=== PATIENT | female | born 1935 | race Caucasian/White ===

== ENCOUNTER → 2017-12-13 07:40 | Outpatient (CLI) | payer MEDICARE, SELFPAY ==
[2017-12-13 08:15] LABS: Add Manual Diff / Slide Review NO; Basophils Percent Auto 0.8 % (0-2); Eosinophils Percent Auto 1.7 % (2-4); Hematocrit 35.4 % (36-46); Hemoglobin 12.1 g/dL (12.0-16.0); Lymphocytes Percent Auto 26.3 % (25-40); Mean Corpuscular HGB Conc 34.2 % (30-36); Mean Corpuscular Hemoglobin 32.1 PG (26-34); Monocytes Percent Auto 14.3 % (3-14); Neutrophils Absolute Auto 2700 /uL (3000-5900); Neutrophils Percent Auto 56.9 % (50-75); Platelet Count 235 X10^3/uL (150-400); Red Blood Cell Count 3.77 X10^6/uL (4.0-5.2); White Blood Cell Count 4.8 X10^3/uL (4.5-11.0)
[2017-12-13 08:45] LABS: Alanine Aminotransferase 20 IU/L (9-52); Albumin Globulin Ratio 1.2 (1.0-2.8); Alkaline Phosphatase 76 U/L (38-126); Aspartate Aminotransferase 29 IU/L (14-36); BUN Creatinine Ratio 28.9 (6-22); Bilirubin Total 0.7 mg/dL (0.2-1.3); Blood Urea Nitrogen 26 mg/dL (7-17); Calcium 9.7 mg/dL (8.4-10.2); Carbon Dioxide 34 mmol/L (22-32); Chloride 101 mmol/L (98-107); Cholesterol 204 mg/dL (140-199); Estimated Glomerular Filt Rate > 60.0 mL/min (>60); Globulin 3.4 g/dL (1.7-4.1); Glucose 90 mg/dL (80-110); HDL Cholesterol 51 mg/dL (40-60); HEMOLYSIS < 15 (0-50); LDL Cholesterol Calculated 130 mg/dL (<100); Potassium 3.8 mmol/L (3.4-5.1); Sodium 144 mmol/L (137-145); Total Protein 7.4 g/dL (6.3-8.2); Triglycerides 113 mg/dL (35-150)
[2017-12-13 09:25] LABS: Thyroid Stimulating Hormone 2.12 uIU/mL (0.47-4.68)
== END ==
PROVIDERS: PCP Family Medicine; Visit Provider Family Medicine
DX: I10 Essential (primary) hypertension (principal); Z13.9 Encounter for screening, unspecified; E78.5 Hyperlipidemia, unspecified
CPT/HCPCS: 36415; 80053; 80061; 84443; 85025

== ENCOUNTER → 2018-05-18 09:17 | Outpatient (CLI) | payer MEDICARE, SELFPAY ==
[2018-05-18 10:05] LABS: Add Manual Diff / Slide Review NO; Basophils Absolute Auto 100 /uL (0-100); Basophils Percent Auto 1.1 % (0-2); Eosinophils Absolute Auto 200 /uL (0-450); Eosinophils Percent Auto 4.5 % (2-4); Hematocrit 36.1 % (36-46); Hemoglobin 12.1 g/dL (12.0-16.0); Lymphocytes Absolute Auto 1100 /uL (1100-4500); Mean Corpuscular HGB Conc 33.5 % (30-36); Mean Corpuscular Hemoglobin 31.9 PG (26-34); Mean Corpuscular Volume 95.1 fL (80-100); Monocytes Absolute Auto 700 /uL (0-900); Monocytes Percent Auto 15.6 % (3-14); Neutrophils Absolute Auto 2700 /uL (1500-7000); Neutrophils Percent Auto 55.8 % (50-75); Platelet Count 251 X10^3/uL (150-400); Red Cell Distribution Width 13.1 % (11.6-14.8); White Blood Cell Count 4.8 X10^3/uL (4.5-11.0)
[2018-05-18 10:37] LABS: Alanine Aminotransferase 23 IU/L (9-52); Albumin 4.1 g/dL (3.5-5.0); Albumin Globulin Ratio 1.2 (1.0-2.8); Alkaline Phosphatase 81 U/L (38-126); Aspartate Aminotransferase 27 IU/L (14-36); BUN Creatinine Ratio 28.9 (6-22); Bilirubin Total 0.6 mg/dL (0.2-1.3); Blood Urea Nitrogen 26 mg/dL (7-17); Calcium 9.4 mg/dL (8.4-10.2); Carbon Dioxide 30 mmol/L (22-32); Chloride 100 mmol/L (98-107); Cholesterol 202 mg/dL (140-199); Estimated Glomerular Filt Rate 59.9 mL/min (>60); Globulin 3.3 g/dL (1.7-4.1); Glucose 89 mg/dL (80-110); HDL Cholesterol 50 mg/dL (40-60); HEMOLYSIS < 15 (0-50); LDL Cholesterol Calculated 133 mg/dL (<100); Potassium 3.8 mmol/L (3.4-5.1); Sodium 139 mmol/L (137-145); Total Protein 7.4 g/dL (6.3-8.2); Triglycerides 94 mg/dL (35-150)
== END ==
PROVIDERS: PCP Family Medicine; Visit Provider Family Medicine
DX: E78.5 Hyperlipidemia, unspecified (principal); I10 Essential (primary) hypertension
CPT/HCPCS: 36415; 80053; 80061; 85025

== ENCOUNTER → 2018-07-16 14:13 | Outpatient (CLI) | payer MEDICARE, SELFPAY ==
[2018-07-16 16:34] LABS: Bacteria Urine Few (2-10); RBC Urine 1-5/HPF (0-5/HPF); Squamous Epithelial Cell Urine None Seen (0-5/HPF); WBC Urine 1-5/HPF (0-5/HPF)
== END ==
PROVIDERS: PCP Family Medicine; Visit Provider Physician Assistant
DX: R31.9 Hematuria, unspecified (principal)
CPT/HCPCS: 81015; 87077; 87086; 87147; 87186

== ENCOUNTER → 2018-08-02 10:07 | Outpatient (CLI) | payer MEDICARE, SELFPAY ==
--- NOTE | 2018-08-02 10:09 | DI.RAD.S_ITS ---
PROCEDURE: XR HIP W PEL IF DONE RT 2V INDICATIONS: R hip pain TECHNIQUE: Single view of the hip were acquired. COMPARISON: [facility], , HIP 2V RIGHT, 06/27/2008, 9:14. FINDINGS: Bones: There is moderate to severe right hip joint space narrowing. This is increased in severity when compared with the prior film dated 06/27/08. Small osteophytes are now present as well. Soft tissues: No suspicious soft tissue calcifications or masses. IMPRESSION: Progressive osteoarthritis of the right hip joint. Dictated by: Aixa Faria M.D. on 08/02/2018 at 11:37 Approved by: Aixa Faria M.D. on 08/02/2018 at 11:38
--- NOTE | 2018-08-02 10:09 | DI.RAD.S_ITS ---
PROCEDURE: XR LUMBAR SPINE 2-3V INDICATIONS: Low back pain TECHNIQUE: 3 views of the lumbar spine were acquired. COMPARISON: None. FINDINGS: Bones: 5 [id number] vertebrae are present. There is grade I L2 on L3 retrolisthesis and L4 on L5 anterolisthesis. Severe degenerative changes are present throughout the lumbar spine including intervertebral disc space narrowing, endplate sclerosis, osteophytosis, and facet sclerosis. Soft tissues: Dense atheromatous calcifications are present throughout the abnormal aorta. Overlying bowel gas pattern is normal. IMPRESSION: Severe degenerative change and anterolisthesis. Aortic atherosclerosis. Dictated by: Aixa Faria M.D. on 08/02/2018 at 11:38 Approved by: Aixa Faria M.D. on 08/02/2018 at 11:39
== END ==
PROVIDERS: PCP Family Medicine; Visit Provider Family Medicine
DX: M25.551 Pain in right hip (principal); M16.11 Unilateral primary osteoarthritis, right hip; M54.5 Low back pain; M47.816 Spondylosis without myelopathy or radiculopathy, lumbar region; M43.16 Spondylolisthesis, lumbar region; I70.0 Atherosclerosis of aorta
CPT/HCPCS: 72100; 73502

== ENCOUNTER 2018-10-03 07:00 | Outpatient (CLI) | payer MEDICARE, SELFPAY ==
[2018-10-03] MEDS: PROPARACAINE 0.5% OPHTH SOL 2 DROPS EYE-OP (07:10)
[2018-10-03] MEDS: CATARACT EYE COMPOUND (10 DROPS/SYRINGE) 3 DROPS EYE-OP (07:15)
[2018-10-03 07:19] VITALS: BP 125/70; PULSE 72; RESP 15; TEMP 36.8; O2SAT 97; BMI 28.3
--- NOTE | 2018-10-03 07:46 | PM.PREOP ---
Pre-operative Note Interval Note History & Physical reviewed/Exam performed by Physician: No Changes to H&P: No
--- NOTE | 2018-10-03 07:46 | PM.OP.1 ---
Operative Date/Time/Diagnoses Pre-op diagnosis: Nuclear cataract right eye Procedure & Clinicians Procedure: Cataract Surgery Same procedure as scheduled: Yes Surgeon: Isra Martinez Anesthesia Type: MAC +/- and Sedation Operative Notes Procedure in detail: Patient brought to the operating suite. Tetracaine drops placed in the right eye. Patient was prepped and draped in sterile manner. Wire lid speculum was placed in the eye. Betadine drops were placed on the eye. This was irrigated. Lidocaine jelly was placed on the eye. A paracentesis port was created with a side-port blade. 0.1 mL 1% preservative free lidocaine was injected into the anterior chamber. The anterior chamber was deepened with viscoelastic. 2.6 mm keratome was used to create a temporal clear corneal incision. Cystotome and Utrata forceps were used to create continuous tear capsulorrhexis. Balanced salt solution was used to hydro dissect the nucleus. The phacoemulsification handpiece was inserted and the nucleus was removed using the stop and chop technique. The irrigation aspiration handpiece was inserted and the remaining cortex was removed. Anterior chamber was deepened with viscoelastic. An Real ZCB00 intraocular lens with a power of 18.0 was injected into the capsular bag. Irrigation aspiration handpiece was inserted and the remaining viscoelastic was removed. Incision was hydrated with balanced salt solution and found to be leak free with pressure with Weck-Genoveva sponges. 0.1 mL Vigamox injected anterior chamber. 0.3 mL Kenalog 10 mg was injected subconjunctivally. Lid speculum was removed. The patient left the operating room in excellent condition. Complications: none Condition: stable Disposition: same day surgery
[2018-10-03 08:03] VITALS: BP 105/60; PULSE 63; RESP 16; TEMP 36.1; O2SAT 100
[2018-10-03] MEDS: MOXIFLOXACIN OPHTH DROPS 3 ML BOTTLE 2 DROPS INJ (08:27)
[2018-10-03] MEDS: TRIAMCINOLONE 50 MG/5 ML VIAL INJ (08:27)
[2018-10-03] MEDS: PHENYLEPHRINE/LIDOCAINE VIAL (OR) 0.2 ML EYE-OP (08:27)
[2018-10-03] MEDS: CHONDROIDTIN/SOD HYALURONATE 1.05 ML SYRINGE INTRAOCULA (08:28)
[2018-10-03] MEDS: BALANCED SALT IRRIG SOLN NO.2 500 ML, EPINEPHrine 1 MG IRR (08:28)
[2018-10-03] MEDS: TETRACAINE 0.5% OPHTH DROPS 4 ML 2 DROPS EYE-OP (08:28)
== END 2018-10-03 08:20 ==
PROVIDERS: PCP Family Medicine; Visit Provider Ophthalmology
PROC: (CPT 66984; principal; 2018-10-03 07:45)
DX: H25.11 Age-related nuclear cataract, right eye (principal); I10 Essential (primary) hypertension
CPT/HCPCS: 66984; J0171; J2250; J3301

== ENCOUNTER 2018-10-17 06:29 | Day surgery (SDC) | payer MEDICARE, SELFPAY ==
[2018-10-17 07:10] VITALS: BP 126/62; PULSE 69; RESP 15; TEMP 36.3; O2SAT 96; BMI 28.1
[2018-10-17] MEDS: PROPARACAINE 0.5% OPHTH SOL 2 DROPS EYE-OP (07:14)
[2018-10-17] MEDS: CATARACT EYE COMPOUND (10 DROPS/SYRINGE) 3 DROPS EYE-OP (07:16)
--- NOTE | 2018-10-17 07:44 | PM.PREOP ---
Pre-operative Note Interval Note History & Physical reviewed/Exam performed by Physician: No Changes to H&P: No
--- NOTE | 2018-10-17 07:45 | PM.OP.1 ---
Operative Date/Time/Diagnoses Pre-op diagnosis: Nuclear Cataract Left eye Post-op diagnosis: same Procedure & Clinicians Surgeon: Isra Martinez Anesthesia Type: MAC +/- and Sedation Operative Notes Procedure in detail: Patient brought to the operating suite. Tetracaine drops placed in the left eye. Patient was prepped and draped in sterile manner. Wire lid speculum was placed in the eye. Betadine drops were placed on the eye. This was irrigated. Lidocaine jelly was placed on the eye. A paracentesis port was created with a side-port blade. 0.1 mL 1% preservative free lidocaine was injected into the anterior chamber. The anterior chamber was deepened with viscoelastic. 2.6 mm keratome was used to create a temporal clear corneal incision. Cystotome and Utrata forceps were used to create continuous tear capsulorrhexis. Balanced salt solution was used to hydro dissect the nucleus. The phacoemulsification handpiece was inserted and the nucleus was removed using the stop and chop technique. The irrigation aspiration handpiece was inserted and the remaining cortex was removed. Anterior chamber was deepened with viscoelastic. An Real ZCB00 intraocular lens with a power of 19.5 was injected into the capsular bag. Irrigation aspiration handpiece was inserted and the remaining viscoelastic was removed. Incision was hydrated with balanced salt solution and found to be leak free with pressure with Weck-Genoveva sponges. 0.1 mL Vigamox injected anterior chamber. 0.3 mL Kenalog 10 mg was injected subconjunctivally. Lid speculum was removed. The patient left the operating room in excellent condition. Complications: none Condition: stable Disposition: same day surgery
[2018-10-17] MEDS: PHENYLEPHRINE/LIDOCAINE VIAL (OR) 0.2 ML EYE-OP (07:51)
[2018-10-17] MEDS: MOXIFLOXACIN OPHTH DROPS 3 ML BOTTLE 2 DROPS INJ (07:51)
[2018-10-17] MEDS: CHONDROIDTIN/SOD HYALURONATE 1.05 ML SYRINGE INTRAOCULA (07:52)
[2018-10-17] MEDS: LIDOCAINE JELLY 2% 5 ML 1 APPLIC TOP (07:52)
[2018-10-17] MEDS: TETRACAINE 0.5% OPHTH DROPS 4 ML 2 DROPS EYE-OP (07:52)
[2018-10-17] MEDS: BALANCED SALT IRRIG SOLN NO.2 500 ML, EPINEPHrine 1 MG IRR (07:52)
[2018-10-17] MEDS: TRIAMCINOLONE 50 MG/5 ML VIAL INJ (07:52)
[2018-10-17 08:00] VITALS: BP 111/67; PULSE 60; RESP 12; TEMP 36; O2SAT 98
== END 2018-10-17 08:18 | disposition home or self-care (01) ==
LOC: OR 06:30
PROVIDERS: PCP Family Medicine; Visit Provider Ophthalmology
PROC: (CPT 66984; principal; 2018-10-17 07:45)
DX: H25.12 Age-related nuclear cataract, left eye (principal); I10 Essential (primary) hypertension
CPT/HCPCS: 66984; J0171; J2250; J3010; J3301

== ENCOUNTER → 2018-11-16 14:19 | Outpatient (CLI) | payer MEDICARE, SELFPAY | PROVIDERS: PCP Family Medicine; Visit Provider Family Medicine | DX: M85.852 Other specified disorders of bone density and structure, left thigh (principal); Z78.0 Asymptomatic menopausal state; M85.851 Other specified disorders of bone density and structure, right thigh | CPT/HCPCS: 77080 ==

== ENCOUNTER 2018-11-29 16:45 | Outpatient (RCR) | payer MEDICARE, SELFPAY ==
--- NOTE | 2018-09-01 16:39 | PT.OIE ---
Current Diagnoses Unilateral primary osteoarthritis, unspecified hip (09/01/18) Spondylosis without myelopathy or radiculopathy, site unspecified (09/01/18) Past Medical History (Last Reviewed 01/02/18 @ 12:53 by Natalie Warren DO) Carotid bruit (Chronic Unknown) Hyperlipemia (Chronic Unknown) Hypertension (Chronic Unknown) Osteoarthritis (Chronic ~2009) Osteopenia (Chronic ~2017) Anemia (Resolved Unknown) Chickenpox (Resolved) Fractures (Resolved Unknown) Hematuria (Resolved Unknown) Hemorrhoids (Resolved ~2010) Measles (Resolved) Mumps (Resolved) Past Surgical History (Last Reviewed 10/19/17 @ 14:01 by Natalie Warren DO) History of knee replacement (Resolved ~2001) Provider Visit Care Team Role Provider Type Natalie Warren DO Attending Provider Physician Primary Care Provider Specialty: Family Practice Address: [address] [place] [address] Email: [email or web address] Physical Therapy Initial Evaluation PT-OP-A Visit Information Start: 09/01/18 14:45 Freq: Status: Active Protocol: Document 09/01/18 13:45 HH (Rec: 09/01/18 15:15 [email or web address]) Out-Patient Physical Therapy Visit Information Visit Information Visit Type Initial Evaluation Visit Start Time 13:45 Visit Stop Time 14:30 Total Visit Minutes 45 Visit Number 1 Number of CRUTCHING CONTRACTOR Visits 0 Evaluation Information Evaluation Date 09/01/18 PT-OP-B Current Condition Start: 09/01/18 14:45 Freq: Status: Active Protocol: Document 09/01/18 13:45 HH (Rec: 09/01/18 15:15 [email or web address]) Current Condition History of Current Condition Onset Date >1 year ago Current Complaints B carpel tunnel syndrome, difficulty in readying and knitting History of Current Condition pt presents to clinic today with primary c/o of B carpel tunnel syndrome started more than a year ago. Pt does not know why but symptoms tend to start while she is knitting and reading. She also c/o ongoing R shoulder pain but it does not bother her functional mobility at this point. She describes it as numbness and tingling sensation at 2nd-4th finger tips and bilateral wrists. symptoms usually get worse with knitting or holding her book for more than 10-15 mins that she has to stop and rest in order to relieve her symptoms. She also stated placing her fingers into extension also relieve her symptoms. In addition, she is now having difficulty in sleeping too with intermittent tingling and numbness sensation. Pt did not have physical therapy before. Prior Treatments and Tests pt did not have any diagnostic imaging done. Future Testing and Treatments Planned Pt is going to have PT evaluation for her LBP and L knee pain next week Treatment Goals Patient/Caregiver Goals 1. able to knit as long as she can without pain 2. able to read more than an hour without symptoms 3. to improve overall shoulder strength Prior Functional Status Baseline Function- ADL's Independent Baseline Function- Mobility Independent Baseline Function- Recreation/Hobbies Pt was able to knit and read for more than an hour Current Functional Impairments (Reported) Functional Limitations- Recreation/ unable to knit and read for Hobbies more than 10 mins PT-OP-C Subjective Start: 09/01/18 14:45 Freq: Status: Active Protocol: Document 09/01/18 13:45 HH (Rec: 09/01/18 15:15 [email or web address]) OP-PT Subjective Patient Comments Patient Comments I want to get better OP-PT Pain Assessment Location Right Shoulder Pain Location Details r shoulder joint Intensity 2 Scale Used Numeric (1 - 10) Description Aching Dull Frequency Intermittent Pain Aggravating Factors Exercise Lifting Pain Alleviating Factors Inactivity PT-OP-F Manual Assessment Start: 09/01/18 14:45 Freq: Status: Active Protocol: Document 09/01/18 13:45 HH (Rec: 09/01/18 16:39 [email or web address]) Manual Assessments Joint Mobility Assessment Joint Mobility Assessment hypermobile lower cervical segmental mobility (C4-C6) Hypomobile upper thoracic segmental mobility (T1-T4) PT-OP-J Posture/Palpation/Skin Start: 09/01/18 14:45 Freq: Status: Active Protocol: Document 09/01/18 13:45 HH (Rec: 09/01/18 15:15 [email or web address]) Posture Evaluation Position Standing Evaluation View Lateral Head/C-Spine Posture Forward Head T-Spine Posture Increased Kyphosis L-Spine Posture Flexed Pelvis Posture Anteriorly Tilted PT-OP-K Range of Motion Start: 09/01/18 14:45 Freq: Status: Active Protocol: Document 09/01/18 13:45 HH (Rec: 09/01/18 15:15 [email or web address]) Cervical Spine Range of Motion Cervical Spine Active Degrees Testing Position Sitting Flexion 35 Extension 15 Rotation Left 45 Rotation Right 40 Lateral Flexion Left 25 Lateral Flexion Right 23 ROM Limitations Soft Tissue Tightness Muscle Weakness Shoulder Goniometric Range of Motion Shoulder Right Active Shoulder ROM WFL No Testing Position Standing Flexion 130 Extension 65 Abduction 115 Left Active Shoulder ROM WFL No Testing Position Standing Flexion 130 Extension 65 Abduction 115 PT-OP-L Special Tests Start: 09/01/18 14:45 Freq: Status: Active Protocol: Document 09/01/18 13:45 HH (Rec: 09/01/18 15:15 [email or web address]) Special Tests Cervical Spine Special Tests Upper Limb Tension Test Test Results +VE B Comments R >L Spurling's Test Test Results -ve B Foraminal Compression Test Results +ve on R PT-OP-M Strength Start: 09/01/18 14:45 Freq: Status: Active Protocol: Document 09/01/18 13:45 HH (Rec: 09/01/18 15:15 [email or web address]) Cervical Spine Strength Cervical Spine Manual Muscle Testing Testing Position Sitting Flexion (C1-2) 4 Good Extension 4- Good- Rotation Left 4 Good Rotation Right 4 Good Lateral Flexion Left (C3) 4 Good Lateral Flexion Right (C3) 4 Good Shoulder Strength Shoulder Manual Muscle Testing Right Flexion 4 Good Extension 4+ Good+ Abduction (C5) 4- Good- Left Flexion 4+ Good+ Extension 4+ Good+ Abduction (C5) 4+ Good+ PT-OP-Q Treatments Start: 09/01/18 14:45 Freq: Status: Active Protocol: Document 09/01/18 13:45 HH (Rec: 09/01/18 15:15 [email or web address]) Therapeutic Exercises Supine Exercises chin tuck Side bilateral Reps/Minutes 5 mins Comments cues on alignment and push against pillow Manual Therapy Treatment Manual Traction Cervical Body Position Supine Reps/Duration 10 mins Nerve Glides median nerve glide Nerve median Body Position Supine Reps/Duration 5 mins PT-OP-T Assessment and Plan Start: 09/01/18 14:45 Freq: Status: Active Protocol: Document 09/01/18 13:45 HH (Rec: 09/01/18 15:15 [email or web address]) Physical Therapy Assessment Rehab Potential Rehabilitation Potential Good Evaluation Complexity Number of Personal Factors/Comorbidities 3 or More Number of Body Systems Impaired 4 or More Clinical Presentation at Evaluation Stable Impairments Impairments Activity Tolerance Functional Activities Functional Mobility Pain Posture ROM Soft Tissue Mobility Strength Other Concerns Fall Risk mod Goals HEP Impairment pt does not have a HEP Senior Care Goal (LTG) Pt will be able to follow HEP independently with proper and safe body mechanics LTG Duration 6 weeks neurological symptoms Impairment intermittent tingling and numbness sensation on both hands Tool Drawing Checker Goal (LTG) Pt will not experience tingling/numbness sensation on both hands during knitting/ book reading for more than 30 mins. LTG Duration 10 weeks strength Impairment Slight decreased b shoulder strength Senior Care Goal (LTG) Pt will be able to increase 1 MMT grade of B shoulder strength to improver her overhead mobility LTG Duration 10 weeks Assessment Summary Assessment Pt is low complexity with B Carpel Tunnel Syndrome. Pt currently does not c/o pain and symptoms unless during knitting and reading. Upon assessment, pt's symptoms are reproduced with increased numbness and tingling with cervical compression test and upper limb tension test. Pt also demonstrates a significant forward head posture with dowager hump at T1-T2 along with increased thoracic kyphosis. During mobility assessment, pt's cervical movements primarily take place at C6/C7 with noticeable angulation during cervical extension and lateral flexion. This possibly increases nerve root pressure at lower cervical region which leads to pt's symptoms. Pt will benefit from skilled therapy for postural sabianist, overall scapular and cervical musculature strengthening and flexibility training. Physical Therapy Plan Frequency and Duration Frequency of Treatment 2x/Week Duration of Treatment 10 weeks Plan of Care Start Date 09/01/18 Plan of Care End Date 11/19/18 Therapeutic Interventions Therapeutic Interventions Home Exercise Program Joint Mobilizations Manual Therapy Neuromuscular Re-education Patient/Caregiver Education Self-Care/Home Management Soft Tissue Mobilization Taping Therapeutic Activities Therapeutic Exercises Modalities Cold Pack/Ice Massage Electric Stimulation Hot Packs Infrared Therapy Traction- Mechanical Ultrasound Next Visit Focus/Plan Next Note Type Treatment Note Next Visit Plan provide hep and quick dash questionnaire reading and sleeping position education test chief guard strength review chin tuck, cervical stretch thoracic mobility training, nerve glide as danay
--- NOTE | 2018-09-01 16:40 | PT.OPPOC ---
Current Diagnoses Unilateral primary osteoarthritis, unspecified hip (09/01/18) Spondylosis without myelopathy or radiculopathy, site unspecified (09/01/18) Provider Visit Care Team Role Provider Type Natalie Warren DO Attending Provider Physician Primary Care Provider Specialty: [facility] Address: [address] [place] [address], [id number] Email: [email or web address] Plan Of Care PT-OP-T Assessment and Plan Start: 09/01/18 14:45 Freq: Status: Active Protocol: Document 09/01/18 13:45 HH (Rec: 09/01/18 15:15 HH [email or web address]) Physical Therapy Assessment Rehab Potential Rehabilitation Potential Good Evaluation Complexity Number of Personal Factors/Comorbidities 3 or More Number of Body Systems Impaired 4 or More Clinical Presentation at Evaluation Stable Impairments Impairments Activity Tolerance Functional Activities Functional Mobility Pain Posture ROM Soft Tissue Mobility Strength Other Concerns Fall Risk mod Goals HEP Impairment pt does not have a HEP Intermediate Goal (LTG) Pt will be able to follow HEP independently with proper and safe body mechanics LTG Duration 6 weeks neurological symptoms Impairment intermittent tingling and numbness sensation on both hands Intermediate Goal (LTG) Pt will not experience tingling/numbness sensation on both hands during knitting/ book reading for more than 30 mins. LTG Duration 10 weeks strength Impairment Slight decreased b shoulder strength Intermediate Goal (LTG) Pt will be able to increase 1 MMT grade of B shoulder strength to improver her overhead mobility LTG Duration 10 weeks Assessment Summary Assessment Pt is low complexity with B Carpel Tunnel Syndrome. Pt currently does not c/o pain and symptoms unless during knitting and reading. Upon asssessment, pt's symptoms are reproduced with increased numbness and tingling with cervical compression test and upper limb tension test. Pt also demonstrates a significant forward head posture with dowager hump at T1-T2 along with increased thoracic kyphosis. During mobility assessment, pt's cervical movements primarily take place at C6/C7 with noticeable angulation during cervical extension and lateral flexion. This possibly increases nerve root pressure at lower cervical region which leads to pt's symptoms. Pt will benefit from skilled therapy for postural samaritan, overall scapular and cervical musculature strengthening and flexibility training. Physical Therapy Plan Frequency and Duration Frequency of Treatment 2x/Week Duration of Treatment 10 weeks Plan of Care Start Date 09/01/18 Plan of Care End Date 11/19/18 Therapeutic Interventions Therapeutic Interventions Home Exercise Program Joint Mobilizations Manual Therapy Neuromuscular Re-education Patient/Caregiver Education Self-Care/Home Management Soft Tissue Mobilization Taping Therapeutic Activities Therapeutic Exercises Modalities Cold Pack/Ice Massage Electric Stimulation Hot Packs Infrared Therapy Traction- Mechanical Ultrasound Next Visit Focus/Plan Next Note Type Treatment Note Next Visit Plan provide hep and quick dash questionnaire reading and sleeping position education test marble rubber strength review chin tuck, cervical stretch thoracic mobility training, nerve glide as danay Plan of Care Dates Plan of Care Start Date 09/01/18 Plan of Care End Date 11/19/18 Please Sign and Return: I have reviewed this Plan of Care and certify that the skilled therapy services above are required to meet the patient?s needs. Physician Signature Date Printed Name and Credentials Clinical Instructor Signature Printed Name and Credentials
--- NOTE | 2018-09-06 12:23 | PT.OTN ---
Current Diagnoses Unilateral primary osteoarthritis, unspecified hip (09/06/18) Spondylosis without myelopathy or radiculopathy, site unspecified (09/06/18) Physical Therapy Treatment Note PT-OP-A Visit Information Start: 09/01/18 14:45 Freq: Status: Active Protocol: Document 09/06/18 12:12 SA (Rec: 09/06/18 12:23 SA [email or web address]) Out-Patient Physical Therapy Visit Information Visit Information Visit Type Treatment Note Visit Start Time 09:00 Visit Stop Time 09:46 Total Visit Minutes 46 Visit Number 2 Number of CANNON FIRE DIRECTION SPECIALIST Visits 1 PT-OP-B Current Condition Start: 09/01/18 14:45 Freq: Status: Active Protocol: Document 09/01/18 13:45 HH (Rec: 09/01/18 15:15 HH [email or web address]) Current Condition History of Current Condition Onset Date >1 year ago Current Complaints B carpel tunnel syndrome, difficulty in readying and knitting History of Current Condition pt presents to clinic today with primary c/o of B carpel tunnel syndrome started more than a year ago. Pt does not know why but symptoms tend to start while she is knitting and reading. She also c/o ongoing R shoulder pain but it does not bother her functional mobility at this point. She decribes it as numbness and tingling sensation at 2nd-4th finger tips and bilateral wrists. symptoms usually get worse with knitting or holding her book for more than 10-15 mins that she has to stop and rest in order to relieve her symptoms. She also stated placing her fingers into extension also relieve her symptoms. In addition, she is now having difficulty in sleeping too with intermittent tingling and numbness sensation. Pt did not have physical therapy before. Prior Treatments and Tests pt did not have any diagnostic imaging done. Future Testing and Treatments Planned Pt is going to have PT evaluation for her LBP and L knee pain next week Treatment Goals Patient/Caregiver Goals 1. able to knit as long as she can without pain 2. able to read more than an hour without symptoms 3. to improve overall shoulder strength Prior Functional Status Baseline Function- ADL's Independent Baseline Function- Mobility Independent Baseline Function- Recreation/Hobbies Pt was able to knit and read for more than an hour Current Functional Impairments (Reported) Functional Limitations- Recreation/ unable to knit and read for Hobbies more than 10 mins PT-OP-C Subjective Start: 09/01/18 14:45 Freq: Status: Active Protocol: Document 09/06/18 12:12 SA (Rec: 09/06/18 12:23 SA [email or web address]) OP-PT Subjective Patient Comments Patient Comments Pt reports she thinks she has been doing chin tucks wrong, numbness/tingling in B hands is about the same. PT-OP-F Manual Assessment Start: 09/01/18 14:45 Freq: Status: Active Protocol: Document 09/01/18 13:45 HH (Rec: 09/01/18 16:39 HH [email or web address]) Manual Assessments Joint Mobility Assessment Joint Mobility Assessment hypermobility lower cervical segmental mobility (C4-C6) Hypomobile upper thoracic segmental mobility (T1-T4) PT-OP-J Posture/Palpation/Skin Start: 09/01/18 14:45 Freq: Status: Active Protocol: Document 09/01/18 13:45 HH (Rec: 09/01/18 15:15 HH [email or web address]) Posture Evaluation Position Standing Evaluation View Lateral Head/C-Spine Posture Forward Head T-Spine Posture Increased Kyphosis L-Spine Posture Flexed Pelvis Posture Anteriorly Tilted PT-OP-K Range of Motion Start: 09/01/18 14:45 Freq: Status: Active Protocol: Document 09/01/18 13:45 HH (Rec: 09/01/18 15:15 HH [email or web address]) Cervical Spine Range of Motion Cervical Spine Active Degrees Testing Position Sitting Flexion 35 Extension 15 Rotation Left 45 Rotation Right 40 Lateral Flexion Left 25 Lateral Flexion Right 23 ROM Limitations Soft Tissue Tightness Muscle Weakness Shoulder Goniometric Range of Motion Shoulder Right Active Shoulder ROM WFL No Testing Position Standing Flexion 130 Extension 65 Abduction 115 Left Active Shoulder ROM WFL No Testing Position Standing Flexion 130 Extension 65 Abduction 115 PT-OP-L Special Tests Start: 09/01/18 14:45 Freq: Status: Active Protocol: Document 09/01/18 13:45 HH (Rec: 09/01/18 15:15 HH [email or web address]) Special Tests Cervical Spine Special Tests Upper Limb Tension Test Test Results +VE B Comments R >L Spurling's Test Test Results -ve B Foraminal Compression Test Results +ve on R PT-OP-M Strength Start: 09/01/18 14:45 Freq: Status: Active Protocol: Document 09/01/18 13:45 HH (Rec: 09/01/18 15:15 HH [email or web address]) Cervical Spine Strength Cervical Spine Manual Muscle Testing Testing Position Sitting Flexion (C1-2) 4 Good Extension 4- Good- Rotation Left 4 Good Rotation Right 4 Good Lateral Flexion Left (C3) 4 Good Lateral Flexion Right (C3) 4 Good Shoulder Strength Shoulder Manual Muscle Testing Right Flexion 4 Good Extension 4+ Good+ Abduction (C5) 4- Good- Left Flexion 4+ Good+ Extension 4+ Good+ Abduction (C5) 4+ Good+ PT-OP-Q Treatments Start: 09/01/18 14:45 Freq: Status: Active Protocol: Document 09/06/18 12:12 SA (Rec: 09/06/18 12:23 SA [email or web address]) Therapeutic Exercises Supine Exercises chin tuck Side bilateral Reps/Minutes 5 mins Comments cues on alignment and push against pillow Sitting Exercises Thoracic EXT/postural correction Side bilateral Reps/Minutes 3 min Comments cues for alignment UT/Scalenes stretch Side bilateral Reps/Minutes 30 x 4 each Standing Exercises Scapular rows Side bilateral Resistance TB LV 1 Reps/Minutes 15x Manual Therapy Treatment Soft Tissue Mobilization Sub-occipital, B UTs and scalenes Mobilization Type Myofascial Release Rolling Trigger Point Release Intensity/Depth Moderate Body Position Hooklying Manual Traction Cervical Body Position Supine Reps/Duration 10 mins Manual Techniques PROM to c-spine Body Location c-spine Body Position Hooklying Comments B rotation, side bend and ext with gentle end range stretch. PT-OP-T Assessment and Plan Start: 09/01/18 14:45 Freq: Status: Active Protocol: Document 09/06/18 12:12 SA (Rec: 09/06/18 12:23 [email or web address]) Physical Therapy Assessment Assessment Summary Assessment Pt provided with handout for HEP and review of form with exercises. Completed Quick dash and education for postural correction through out the day. Pt responded well to manual therapy. Physical Therapy Plan Next Visit Focus/Plan Next Visit Plan Follow up with HEP performance reading and sleeping position education test archival records clerk strength thoracic mobility training, nerve glide as danay
--- NOTE | 2018-09-08 16:13 | PT.OTN ---
Current Diagnoses Unilateral primary osteoarthritis, unspecified hip (09/08/18) Spondylosis without myelopathy or radiculopathy, site unspecified (09/08/18) Physical Therapy Treatment Note PT-OP-A Visit Information Start: 09/01/18 14:45 Freq: Status: Active Protocol: Document 09/08/18 11:15 HH (Rec: 09/08/18 16:13 HH [email or web address]) Out-Patient Physical Therapy Visit Information Visit Information Visit Type Treatment Note Visit Start Time 11:15 Visit Stop Time 12:00 Total Visit Minutes 45 Visit Number 3 Number of BURN NURSE Visits 0 PT-OP-B Current Condition Start: 09/01/18 14:45 Freq: Status: Active Protocol: Document 09/01/18 13:45 HH (Rec: 09/01/18 15:15 HH [email or web address]) Current Condition History of Current Condition Onset Date >1 year ago Current Complaints B carpel tunnel syndrome, difficulty in readying and knitting History of Current Condition pt presents to clinic today with primary c/o of B carpel tunnel syndrome started more than a year ago. Pt does not know why but symptoms tend to start while she is knitting and reading. She also c/o ongoing R shoulder pain but it does not bother her functional mobility at this point. She decribes it as numbness and tingling sensation at 2nd-4th finger tips and bilateral wrists. symptoms usually get worse with knitting or holding her book for more than 10-15 mins that she has to stop and rest in order to relieve her symptoms. She also stated placing her fingers into extension also relieve her symptoms. In addition, she is now having difficulty in sleeping too with intermittent tingling and numbness sensation. Pt did not have physical therapy before. Prior Treatments and Tests pt did not have any diagnostic imaging done. Future Testing and Treatments Planned Pt is going to have PT evaluation for her LBP and L knee pain next week Treatment Goals Patient/Caregiver Goals 1. able to knit as long as she can without pain 2. able to read more than an hour without symptoms 3. to improve overall shoulder strength Prior Functional Status Baseline Function- ADL's Independent Baseline Function- Mobility Independent Baseline Function- Recreation/Hobbies Pt was able to knit and read for more than an hour Current Functional Impairments (Reported) Functional Limitations- Recreation/ unable to knit and read for Hobbies more than 10 mins PT-OP-C Subjective Start: 09/01/18 14:45 Freq: Status: Active Protocol: Document 09/08/18 11:15 HH (Rec: 09/08/18 16:13 [email or web address]) OP-PT Subjective Patient Comments Patient Comments The hep is helping me. I feel less numb and tingling on my hands. But i had trouble doing trap stretch. Patient Reported Progress Improving Patient Questionnaires Quick Dash- Upper Extremity Quick Dash UE Score 36.36 Quick Dash UE Impairment 20 to 39% Impaired (Score 20- 39) PT-OP-F Manual Assessment Start: 09/01/18 14:45 Freq: Status: Active Protocol: Document 09/08/18 11:15 HH (Rec: 09/08/18 12:38 [email or web address]) Manual Assessments Soft Tissue Assessment Soft Tissue Mobility Assessment Significant tenderness to pressure on R paraspinals, R proximal glute max and medius, and piriformis PT-OP-G Mobility & Gait Start: 09/01/18 14:45 Freq: Status: Active Protocol: Document 09/08/18 11:15 HH (Rec: 09/08/18 12:38 [email or web address]) OP Gait Assessment Gait Gait Assistance Required: Independent Assistive Devices Assistive Device None Gait Deviations General Gait Pattern Antalgic Decreased Stride Length Decreased Feet Clearance Flexed Trunk Factors Limiting Gait Function Factors Limiting Gait Function Decreased Strength Limited Range of Motion Comments Gait Comments decreased time spent on LLE mid stance and early heel raise. flexed trunk during gait PT-OP-J Posture/Palpation/Skin Start: 09/01/18 14:45 Freq: Status: Active Protocol: Document 09/01/18 13:45 HH (Rec: 09/01/18 15:15 [email or web address]) Posture Evaluation Position Standing Evaluation View Lateral Head/C-Spine Posture Forward Head T-Spine Posture Increased Kyphosis L-Spine Posture Flexed Pelvis Posture Anteriorly Tilted PT-OP-K Range of Motion Start: 09/01/18 14:45 Freq: Status: Active Protocol: Document 09/08/18 11:15 HH (Rec: 09/08/18 12:38 [email or web address]) Lumbar Spine Range of Motion Lumbar Spine Active Percentage Testing Position Standing Flexion 70 Extension 0 Rotation Left 60 Rotation Right 60 Lateral Flexion Left 50 Lateral Flexion Right 50 Comments pain during lateral flexion and extension Hip Goniometric Range of Motion Hip Left Active Hip ROM WFL No Flexion w/Knee Flexed 120 Straight Leg Raise 90 Extension 0 Abduction 12 Right Active Hip ROM WFL No Flexion w/Knee Flexed 120 Straight Leg Raise 80 Extension 0 Abduction 10 PT-OP-L Special Tests Start: 09/01/18 14:45 Freq: Status: Active Protocol: Document 09/08/18 11:15 HH (Rec: 09/08/18 12:38 [email or web address]) Special Tests Lumbar Spine Special Tests facet syndrome Test Results +ve Comments R > L Hip Special Tests Scour Test Test Results +ve Comments pain at R hip joint CYNDI Test Results +Ve Comments on R pain at posterior hip PT-OP-M Strength Start: 09/01/18 14:45 Freq: Status: Active Protocol: Document 09/08/18 11:15 HH (Rec: 09/08/18 12:38 [email or web address]) Trunk Strength Trunk Manual Muscle Testing Testing Position Sitting Flexion 3+ Fair+ Extension 3+ Fair+ Rotation Left 3+ Fair+ Rotation Right 3+ Fair+ Lateral Flexion Left 3+ Fair+ Lateral Flexion Right 3+ Fair+ PT-OP-Q Treatments Start: 09/01/18 14:45 Freq: Status: Active Protocol: Document 09/08/18 11:15 HH (Rec: 09/08/18 16:13 [email or web address]) Therapeutic Exercises Supine Exercises supine sciatic nerve glide Supine Exercise Name hip 90 degrees with ankle DF and PF Side right Reps/Minutes 4 mins chin tuck Side bilateral Reps/Minutes 2 mins Comments cues on alignment and push against pillow Sidelying Exercises hip flexor stretch Side right Reps/Minutes 4 mins Sitting Exercises scap retraction and protraction Side bilateral Reps/Minutes 10 x2 table slides Side bilateral Reps/Minutes 10 x 3 Comments forward and diagonal direction UT/Scalenes stretch Side bilateral Reps/Minutes 30 x 4 each Comments correction on HEP to use chair edge for support Manual Therapy Treatment Soft Tissue Mobilization R gluteal max and piriformis Mobilization Type Cross-Friction Sustained Pressure Trigger Point Release Intensity/Depth Moderate Body Position Sidelying R lumbar paraspinals Mobilization Type Cross-Friction Strumming Sustained Pressure Trigger Point Release Intensity/Depth Moderate Body Position Sidelying Sub-occipital, B UTs and scalenes Mobilization Type Myofascial Release Rolling Trigger Point Release Intensity/Depth Moderate Body Position Hooklying PT-OP-T Assessment and Plan Start: 09/01/18 14:45 Freq: Status: Active Protocol: Document 09/08/18 11:15 HH (Rec: 09/08/18 16:13 HH [email or web address]) Physical Therapy Assessment Goals quick dash Impairment pt scores 36 (20-39 % impairment) Oil Rig Driller Goal (LTG) Pt will score 1-19 pts on quickdash to improve her functional neck and shoulder mobility. LTG Duration 10 weeks HEP Impairment pt does not have a HEP Prison Goal (LTG) Pt will be able to follow HEP independently with proper and safe body mechanics LTG Duration 6 weeks neurological symptoms Impairment intermittent tingling and numbness sensation on both hands Oil Rig Driller Goal (LTG) Pt will not experience tingling/numbness sensation on both hands during knitting/ book reading for more than 30 mins. LTG Duration 10 weeks strength Impairment Slight decreased b shoulder strength Prison Goal (LTG) Pt will be able to increase 1 MMT grade of B shoulder strength to improver her overhead mobility LTG Duration 10 weeks Assessment Summary Assessment Pt progressed well with less c /o on tingling/numbness sensation on both hands. Assess pt's hip and lumbar mobility today. Pt presents poor flexibility on B hip flexors and poor abdominal strength. Added table slides for trunk stretch Physical Therapy Plan Next Visit Focus/Plan Next Note Type Treatment Note Next Visit Plan Follow up with HEP performance reading and sleeping position education test tax examiner strength thoracic mobility training, nerve glide as danay hip flexor stretch postural education gait training as danay
--- NOTE | 2018-09-12 13:43 | PT.OTN ---
Current Diagnoses Unilateral primary osteoarthritis, unspecified hip (09/12/18) Spondylosis without myelopathy or radiculopathy, site unspecified (09/12/18) Physical Therapy Treatment Note PT-OP-A Visit Information Start: 09/01/18 14:45 Freq: Status: Active Protocol: Document 09/12/18 13:37 EA (Rec: 09/12/18 13:43 EA [id number]) Out-Patient Physical Therapy Visit Information Visit Information Visit Type Treatment Note Visit Start Time 13:00 Visit Stop Time 13:45 Total Visit Minutes 40 Visit Number 4 PT-OP-B Current Condition Start: 09/01/18 14:45 Freq: Status: Active Protocol: Document 09/01/18 13:45 HH (Rec: 09/01/18 15:15 HH [email or web address]) Current Condition History of Current Condition Onset Date >1 year ago Current Complaints B carpel tunnel syndrome, difficulty in readying and knitting History of Current Condition pt presents to clinic today with primary c/o of B carpel tunnel syndrome started more than a year ago. Pt does not know why but symptoms tend to start while she is knitting and reading. She also c/o ongoing R shoulder pain but it does not bother her functional mobility at this point. She decribes it as numbness and tingling sensation at 2nd-4th finger tips and bilateral wrists. symptoms usually get worse with knitting or holding her book for more than 10-15 mins that she has to stop and rest in order to relieve her symptoms. She also stated placing her fingers into extension also relieve her symptoms. In addition, she is now having difficulty in sleeping too with intermittent tingling and numbness sensation. Pt did not have physical therapy before. Prior Treatments and Tests pt did not have any diagnostic imaging done. Future Testing and Treatments Planned Pt is going to have PT evaluation for her LBP and L knee pain next week Treatment Goals Patient/Caregiver Goals 1. able to knit as long as she can without pain 2. able to read more than an hour without symptoms 3. to improve overall shoulder strength Prior Functional Status Baseline Function- ADL's Independent Baseline Function- Mobility Independent Baseline Function- Recreation/Hobbies Pt was able to knit and read for more than an hour Current Functional Impairments (Reported) Functional Limitations- Recreation/ unable to knit and read for Hobbies more than 10 mins PT-OP-C Subjective Start: 09/01/18 14:45 Freq: Status: Active Protocol: Document 09/12/18 13:37 EA (Rec: 09/12/18 13:43 EA [id number]) OP-PT Subjective Patient Comments Patient Comments Pt reports currently has no pain complaint; states back pain and stiffness happens early in the morning; and hand numbness is less frequent and mostly while doing knitting. Pt would like to know other exercises to prevent symptoms recurrence. Patient Reported Progress Improving PT-OP-F Manual Assessment Start: 09/01/18 14:45 Freq: Status: Active Protocol: Document 09/08/18 11:15 HH (Rec: 09/08/18 12:38 HH [email or web address]) Manual Assessments Soft Tissue Assessment Soft Tissue Mobility Assessment Significant tenderness to pressure on R paraspinals, R proximal glute max and medius, and piriformis PT-OP-G Mobility & Gait Start: 09/01/18 14:45 Freq: Status: Active Protocol: Document 09/08/18 11:15 HH (Rec: 09/08/18 12:38 HH [email or web address]) OP Gait Assessment Gait Gait Assistance Required: Independent Assistive Devices Assistive Device None Gait Deviations General Gait Pattern Antalgic Decreased Stride Length Decreased Feet Clearance Flexed Trunk Factors Limiting Gait Function Factors Limiting Gait Function Decreased Strength Limited Range of Motion Comments Gait Comments decreased time spent on LLE mid stance and early heel raise. flexed trunk during gait PT-OP-J Posture/Palpation/Skin Start: 09/01/18 14:45 Freq: Status: Active Protocol: Document 09/01/18 13:45 HH (Rec: 09/01/18 15:15 HH [email or web address]) Posture Evaluation Position Standing Evaluation View Lateral Head/C-Spine Posture Forward Head T-Spine Posture Increased Kyphosis L-Spine Posture Flexed Pelvis Posture Anteriorly Tilted PT-OP-K Range of Motion Start: 09/01/18 14:45 Freq: Status: Active Protocol: Document 09/08/18 11:15 HH (Rec: 09/08/18 12:38 HH [email or web address]) Lumbar Spine Range of Motion Lumbar Spine Active Percentage Testing Position Standing Flexion 70 Extension 0 Rotation Left 60 Rotation Right 60 Lateral Flexion Left 50 Lateral Flexion Right 50 Comments pain during lateral flexion and extension Hip Goniometric Range of Motion Hip Left Active Hip ROM WFL No Flexion w/Knee Flexed 120 Straight Leg Raise 90 Extension 0 Abduction 12 Right Active Hip ROM WFL No Flexion w/Knee Flexed 120 Straight Leg Raise 80 Extension 0 Abduction 10 PT-OP-L Special Tests Start: 09/01/18 14:45 Freq: Status: Active Protocol: Document 09/08/18 11:15 HH (Rec: 09/08/18 12:38 HH [email or web address]) Special Tests Lumbar Spine Special Tests facet syndrome Test Results +ve Comments R > L Hip Special Tests Scour Test Test Results +ve Comments pain at R hip joint CYNDI Test Results +Ve Comments on R pain at posterior hip PT-OP-M Strength Start: 09/01/18 14:45 Freq: Status: Active Protocol: Document 09/08/18 11:15 HH (Rec: 09/08/18 12:38 HH [email or web address]) Trunk Strength Trunk Manual Muscle Testing Testing Position Sitting Flexion 3+ Fair+ Extension 3+ Fair+ Rotation Left 3+ Fair+ Rotation Right 3+ Fair+ Lateral Flexion Left 3+ Fair+ Lateral Flexion Right 3+ Fair+ PT-OP-Q Treatments Start: 09/01/18 14:45 Freq: Status: Active Protocol: Document 09/12/18 13:37 EA (Rec: 09/12/18 13:43 EA [id number]) Therapeutic Exercises Supine Exercises 1 Supine Exercise Name Bridging Reps/Minutes x 10 reps supine sciatic nerve glide Supine Exercise Name hip 90 degrees with ankle DF and PF Side right Reps/Minutes 4 mins chin tuck Side bilateral Reps/Minutes 2 mins Comments cues on alignment and push against pillow Sidelying Exercises hip flexor stretch Side right Reps/Minutes 4 mins Sitting Exercises scap retraction and protraction Side bilateral Reps/Minutes 10 x2 Standing Exercises 2 Standing Exercise Name Wall posture Reps/Minutes x 5 mins 1 Standing Exercise Name Pectoral and antrior shoulder capsule stretch Scapular rows Side bilateral Resistance TB LV 1 Reps/Minutes 15x Self-Care/Home Management Treatment Education Patient Education Home Exercise Program Posture PT-OP-T Assessment and Plan Start: 09/01/18 14:45 Freq: Status: Active Protocol: Document 09/12/18 13:37 EA (Rec: 09/12/18 13:43 EA [id number]) Physical Therapy Assessment Assessment Summary Assessment Pt tolerated treatment exercises well; patient understands HEP given with handouts and agreeable to comply with it. Physical Therapy Plan Next Visit Focus/Plan Next Note Type Treatment Note Next Visit Plan Follow up with HEP performance reading and sleeping position education test bottom cementer strength thoracic mobility training, nerve glide as danay hip flexor stretch postural education gait training as danay
--- NOTE | 2018-09-14 12:45 | PT.OTN ---
Current Diagnoses Unilateral primary osteoarthritis, unspecified hip (09/14/18) Spondylosis without myelopathy or radiculopathy, site unspecified (09/14/18) Physical Therapy Treatment Note PT-OP-A Visit Information Start: 09/01/18 14:45 Freq: Status: Active Protocol: Document 09/14/18 12:00 DCW (Rec: 09/14/18 12:44 DCW [id number]) Out-Patient Physical Therapy Visit Information Visit Information Visit Type Treatment Note Visit Start Time 12:00 Visit Stop Time 12:45 Total Visit Minutes 45 Visit Number 5 Number of CINDER SNAPPER Visits 0 Evaluation Information Evaluation Date 09/01/18 PT-OP-B Current Condition Start: 09/01/18 14:45 Freq: Status: Active Protocol: Document 09/01/18 13:45 HH (Rec: 09/01/18 15:15 HH [email or web address]) Current Condition History of Current Condition Onset Date >1 year ago Current Complaints B carpel tunnel syndrome, difficulty in readying and knitting History of Current Condition pt presents to clinic today with primary c/o of B carpel tunnel syndrome started more than a year ago. Pt does not know why but symptoms tend to start while she is knitting and reading. She also c/o ongoing R shoulder pain but it does not bother her functional mobility at this point. She decribes it as numbness and tingling sensation at 2nd-4th finger tips and bilateral wrists. symptoms usually get worse with knitting or holding her book for more than 10-15 mins that she has to stop and rest in order to relieve her symptoms. She also stated placing her fingers into extension also relieve her symptoms. In addition, she is now having difficulty in sleeping too with intermittent tingling and numbness sensation. Pt did not have physical therapy before. Prior Treatments and Tests pt did not have any diagnostic imaging done. Future Testing and Treatments Planned Pt is going to have PT evaluation for her LBP and L knee pain next week Treatment Goals Patient/Caregiver Goals 1. able to knit as long as she can without pain 2. able to read more than an hour without symptoms 3. to improve overall shoulder strength Prior Functional Status Baseline Function- ADL's Independent Baseline Function- Mobility Independent Baseline Function- Recreation/Hobbies Pt was able to knit and read for more than an hour Current Functional Impairments (Reported) Functional Limitations- Recreation/ unable to knit and read for Hobbies more than 10 mins PT-OP-C Subjective Start: 09/01/18 14:45 Freq: Status: Active Protocol: Document 09/14/18 12:00 DCW (Rec: 09/14/18 12:44 DCW [id number]) OP-PT Subjective Patient Comments Patient Comments Better in some ways and in other ways...achy. Notes her neck has been a little more stressed. PT-OP-F Manual Assessment Start: 09/01/18 14:45 Freq: Status: Active Protocol: Document 09/08/18 11:15 HH (Rec: 09/08/18 12:38 HH [email or web address]) Manual Assessments Soft Tissue Assessment Soft Tissue Mobility Assessment Significant tenderness to pressure on R paraspinals, R proximal glute max and medius, and piriformis PT-OP-G Mobility & Gait Start: 09/01/18 14:45 Freq: Status: Active Protocol: Document 09/08/18 11:15 HH (Rec: 09/08/18 12:38 HH [email or web address]) OP Gait Assessment Gait Gait Assistance Required: Independent Assistive Devices Assistive Device None Gait Deviations General Gait Pattern Antalgic Decreased Stride Length Decreased Feet Clearance Flexed Trunk Factors Limiting Gait Function Factors Limiting Gait Function Decreased Strength Limited Range of Motion Comments Gait Comments decreased time spent on LLE mid stance and early heel raise. flexed trunk during gait PT-OP-J Posture/Palpation/Skin Start: 09/01/18 14:45 Freq: Status: Active Protocol: Document 09/01/18 13:45 HH (Rec: 09/01/18 15:15 HH [email or web address]) Posture Evaluation Position Standing Evaluation View Lateral Head/C-Spine Posture Forward Head T-Spine Posture Increased Kyphosis L-Spine Posture Flexed Pelvis Posture Anteriorly Tilted PT-OP-K Range of Motion Start: 09/01/18 14:45 Freq: Status: Active Protocol: Document 09/08/18 11:15 HH (Rec: 09/08/18 12:38 HH [email or web address]) Lumbar Spine Range of Motion Lumbar Spine Active Percentage Testing Position Standing Flexion 70 Extension 0 Rotation Left 60 Rotation Right 60 Lateral Flexion Left 50 Lateral Flexion Right 50 Comments pain during lateral flexion and extension Hip Goniometric Range of Motion Hip Left Active Hip ROM WFL No Flexion w/Knee Flexed 120 Straight Leg Raise 90 Extension 0 Abduction 12 Right Active Hip ROM WFL No Flexion w/Knee Flexed 120 Straight Leg Raise 80 Extension 0 Abduction 10 PT-OP-L Special Tests Start: 09/01/18 14:45 Freq: Status: Active Protocol: Document 09/08/18 11:15 HH (Rec: 09/08/18 12:38 HH [email or web address]) Special Tests Lumbar Spine Special Tests facet syndrome Test Results +ve Comments R > L Hip Special Tests Scour Test Test Results +ve Comments pain at R hip joint CYNDI Test Results +Ve Comments on R pain at posterior hip PT-OP-M Strength Start: 09/01/18 14:45 Freq: Status: Active Protocol: Document 09/08/18 11:15 HH (Rec: 09/08/18 12:38 HH [email or web address]) Trunk Strength Trunk Manual Muscle Testing Testing Position Sitting Flexion 3+ Fair+ Extension 3+ Fair+ Rotation Left 3+ Fair+ Rotation Right 3+ Fair+ Lateral Flexion Left 3+ Fair+ Lateral Flexion Right 3+ Fair+ PT-OP-Q Treatments Start: 09/01/18 14:45 Freq: Status: Active Protocol: Document 09/14/18 12:00 DCW (Rec: 09/14/18 12:44 DCW [id number]) Therapeutic Exercises Sitting Exercises scap retraction and protraction Side bilateral Reps/Minutes 10 x2 UT/Scalenes stretch Side bilateral Reps/Minutes 30 x 4 each Comments correction on HEP to use chair edge for support Gait Training Gait Activity SPC use Description Cane in L hand to limit force through R arm Manual Therapy Treatment Soft Tissue Mobilization Sub-occipital, B UTs and scalenes Mobilization Type Myofascial Release Rolling Trigger Point Release Intensity/Depth Moderate Body Position Hooklying Manual Traction Cervical Body Position Supine Reps/Duration 10 mins Manual Techniques PROM to c-spine Body Location c-spine Body Position Hooklying Comments B rotation, side bend and ext with gentle end range stretch. PT-OP-T Assessment and Plan Start: 09/01/18 14:45 Freq: Status: Active Protocol: Document 09/14/18 12:00 DCW (Rec: 09/14/18 12:44 DCW [id number]) Physical Therapy Assessment Impairments Impairments Activity Tolerance Functional Activities Functional Mobility Pain Posture ROM Soft Tissue Mobility Strength Goals quick dash Impairment pt scores 36 (20-39 % impairment) Director Software Development Goal (LTG) Pt will score 1-19 pts on quickdash to improve her functional neck and shoulder mobility. LTG Duration 10 weeks HEP Impairment pt does not have a HEP Director Software Development Goal (LTG) Pt will be able to follow HEP independently with proper and safe body mechanics LTG Duration 6 weeks neurological symptoms Impairment intermittent tingling and numbness sensation on both hands [facility] Goal (LTG) Pt will not experience tingling/numbness sensation on both hands during knitting/ book reading for more than 30 mins. LTG Duration 10 weeks strength Impairment Slight decreased b shoulder strength [facility] Goal (LTG) Pt will be able to increase 1 MMT grade of B shoulder strength to improver her overhead mobility LTG Duration 10 weeks Assessment Summary Assessment Pt receptive to changes in HEP and SPC use, she optimistic that she will continue to improve. Physical Therapy Plan Frequency and Duration Frequency of Treatment 2x/Week Duration of Treatment 10 weeks Plan of Care Start Date 09/01/18 Plan of Care End Date 11/19/18 Therapeutic Interventions Therapeutic Interventions Home Exercise Program Joint Mobilizations Manual Therapy Neuromuscular Re-education Patient/Caregiver Education Self-Care/Home Management Soft Tissue Mobilization Taping Therapeutic Activities Therapeutic Exercises Modalities Cold Pack/Ice Massage Electric Stimulation Hot Packs Infrared Therapy Traction- Mechanical Ultrasound Next Visit Focus/Plan Next Note Type Treatment Note Next Visit Plan Follow-up with gait SPC recommendations, assess if changes in HEP have decreased neck pain.
--- NOTE | 2018-09-20 15:34 | PT.OTN ---
Current Diagnoses Unilateral primary osteoarthritis, unspecified hip (09/20/18) Spondylosis without myelopathy or radiculopathy, site unspecified (09/20/18) Physical Therapy Treatment Note PT-OP-A Visit Information Start: 09/01/18 14:45 Freq: Status: Active Protocol: Document 09/20/18 13:00 GGD (Rec: 09/20/18 15:34 GGD [email or web address]) Out-Patient Physical Therapy Visit Information Visit Information Visit Type Treatment Note Visit Start Time 13:00 Visit Stop Time 13:45 Total Visit Minutes 45 Visit Number 6 Number of PUNCHING MACHINE OPERATOR Visits 1 Evaluation Information Evaluation Date 09/01/18 PT-OP-B Current Condition Start: 09/01/18 14:45 Freq: Status: Active Protocol: Document 09/01/18 13:45 HH (Rec: 09/01/18 15:15 HH [email or web address]) Current Condition History of Current Condition Onset Date >1 year ago Current Complaints B carpel tunnel syndrome, difficulty in readying and knitting History of Current Condition pt presents to clinic today with primary c/o of B carpel tunnel syndrome started more than a year ago. Pt does not know why but symptoms tend to start while she is knitting and reading. She also c/o ongoing R shoulder pain but it does not bother her functional mobility at this point. She decribes it as numbness and tingling sensation at 2nd-4th finger tips and bilateral wrists. symptoms usually get worse with knitting or holding her book for more than 10-15 mins that she has to stop and rest in order to relieve her symptoms. She also stated placing her fingers into extension also relieve her symptoms. In addition, she is now having difficulty in sleeping too with intermittent tingling and numbness sensation. Pt did not have physical therapy before. Prior Treatments and Tests pt did not have any diagnostic imaging done. Future Testing and Treatments Planned Pt is going to have PT evaluation for her LBP and L knee pain next week Treatment Goals Patient/Caregiver Goals 1. able to knit as long as she can without pain 2. able to read more than an hour without symptoms 3. to improve overall shoulder strength Prior Functional Status Baseline Function- ADL's Independent Baseline Function- Mobility Independent Baseline Function- Recreation/Hobbies Pt was able to knit and read for more than an hour Current Functional Impairments (Reported) Functional Limitations- Recreation/ unable to knit and read for Hobbies more than 10 mins PT-OP-C Subjective Start: 09/01/18 14:45 Freq: Status: Active Protocol: Document 09/20/18 13:00 GGD (Rec: 09/20/18 15:34 GGD [email or web address]) OP-PT Subjective Patient Comments Patient Comments Pt states florentin her neck is doing better and she has questions on HEP. PT-OP-F Manual Assessment Start: 09/01/18 14:45 Freq: Status: Active Protocol: Document 09/08/18 11:15 HH (Rec: 09/08/18 12:38 HH [email or web address]) Manual Assessments Soft Tissue Assessment Soft Tissue Mobility Assessment Significant tenderness to pressure on R paraspinals, R proximal glute max and medius, and piriformis PT-OP-G Mobility & Gait Start: 09/01/18 14:45 Freq: Status: Active Protocol: Document 09/08/18 11:15 HH (Rec: 09/08/18 12:38 HH [email or web address]) OP Gait Assessment Gait Gait Assistance Required: Independent Assistive Devices Assistive Device None Gait Deviations General Gait Pattern Antalgic Decreased Stride Length Decreased Feet Clearance Flexed Trunk Factors Limiting Gait Function Factors Limiting Gait Function Decreased Strength Limited Range of Motion Comments Gait Comments decreased time spent on LLE mid stance and early heel raise. flexed trunk during gait PT-OP-J Posture/Palpation/Skin Start: 09/01/18 14:45 Freq: Status: Active Protocol: Document 09/01/18 13:45 HH (Rec: 09/01/18 15:15 HH [email or web address]) Posture Evaluation Position Standing Evaluation View Lateral Head/C-Spine Posture Forward Head T-Spine Posture Increased Kyphosis L-Spine Posture Flexed Pelvis Posture Anteriorly Tilted PT-OP-K Range of Motion Start: 09/01/18 14:45 Freq: Status: Active Protocol: Document 09/08/18 11:15 HH (Rec: 09/08/18 12:38 HH [email or web address]) Lumbar Spine Range of Motion Lumbar Spine Active Percentage Testing Position Standing Flexion 70 Extension 0 Rotation Left 60 Rotation Right 60 Lateral Flexion Left 50 Lateral Flexion Right 50 Comments pain during lateral flexion and extension Hip Goniometric Range of Motion Hip Left Active Hip ROM WFL No Flexion w/Knee Flexed 120 Straight Leg Raise 90 Extension 0 Abduction 12 Right Active Hip ROM WFL No Flexion w/Knee Flexed 120 Straight Leg Raise 80 Extension 0 Abduction 10 PT-OP-L Special Tests Start: 09/01/18 14:45 Freq: Status: Active Protocol: Document 09/08/18 11:15 HH (Rec: 09/08/18 12:38 HH [email or web address]) Special Tests Lumbar Spine Special Tests facet syndrome Test Results +ve Comments R > L Hip Special Tests Scour Test Test Results +ve Comments pain at R hip joint CYNDI Test Results +Ve Comments on R pain at posterior hip PT-OP-M Strength Start: 09/01/18 14:45 Freq: Status: Active Protocol: Document 09/08/18 11:15 HH (Rec: 09/08/18 12:38 HH [email or web address]) Trunk Strength Trunk Manual Muscle Testing Testing Position Sitting Flexion 3+ Fair+ Extension 3+ Fair+ Rotation Left 3+ Fair+ Rotation Right 3+ Fair+ Lateral Flexion Left 3+ Fair+ Lateral Flexion Right 3+ Fair+ PT-OP-Q Treatments Start: 09/01/18 14:45 Freq: Status: Active Protocol: Document 09/20/18 13:00 GGD (Rec: 09/20/18 15:34 GGD [email or web address]) Therapeutic Exercises Supine Exercises hip abd Supine Exercise Name hip abd/ER Side bilateral Resistance Level 2 Reps/Minutes 20 1 Supine Exercise Name Bridging Reps/Minutes x 10 reps supine sciatic nerve glide Supine Exercise Name hip 90 degrees with ankle DF and PF Side right Reps/Minutes 4 mins chin tuck Side bilateral Reps/Minutes 2 mins Comments cues on alignment and push against pillow Sitting Exercises scap retraction and protraction Side bilateral Reps/Minutes 10 x2 UT/Scalenes stretch Side bilateral Reps/Minutes 30 x 4 each Comments correction on HEP to use chair edge for support Manual Therapy Treatment Soft Tissue Mobilization Sub-occipital, B UTs and scalenes Mobilization Type Myofascial Release Rolling Trigger Point Release Intensity/Depth Moderate Body Position Hooklying Manual Traction Cervical Body Position Supine Reps/Duration 10 mins Manual Techniques PROM to c-spine Body Location c-spine Body Position Hooklying Comments B rotation, side bend and ext with gentle end range stretch. PT-OP-T Assessment and Plan Start: 09/01/18 14:45 Freq: Status: Active Protocol: Document 09/20/18 13:00 GGD (Rec: 09/20/18 15:34 [email or web address]) Physical Therapy Assessment Assessment Summary Assessment Pt needed modification of hip stretches do limit knee and shoulder pain. She did have decrease pain with treatment. Physical Therapy Plan Frequency and Duration Frequency of Treatment 2x/Week Duration of Treatment 10 weeks Plan of Care Start Date 09/01/18 Plan of Care End Date 11/19/18 Next Visit Focus/Plan Next Note Type Treatment Note Next Visit Plan HEP and progress strengthening .
--- NOTE | 2018-09-25 12:21 | PT.OTN ---
Current Diagnoses Unilateral primary osteoarthritis, unspecified hip (09/25/18) Spondylosis without myelopathy or radiculopathy, site unspecified (09/25/18) Physical Therapy Treatment Note PT-OP-A Visit Information Start: 09/01/18 14:45 Freq: Status: Active Protocol: Document 09/25/18 11:21 LRN (Rec: 09/25/18 12:21 LRN [id number]) Out-Patient Physical Therapy Visit Information Visit Information Visit Type Treatment Note Visit Start Time 11:21 Visit Stop Time 12:13 Total Visit Minutes 52 Visit Number 7 Number of PAINT COATING MACHINE OPERATOR Visits 0 Evaluation Information Evaluation Date 09/01/18 PT-OP-B Current Condition Start: 09/01/18 14:45 Freq: Status: Active Protocol: Document 09/01/18 13:45 HH (Rec: 09/01/18 15:15 HH [email or web address]) Current Condition History of Current Condition Onset Date >1 year ago Current Complaints B carpel tunnel syndrome, difficulty in readying and knitting History of Current Condition pt presents to clinic today with primary c/o of B carpel tunnel syndrome started more than a year ago. Pt does not know why but symptoms tend to start while she is knitting and reading. She also c/o ongoing R shoulder pain but it does not bother her functional mobility at this point. She decribes it as numbness and tingling sensation at 2nd-4th finger tips and bilateral wrists. symptoms usually get worse with knitting or holding her book for more than 10-15 mins that she has to stop and rest in order to relieve her symptoms. She also stated placing her fingers into extension also relieve her symptoms. In addition, she is now having difficulty in sleeping too with intermittent tingling and numbness sensation. Pt did not have physical therapy before. Prior Treatments and Tests pt did not have any diagnostic imaging done. Future Testing and Treatments Planned Pt is going to have PT evaluation for her LBP and L knee pain next week Treatment Goals Patient/Caregiver Goals 1. able to knit as long as she can without pain 2. able to read more than an hour without symptoms 3. to improve overall shoulder strength Prior Functional Status Baseline Function- ADL's Independent Baseline Function- Mobility Independent Baseline Function- Recreation/Hobbies Pt was able to knit and read for more than an hour Current Functional Impairments (Reported) Functional Limitations- Recreation/ unable to knit and read for Hobbies more than 10 mins PT-OP-C Subjective Start: 09/01/18 14:45 Freq: Status: Active Protocol: Document 09/25/18 11:21 LRN (Rec: 09/25/18 12:21 LRN [id number]) OP-PT Subjective Patient Comments Patient Comments L knee feels better since eliminating some leg ex's since last session. L wrist sometimes painful and no pain on R wrist, intermittent pain. LB & R hip pain is intermittent. Stretches seem to help it. PT-OP-F Manual Assessment Start: 09/01/18 14:45 Freq: Status: Active Protocol: Document 09/08/18 11:15 HH (Rec: 09/08/18 12:38 HH [email or web address]) Manual Assessments Soft Tissue Assessment Soft Tissue Mobility Assessment Significant tenderness to pressure on R paraspinals, R proximal glute max and medius, and piriformis PT-OP-G Mobility & Gait Start: 09/01/18 14:45 Freq: Status: Active Protocol: Document 09/08/18 11:15 HH (Rec: 09/08/18 12:38 [email or web address]) OP Gait Assessment Gait Gait Assistance Required: Independent Assistive Devices Assistive Device None Gait Deviations General Gait Pattern Antalgic Decreased Stride Length Decreased Feet Clearance Flexed Trunk Factors Limiting Gait Function Factors Limiting Gait Function Decreased Strength Limited Range of Motion Comments Gait Comments decreased time spent on LLE mid stance and early heel raise. flexed trunk during gait PT-OP-J Posture/Palpation/Skin Start: 09/01/18 14:45 Freq: Status: Active Protocol: Document 09/01/18 13:45 HH (Rec: 09/01/18 15:15 HH [email or web address]) Posture Evaluation Position Standing Evaluation View Lateral Head/C-Spine Posture Forward Head T-Spine Posture Increased Kyphosis L-Spine Posture Flexed Pelvis Posture Anteriorly Tilted PT-OP-K Range of Motion Start: 09/01/18 14:45 Freq: Status: Active Protocol: Document 09/08/18 11:15 HH (Rec: 09/08/18 12:38 HH [email or web address]) Lumbar Spine Range of Motion Lumbar Spine Active Percentage Testing Position Standing Flexion 70 Extension 0 Rotation Left 60 Rotation Right 60 Lateral Flexion Left 50 Lateral Flexion Right 50 Comments pain during lateral flexion and extension Hip Goniometric Range of Motion Hip Left Active Hip ROM WFL No Flexion w/Knee Flexed 120 Straight Leg Raise 90 Extension 0 Abduction 12 Right Active Hip ROM WFL No Flexion w/Knee Flexed 120 Straight Leg Raise 80 Extension 0 Abduction 10 PT-OP-L Special Tests Start: 09/01/18 14:45 Freq: Status: Active Protocol: Document 09/08/18 11:15 HH (Rec: 09/08/18 12:38 HH [email or web address]) Special Tests Lumbar Spine Special Tests facet syndrome Test Results +ve Comments R > L Hip Special Tests Scour Test Test Results +ve Comments pain at R hip joint CYNDI Test Results +Ve Comments on R pain at posterior hip PT-OP-M Strength Start: 09/01/18 14:45 Freq: Status: Active Protocol: Document 09/08/18 11:15 HH (Rec: 09/08/18 12:38 HH [email or web address]) Trunk Strength Trunk Manual Muscle Testing Testing Position Sitting Flexion 3+ Fair+ Extension 3+ Fair+ Rotation Left 3+ Fair+ Rotation Right 3+ Fair+ Lateral Flexion Left 3+ Fair+ Lateral Flexion Right 3+ Fair+ PT-OP-Q Treatments Start: 09/01/18 14:45 Freq: Status: Active Protocol: Document 09/25/18 11:21 LRN (Rec: 09/25/18 12:21 LRN [id number]) Therapeutic Exercises Supine Exercises Neck Elongtion Supine Exercise Name Deep C. Neck Flexor strengthening. Reps/Minutes 10x Comments Extra time taken for training. hip abd Supine Exercise Name Hip AB & BKFO Side bilateral Resistance Level 2 Reps/Minutes 20 1 Supine Exercise Name Bridging Reps/Minutes 10 reps x 3 supine sciatic nerve glide Supine Exercise Name hip 90 degrees with ankle DF and PF Side right Reps/Minutes 2 Sitting Exercises table slides Side bilateral Reps/Minutes 10 x each Comments forward and diagonal direction UT/Scalenes stretch Side bilateral Reps/Minutes 10 x 6 each Comments correction on HEP to use chair edge for support Standing Exercises Scapular rows Side bilateral Resistance TB LV 2 Reps/Minutes 15x Manual Therapy Treatment Soft Tissue Mobilization Sub-occipital, B UTs and scalenes Body Location L UT, scalenes Mobilization Type Myofascial Release Rolling Sustained Pressure Trigger Point Release Intensity/Depth Moderate Body Position Hooklying Manual Traction Cervical Details Gentle manual traction Body Position Supine Reps/Duration 8 mins Self-Care/Home Management Treatment Education Patient Education Home Exercise Program Posture Other Education Pt education in proper side sleeping posturing with proper pillow height and recommendations to maintain proper posture during sleeping . Activities Self-Care/Home Management Activities Issued & reviewed HEP: Supine: Hip AB & BKFO ex. Issued Lev 2 T-Band. I/S pt to progress to 3 sets of 10 reps with exercises. PT-OP-T Assessment and Plan Start: 09/01/18 14:45 Freq: Status: Active Protocol: Document 09/25/18 11:21 LRN (Rec: 09/25/18 12:21 LRN [id number]) Physical Therapy Assessment Assessment Summary Assessment Pt tends to be aggressive with ex's. Hamstring length is good on the right. Good understanding of proper nighttime positioning of head on shoulders and proper understanding of new exs. Physical Therapy Plan Frequency and Duration Frequency of Treatment 2x/Week Duration of Treatment 10 weeks Plan of Care Start Date 09/01/18 Plan of Care End Date 11/19/18 Next Visit Focus/Plan Next Note Type Treatment Note Next Visit Plan HEP progression follow up Progress strengthening (hip & UE) Test Transit Survey Worker strength Thoracic mobility training. Hip flexor stretch.
--- NOTE | 2018-09-29 16:02 | PT.OTN ---
Current Diagnoses Unilateral primary osteoarthritis, unspecified hip (09/29/18) Spondylosis without myelopathy or radiculopathy, site unspecified (09/29/18) Physical Therapy Treatment Note PT-OP-A Visit Information Start: 09/01/18 14:45 Freq: Status: Active Protocol: Document 09/29/18 15:50 SA (Rec: 09/29/18 16:02 SA [email or web address]) Out-Patient Physical Therapy Visit Information Visit Information Visit Type Treatment Note Visit Start Time 13:45 Visit Stop Time 14:30 Visit Number 8 Number of ACCOUNTING ADMINISTRATOR Visits 1 PT-OP-B Current Condition Start: 09/01/18 14:45 Freq: Status: Active Protocol: Document 09/01/18 13:45 HH (Rec: 09/01/18 15:15 HH [email or web address]) Current Condition History of Current Condition Onset Date >1 year ago Current Complaints B carpel tunnel syndrome, difficulty in readying and knitting History of Current Condition pt presents to clinic today with primary c/o of B carpel tunnel syndrome started more than a year ago. Pt does not know why but symptoms tend to start while she is knitting and reading. She also c/o ongoing R shoulder pain but it does not bother her functional mobility at this point. She decribes it as numbness and tingling sensation at 2nd-4th finger tips and bilateral wrists. symptoms usually get worse with knitting or holding her book for more than 10-15 mins that she has to stop and rest in order to relieve her symptoms. She also stated placing her fingers into extension also relieve her symptoms. In addition, she is now having difficulty in sleeping too with intermittent tingling and numbness sensation. Pt did not have physical therapy before. Prior Treatments and Tests pt did not have any diagnostic imaging done. Future Testing and Treatments Planned Pt is going to have PT evaluation for her LBP and L knee pain next week Treatment Goals Patient/Caregiver Goals 1. able to knit as long as she can without pain 2. able to read more than an hour without symptoms 3. to improve overall shoulder strength Prior Functional Status Baseline Function- ADL's Independent Baseline Function- Mobility Independent Baseline Function- Recreation/Hobbies Pt was able to knit and read for more than an hour Current Functional Impairments (Reported) Functional Limitations- Recreation/ unable to knit and read for Hobbies more than 10 mins PT-OP-C Subjective Start: 09/01/18 14:45 Freq: Status: Active Protocol: Document 09/29/18 15:50 SA (Rec: 09/29/18 16:02 SA [email or web address]) OP-PT Subjective Patient Comments Patient Comments Pt reports doing HEP and feeling pretty good today. PT-OP-F Manual Assessment Start: 09/01/18 14:45 Freq: Status: Active Protocol: Document 09/08/18 11:15 HH (Rec: 09/08/18 12:38 HH [email or web address]) Manual Assessments Soft Tissue Assessment Soft Tissue Mobility Assessment Significant tenderness to pressure on R paraspinals, R proximal glute max and medius, and piriformis PT-OP-G Mobility & Gait Start: 09/01/18 14:45 Freq: Status: Active Protocol: Document 09/08/18 11:15 HH (Rec: 09/08/18 12:38 HH [email or web address]) OP Gait Assessment Gait Gait Assistance Required: Independent Assistive Devices Assistive Device None Gait Deviations General Gait Pattern Antalgic Decreased Stride Length Decreased Feet Clearance Flexed Trunk Factors Limiting Gait Function Factors Limiting Gait Function Decreased Strength Limited Range of Motion Comments Gait Comments decreased time spent on LLE mid stance and early heel raise. flexed trunk during gait PT-OP-J Posture/Palpation/Skin Start: 09/01/18 14:45 Freq: Status: Active Protocol: Document 09/01/18 13:45 HH (Rec: 09/01/18 15:15 HH [email or web address]) Posture Evaluation Position Standing Evaluation View Lateral Head/C-Spine Posture Forward Head T-Spine Posture Increased Kyphosis L-Spine Posture Flexed Pelvis Posture Anteriorly Tilted PT-OP-K Range of Motion Start: 09/01/18 14:45 Freq: Status: Active Protocol: Document 09/08/18 11:15 HH (Rec: 09/08/18 12:38 HH [email or web address]) Lumbar Spine Range of Motion Lumbar Spine Active Percentage Testing Position Standing Flexion 70 Extension 0 Rotation Left 60 Rotation Right 60 Lateral Flexion Left 50 Lateral Flexion Right 50 Comments pain during lateral flexion and extension Hip Goniometric Range of Motion Hip Left Active Hip ROM WFL No Flexion w/Knee Flexed 120 Straight Leg Raise 90 Extension 0 Abduction 12 Right Active Hip ROM WFL No Flexion w/Knee Flexed 120 Straight Leg Raise 80 Extension 0 Abduction 10 PT-OP-L Special Tests Start: 09/01/18 14:45 Freq: Status: Active Protocol: Document 09/08/18 11:15 HH (Rec: 09/08/18 12:38 HH [email or web address]) Special Tests Lumbar Spine Special Tests facet syndrome Test Results +ve Comments R > L Hip Special Tests Scour Test Test Results +ve Comments pain at R hip joint CYNDI Test Results +Ve Comments on R pain at posterior hip PT-OP-M Strength Start: 09/01/18 14:45 Freq: Status: Active Protocol: Document 09/08/18 11:15 HH (Rec: 09/08/18 12:38 HH [email or web address]) Trunk Strength Trunk Manual Muscle Testing Testing Position Sitting Flexion 3+ Fair+ Extension 3+ Fair+ Rotation Left 3+ Fair+ Rotation Right 3+ Fair+ Lateral Flexion Left 3+ Fair+ Lateral Flexion Right 3+ Fair+ PT-OP-Q Treatments Start: 09/01/18 14:45 Freq: Status: Active Protocol: Document 09/29/18 15:50 SA (Rec: 09/29/18 16:02 SA [email or web address]) Therapeutic Exercises Supine Exercises Neck Elongtion Supine Exercise Name Deep C. Neck Flexor strengthening. Reps/Minutes 10x Comments Extra time taken for training. hip abd Supine Exercise Name Hip AB & BKFO Side bilateral Resistance Level 2 Reps/Minutes 20 1 Supine Exercise Name Bridging Reps/Minutes 10 reps x 3 supine sciatic nerve glide Supine Exercise Name hip 90 degrees with ankle DF and PF Side right Reps/Minutes 2 chin tuck Side bilateral Reps/Minutes 2 mins Comments cues on alignment and push against pillow Sitting Exercises scap retraction and protraction Side bilateral Reps/Minutes 10 x2 Standing Exercises 2 Standing Exercise Name Wall posture Reps/Minutes x 5 mins Scapular rows Side bilateral Resistance TB LV 2 Reps/Minutes 15x Manual Therapy Treatment Soft Tissue Mobilization Sub-occipital, B UTs and scalenes Body Location B UT, scalenes Mobilization Type Myofascial Release Rolling Sustained Pressure Trigger Point Release Intensity/Depth Moderate Body Position Hooklying Manual Techniques PROM to c-spine Body Location c-spine Body Position Hooklying Comments B rotation, side bend and ext with gentle end range stretch. PT-OP-T Assessment and Plan Start: 09/01/18 14:45 Freq: Status: Active Protocol: Document 09/29/18 15:50 SA (Rec: 07/12/19 16:02 SA [email or web address]) Physical Therapy Assessment Assessment Summary Assessment Pt progressing with decreased hip/LB pain. Upper back and c- spine still painful at times, tolerated ther ex well today. Physical Therapy Plan Next Visit Focus/Plan Next Note Type Treatment Note Next Visit Plan HEP progression follow up Progress strengthening (hip & UE) Test Can Washer strength Thoracic mobility training. Hip flexor stretch.
--- NOTE | 2018-10-02 12:44 | PT.OTN ---
Current Diagnoses Unilateral primary osteoarthritis, unspecified hip (10/02/18) Spondylosis without myelopathy or radiculopathy, site unspecified (10/02/18) Physical Therapy Treatment Note PT-OP-A Visit Information Start: 09/01/18 14:45 Freq: Status: Active Protocol: Document 10/02/18 12:05 DCW (Rec: 10/02/18 12:44 DCW [id number]) Out-Patient Physical Therapy Visit Information Visit Information Visit Type Treatment Note Visit Start Time 12:05 Visit Stop Time 12:45 Total Visit Minutes 40 Visit Number 9 Number of KEG HEADER Visits 0 Evaluation Information Evaluation Date 09/01/18 PT-OP-B Current Condition Start: 09/01/18 14:45 Freq: Status: Active Protocol: Document 09/01/18 13:45 HH (Rec: 09/01/18 15:15 HH [email or web address]) Current Condition History of Current Condition Onset Date >1 year ago Current Complaints B carpel tunnel syndrome, difficulty in readying and knitting History of Current Condition pt presents to clinic today with primary c/o of B carpel tunnel syndrome started more than a year ago. Pt does not know why but symptoms tend to start while she is knitting and reading. She also c/o ongoing R shoulder pain but it does not bother her functional mobility at this point. She decribes it as numbness and tingling sensation at 2nd-4th finger tips and bilateral wrists. symptoms usually get worse with knitting or holding her book for more than 10-15 mins that she has to stop and rest in order to relieve her symptoms. She also stated placing her fingers into extension also relieve her symptoms. In addition, she is now having difficulty in sleeping too with intermittent tingling and numbness sensation. Pt did not have physical therapy before. Prior Treatments and Tests pt did not have any diagnostic imaging done. Future Testing and Treatments Planned Pt is going to have PT evaluation for her LBP and L knee pain next week Treatment Goals Patient/Caregiver Goals 1. able to knit as long as she can without pain 2. able to read more than an hour without symptoms 3. to improve overall shoulder strength Prior Functional Status Baseline Function- ADL's Independent Baseline Function- Mobility Independent Baseline Function- Recreation/Hobbies Pt was able to knit and read for more than an hour Current Functional Impairments (Reported) Functional Limitations- Recreation/ unable to knit and read for Hobbies more than 10 mins PT-OP-C Subjective Start: 09/01/18 14:45 Freq: Status: Active Protocol: Document 10/02/18 12:05 DCW (Rec: 10/02/18 12:44 DCW [id number]) OP-PT Subjective Patient Comments Patient Comments Pt reports she feels like PT has been helpful, she is having much less constant aching recently. PT-OP-F Manual Assessment Start: 09/01/18 14:45 Freq: Status: Active Protocol: Document 09/08/18 11:15 HH (Rec: 09/08/18 12:38 HH [email or web address]) Manual Assessments Soft Tissue Assessment Soft Tissue Mobility Assessment Significant tenderness to pressure on R paraspinals, R proximal glute max and medius, and piriformis PT-OP-G Mobility & Gait Start: 09/01/18 14:45 Freq: Status: Active Protocol: Document 09/08/18 11:15 HH (Rec: 09/08/18 12:38 HH [email or web address]) OP Gait Assessment Gait Gait Assistance Required: Independent Assistive Devices Assistive Device None Gait Deviations General Gait Pattern Antalgic Decreased Stride Length Decreased Feet Clearance Flexed Trunk Factors Limiting Gait Function Factors Limiting Gait Function Decreased Strength Limited Range of Motion Comments Gait Comments decreased time spent on LLE mid stance and early heel raise. flexed trunk during gait PT-OP-J Posture/Palpation/Skin Start: 09/01/18 14:45 Freq: Status: Active Protocol: Document 09/01/18 13:45 HH (Rec: 09/01/18 15:15 HH [email or web address]) Posture Evaluation Position Standing Evaluation View Lateral Head/C-Spine Posture Forward Head T-Spine Posture Increased Kyphosis L-Spine Posture Flexed Pelvis Posture Anteriorly Tilted PT-OP-K Range of Motion Start: 09/01/18 14:45 Freq: Status: Active Protocol: Document 09/08/18 11:15 HH (Rec: 09/08/18 12:38 HH [email or web address]) Lumbar Spine Range of Motion Lumbar Spine Active Percentage Testing Position Standing Flexion 70 Extension 0 Rotation Left 60 Rotation Right 60 Lateral Flexion Left 50 Lateral Flexion Right 50 Comments pain during lateral flexion and extension Hip Goniometric Range of Motion Hip Left Active Hip ROM WFL No Flexion w/Knee Flexed 120 Straight Leg Raise 90 Extension 0 Abduction 12 Right Active Hip ROM WFL No Flexion w/Knee Flexed 120 Straight Leg Raise 80 Extension 0 Abduction 10 PT-OP-L Special Tests Start: 09/01/18 14:45 Freq: Status: Active Protocol: Document 09/08/18 11:15 HH (Rec: 09/08/18 12:38 HH [email or web address]) Special Tests Lumbar Spine Special Tests facet syndrome Test Results +ve Comments R > L Hip Special Tests Scour Test Test Results +ve Comments pain at R hip joint CYNDI Test Results +Ve Comments on R pain at posterior hip PT-OP-M Strength Start: 09/01/18 14:45 Freq: Status: Active Protocol: Document 09/08/18 11:15 HH (Rec: 09/08/18 12:38 HH [email or web address]) Trunk Strength Trunk Manual Muscle Testing Testing Position Sitting Flexion 3+ Fair+ Extension 3+ Fair+ Rotation Left 3+ Fair+ Rotation Right 3+ Fair+ Lateral Flexion Left 3+ Fair+ Lateral Flexion Right 3+ Fair+ PT-OP-Q Treatments Start: 09/01/18 14:45 Freq: Status: Active Protocol: Document 10/02/18 12:05 DCW (Rec: 10/02/18 12:44 DCW [id number]) Therapeutic Exercises Supine Exercises hip abd Supine Exercise Name Hip AB & BKFO Side bilateral Reps/Minutes 20 Comments VCs to prevent ER on Abd 1 Supine Exercise Name Bridging Reps/Minutes 10 reps x 3 supine sciatic nerve glide Supine Exercise Name hip 90 degrees with ankle DF and PF Side right Reps/Minutes 2 chin tuck Supine Exercise Name chin tuck/head lift Side bilateral Reps/Minutes 2 mins Comments cues on alignment and push against pillow Sitting Exercises scap retraction and protraction Side bilateral Reps/Minutes 10 x2 UT/Scalenes stretch Side bilateral Reps/Minutes 10 x 6 each Comments correction on HEP to use chair edge for support Manual Therapy Treatment Soft Tissue Mobilization Sub-occipital, B UTs and scalenes Body Location B UT, scalenes Mobilization Type Myofascial Release Rolling Sustained Pressure Trigger Point Release Intensity/Depth Moderate Body Position Hooklying Manual Traction Cervical Details Gentle manual traction Body Position Supine Reps/Duration 8 mins Manual Techniques PROM to c-spine Body Location c-spine Body Position Hooklying Comments B rotation, side bend and ext with gentle end range stretch. PT-OP-T Assessment and Plan Start: 09/01/18 14:45 Freq: Status: Active Protocol: Document 10/02/18 12:05 DCW (Rec: 10/02/18 12:44 DCW [id number]) Physical Therapy Assessment Impairments Impairments Activity Tolerance Functional Activities Functional Mobility Pain Posture ROM Soft Tissue Mobility Strength Goals quick dash Impairment pt scores 36 (20-39 % impairment) Rock Room Worker Goal (LTG) Pt will score 1-19 pts on quickdash to improve her functional neck and shoulder mobility. LTG Duration 10 weeks HEP Impairment pt does not have a HEP Rock Room Worker Goal (LTG) Pt will be able to follow HEP independently with proper and safe body mechanics LTG Duration 6 weeks neurological symptoms Impairment intermittent tingling and numbness sensation on both hands [facility] Goal (LTG) Pt will not experience tingling/numbness sensation on both hands during knitting/ book reading for more than 30 mins. LTG Duration 10 weeks strength Impairment Slight decreased b shoulder strength Rock Room Worker Goal (LTG) Pt will be able to increase 1 MMT grade of B shoulder strength to improver her overhead mobility LTG Duration 10 weeks Assessment Summary Assessment Pt improving both with pain and cervical ROM. Physical Therapy Plan Frequency and Duration Frequency of Treatment 2x/Week Duration of Treatment 10 weeks Plan of Care Start Date 09/01/18 Plan of Care End Date 11/19/18 Therapeutic Interventions Therapeutic Interventions Home Exercise Program Joint Mobilizations Manual Therapy Neuromuscular Re-education Patient/Caregiver Education Self-Care/Home Management Soft Tissue Mobilization Taping Therapeutic Activities Therapeutic Exercises Modalities Cold Pack/Ice Massage Electric Stimulation Hot Packs Infrared Therapy Traction- Mechanical Ultrasound Next Visit Focus/Plan Next Note Type Treatment Note Next Visit Plan HEP progression follow up Progress strengthening (hip & UE) Test Mr Teacher strength Thoracic mobility training. Hip flexor stretch.
--- NOTE | 2018-10-10 14:35 | PT.OTN ---
Current Diagnoses Unilateral primary osteoarthritis, unspecified hip (10/10/18) Spondylosis without myelopathy or radiculopathy, site unspecified (10/10/18) Physical Therapy Treatment Note PT-OP-A Visit Information Start: 09/01/18 14:45 Freq: Status: Active Protocol: Document 10/10/18 14:26 SA (Rec: 10/10/18 14:34 SA [email or web address]) Out-Patient Physical Therapy Visit Information Visit Information Visit Type Treatment Note Visit Start Time 13:00 Visit Stop Time 13:45 Total Visit Minutes 45 Visit Number 10 Number of STATION HELPER Visits 1 PT-OP-B Current Condition Start: 09/01/18 14:45 Freq: Status: Active Protocol: Document 09/01/18 13:45 HH (Rec: 09/01/18 15:15 HH [email or web address]) Current Condition History of Current Condition Onset Date >1 year ago Current Complaints B carpel tunnel syndrome, difficulty in readying and knitting History of Current Condition pt presents to clinic today with primary c/o of B carpel tunnel syndrome started more than a year ago. Pt does not know why but symptoms tend to start while she is knitting and reading. She also c/o ongoing R shoulder pain but it does not bother her functional mobility at this point. She decribes it as numbness and tingling sensation at 2nd-4th finger tips and bilateral wrists. symptoms usually get worse with knitting or holding her book for more than 10-15 mins that she has to stop and rest in order to relieve her symptoms. She also stated placing her fingers into extension also relieve her symptoms. In addition, she is now having difficulty in sleeping too with intermittent tingling and numbness sensation. Pt did not have physical therapy before. Prior Treatments and Tests pt did not have any diagnostic imaging done. Future Testing and Treatments Planned Pt is going to have PT evaluation for her LBP and L knee pain next week Treatment Goals Patient/Caregiver Goals 1. able to knit as long as she can without pain 2. able to read more than an hour without symptoms 3. to improve overall shoulder strength Prior Functional Status Baseline Function- ADL's Independent Baseline Function- Mobility Independent Baseline Function- Recreation/Hobbies Pt was able to knit and read for more than an hour Current Functional Impairments (Reported) Functional Limitations- Recreation/ unable to knit and read for Hobbies more than 10 mins PT-OP-C Subjective Start: 09/01/18 14:45 Freq: Status: Active Protocol: Document 10/10/18 14:26 SA (Rec: 10/10/18 14:34 SA [email or web address]) OP-PT Subjective Patient Comments Patient Comments Pt feels exercises are helping and does HEP daily. Pain is decreased and understands the HEP may be her maintanence program after she d/c's from PT. PT-OP-F Manual Assessment Start: 09/01/18 14:45 Freq: Status: Active Protocol: Document 09/08/18 11:15 HH (Rec: 09/08/18 12:38 HH [email or web address]) Manual Assessments Soft Tissue Assessment Soft Tissue Mobility Assessment Significant tenderness to pressure on R paraspinals, R proximal glute max and medius, and piriformis PT-OP-G Mobility & Gait Start: 09/01/18 14:45 Freq: Status: Active Protocol: Document 09/08/18 11:15 HH (Rec: 09/08/18 12:38 HH [email or web address]) OP Gait Assessment Gait Gait Assistance Required: Independent Assistive Devices Assistive Device None Gait Deviations General Gait Pattern Antalgic Decreased Stride Length Decreased Feet Clearance Flexed Trunk Factors Limiting Gait Function Factors Limiting Gait Function Decreased Strength Limited Range of Motion Comments Gait Comments decreased time spent on LLE mid stance and early heel raise. flexed trunk during gait PT-OP-J Posture/Palpation/Skin Start: 09/01/18 14:45 Freq: Status: Active Protocol: Document 09/01/18 13:45 HH (Rec: 09/01/18 15:15 HH [email or web address]) Posture Evaluation Position Standing Evaluation View Lateral Head/C-Spine Posture Forward Head T-Spine Posture Increased Kyphosis L-Spine Posture Flexed Pelvis Posture Anteriorly Tilted PT-OP-K Range of Motion Start: 09/01/18 14:45 Freq: Status: Active Protocol: Document 09/08/18 11:15 HH (Rec: 09/08/18 12:38 HH [email or web address]) Lumbar Spine Range of Motion Lumbar Spine Active Percentage Testing Position Standing Flexion 70 Extension 0 Rotation Left 60 Rotation Right 60 Lateral Flexion Left 50 Lateral Flexion Right 50 Comments pain during lateral flexion and extension Hip Goniometric Range of Motion Hip Left Active Hip ROM WFL No Flexion w/Knee Flexed 120 Straight Leg Raise 90 Extension 0 Abduction 12 Right Active Hip ROM WFL No Flexion w/Knee Flexed 120 Straight Leg Raise 80 Extension 0 Abduction 10 PT-OP-L Special Tests Start: 09/01/18 14:45 Freq: Status: Active Protocol: Document 09/08/18 11:15 HH (Rec: 09/08/18 12:38 HH [email or web address]) Special Tests Lumbar Spine Special Tests facet syndrome Test Results +ve Comments R > L Hip Special Tests Scour Test Test Results +ve Comments pain at R hip joint CYNDI Test Results +Ve Comments on R pain at posterior hip PT-OP-M Strength Start: 09/01/18 14:45 Freq: Status: Active Protocol: Document 09/08/18 11:15 HH (Rec: 09/08/18 12:38 HH [email or web address]) Trunk Strength Trunk Manual Muscle Testing Testing Position Sitting Flexion 3+ Fair+ Extension 3+ Fair+ Rotation Left 3+ Fair+ Rotation Right 3+ Fair+ Lateral Flexion Left 3+ Fair+ Lateral Flexion Right 3+ Fair+ PT-OP-Q Treatments Start: 09/01/18 14:45 Freq: Status: Active Protocol: Document 10/10/18 14:26 SA (Rec: 10/10/18 14:34 SA [email or web address]) Therapeutic Exercises Supine Exercises HS stretching Side bilateral Reps/Minutes 30 x 2 each Neck Elongtion Supine Exercise Name Deep C. Neck Flexor strengthening. Reps/Minutes 12x Comments postural cues hip abd Supine Exercise Name Hip AB & BKFO Side bilateral Reps/Minutes 20 Comments VCs to prevent ER on Abd 1 Supine Exercise Name Bridging Reps/Minutes 10x 2 supine sciatic nerve glide Supine Exercise Name hip 90 degrees with ankle DF and PF Side right Reps/Minutes 2 chin tuck Supine Exercise Name chin tuck/head lift Side bilateral Reps/Minutes 2 mins Comments cues on alignment and push against pillow Sitting Exercises scap retraction and protraction Side bilateral Reps/Minutes 10 x2 UT/Scalenes stretch Side bilateral Reps/Minutes 10 x 6 each Comments correction on HEP to use chair edge for support Standing Exercises 2 Standing Exercise Name Wall posture Reps/Minutes x 5 mins Scapular rows Side bilateral Resistance TB LV 2 Reps/Minutes 15x Manual Therapy Treatment Soft Tissue Mobilization Sub-occipital, B UTs and scalenes Body Location B UT, scalenes Mobilization Type Myofascial Release Rolling Sustained Pressure Trigger Point Release Body Position Hooklying Manual Traction Cervical Details Gentle manual traction Body Position Supine Reps/Duration 6 min Manual Techniques PROM to c-spine Body Location c-spine Body Position Hooklying Comments B rotation, side bend and ext with gentle end range stretch. PT-OP-T Assessment and Plan Start: 09/01/18 14:45 Freq: Status: Active Protocol: Document 10/10/18 14:26 SA (Rec: 10/10/18 14:34 SA [email or web address]) Physical Therapy Assessment Assessment Summary Assessment Decreased low back and cervical symptoms with improving c-spine ROM. Added HS stretching to HEP. Physical Therapy Plan Next Visit Focus/Plan Next Note Type Treatment Note Next Visit Plan Cont to progress hip and UE strengthening and manual therapy as needed.
--- NOTE | 2018-10-12 15:35 | PT.OTN ---
Current Diagnoses Unilateral primary osteoarthritis, unspecified hip (10/12/18) Spondylosis without myelopathy or radiculopathy, site unspecified (10/12/18) Physical Therapy Treatment Note PT-OP-A Visit Information Start: 09/01/18 14:45 Freq: Status: Active Protocol: Document 10/12/18 15:18 [facility] (Rec: 10/12/18 15:35 [facility] [email or web address]) Out-Patient Physical Therapy Visit Information Visit Information Visit Type Treatment Note Visit Start Time 13:45 Visit Stop Time 14:30 Total Visit Minutes 45 Visit Number 11 Number of VAULT TELLER Visits 2 PT-OP-B Current Condition Start: 09/01/18 14:45 Freq: Status: Active Protocol: Document 09/01/18 13:45 HH (Rec: 09/01/18 15:15 HH [email or web address]) Current Condition History of Current Condition Onset Date >1 year ago Current Complaints B carpel tunnel syndrome, difficulty in readying and knitting History of Current Condition pt presents to clinic today with primary c/o of B carpel tunnel syndrome started more than a year ago. Pt does not know why but symptoms tend to start while she is knitting and reading. She also c/o ongoing R shoulder pain but it does not bother her functional mobility at this point. She decribes it as numbness and tingling sensation at 2nd-4th finger tips and bilateral wrists. symptoms usually get worse with knitting or holding her book for more than 10-15 mins that she has to stop and rest in order to relieve her symptoms. She also stated placing her fingers into extension also relieve her symptoms. In addition, she is now having difficulty in sleeping too with intermittent tingling and numbness sensation. Pt did not have physical therapy before. Prior Treatments and Tests pt did not have any diagnostic imaging done. Future Testing and Treatments Planned Pt is going to have PT evaluation for her LBP and L knee pain next week Treatment Goals Patient/Caregiver Goals 1. able to knit as long as she can without pain 2. able to read more than an hour without symptoms 3. to improve overall shoulder strength Prior Functional Status Baseline Function- ADL's Independent Baseline Function- Mobility Independent Baseline Function- Recreation/Hobbies Pt was able to knit and read for more than an hour Current Functional Impairments (Reported) Functional Limitations- Recreation/ unable to knit and read for Hobbies more than 10 mins PT-OP-C Subjective Start: 09/01/18 14:45 Freq: Status: Active Protocol: Document 10/12/18 15:18 [facility] (Rec: 10/12/18 15:35 [facility] [email or web address]) OP-PT Subjective Patient Comments Patient Comments Teresa reports she is doing better and she reports the stretches are really helping her tissue PT-OP-F Manual Assessment Start: 09/01/18 14:45 Freq: Status: Active Protocol: Document 09/08/18 11:15 HH (Rec: 09/08/18 12:38 HH [email or web address]) Manual Assessments Soft Tissue Assessment Soft Tissue Mobility Assessment Significant tenderness to pressure on R paraspinals, R proximal glute max and medius, and piriformis PT-OP-G Mobility & Gait Start: 09/01/18 14:45 Freq: Status: Active Protocol: Document 09/08/18 11:15 HH (Rec: 09/08/18 12:38 HH [email or web address]) OP Gait Assessment Gait Gait Assistance Required: Independent Assistive Devices Assistive Device None Gait Deviations General Gait Pattern Antalgic Decreased Stride Length Decreased Feet Clearance Flexed Trunk Factors Limiting Gait Function Factors Limiting Gait Function Decreased Strength Limited Range of Motion Comments Gait Comments decreased time spent on LLE mid stance and early heel raise. flexed trunk during gait PT-OP-J Posture/Palpation/Skin Start: 09/01/18 14:45 Freq: Status: Active Protocol: Document 09/01/18 13:45 HH (Rec: 09/01/18 15:15 HH [email or web address]) Posture Evaluation Position Standing Evaluation View Lateral Head/C-Spine Posture Forward Head T-Spine Posture Increased Kyphosis L-Spine Posture Flexed Pelvis Posture Anteriorly Tilted PT-OP-K Range of Motion Start: 09/01/18 14:45 Freq: Status: Active Protocol: Document 09/08/18 11:15 HH (Rec: 09/08/18 12:38 HH [email or web address]) Lumbar Spine Range of Motion Lumbar Spine Active Percentage Testing Position Standing Flexion 70 Extension 0 Rotation Left 60 Rotation Right 60 Lateral Flexion Left 50 Lateral Flexion Right 50 Comments pain during lateral flexion and extension Hip Goniometric Range of Motion Hip Left Active Hip ROM WFL No Flexion w/Knee Flexed 120 Straight Leg Raise 90 Extension 0 Abduction 12 Right Active Hip ROM WFL No Flexion w/Knee Flexed 120 Straight Leg Raise 80 Extension 0 Abduction 10 PT-OP-L Special Tests Start: 09/01/18 14:45 Freq: Status: Active Protocol: Document 09/08/18 11:15 HH (Rec: 09/08/18 12:38 HH [email or web address]) Special Tests Lumbar Spine Special Tests facet syndrome Test Results +ve Comments R > L Hip Special Tests Scour Test Test Results +ve Comments pain at R hip joint CYNDI Test Results +Ve Comments on R pain at posterior hip PT-OP-M Strength Start: 09/01/18 14:45 Freq: Status: Active Protocol: Document 09/08/18 11:15 HH (Rec: 09/08/18 12:38 HH [email or web address]) Trunk Strength Trunk Manual Muscle Testing Testing Position Sitting Flexion 3+ Fair+ Extension 3+ Fair+ Rotation Left 3+ Fair+ Rotation Right 3+ Fair+ Lateral Flexion Left 3+ Fair+ Lateral Flexion Right 3+ Fair+ PT-OP-Q Treatments Start: 09/01/18 14:45 Freq: Status: Active Protocol: Document 10/12/18 15:18 [facility] (Rec: 10/12/18 15:35 [facility] [email or web address]) Therapeutic Exercises Supine Exercises Neck Elongtion Supine Exercise Name Deep C. Neck Flexor strengthening. Reps/Minutes 12x Comments postural cues chin tuck Supine Exercise Name chin tuck/head lift Side bilateral Reps/Minutes 2 mins Comments cues on alignment and push against pillow Sitting Exercises 1 Sitting Exercise Name seated shoulder ER Reps/Minutes 3 x 10 reps scap retraction and protraction Side bilateral Reps/Minutes 10 x2 Thoracic EXT/postural correction Side bilateral Reps/Minutes 3 min Comments cues for alignment UT/Scalenes stretch Side bilateral Reps/Minutes 10 x 6 each Comments correction on HEP to use chair edge for support Standing Exercises 2 Standing Exercise Name Wall posture Reps/Minutes x 5 mins 1 Standing Exercise Name Pectoral and antrior shoulder capsule stretch Scapular rows Side bilateral Resistance TB LV 2 Reps/Minutes 15x Manual Therapy Treatment Soft Tissue Mobilization Sub-occipital, B UTs and scalenes Body Location B UT, scalenes Mobilization Type Myofascial Release Rolling Sustained Pressure Trigger Point Release Body Position Hooklying Joint Mobilizations 1 Joint seated upper thoracic PA glides Manual Traction Cervical Details Gentle manual traction Body Position Supine Reps/Duration 6 min Nerve Glides median nerve glide Nerve median Comments supine nerve glides Manual Techniques 1 Type manual pec minor stretch PROM to c-spine Body Location c-spine Body Position Hooklying Comments B rotation, side bend and ext with gentle end range stretch. PT-OP-T Assessment and Plan Start: 09/01/18 14:45 Freq: Status: Active Protocol: Document 10/12/18 15:18 [facility] (Rec: 10/12/18 15:35 [facility] [email or web address]) Physical Therapy Assessment Assessment Summary Assessment Pt is liking her home stretches, added in seated B shoulder ER without resistance . Worked on pectoralis stretching today Physical Therapy Plan Frequency and Duration Frequency of Treatment 2x/Week Duration of Treatment 10 weeks Plan of Care Start Date 09/01/18 Plan of Care End Date 11/19/18 Therapeutic Interventions Therapeutic Interventions Home Exercise Program Joint Mobilizations Manual Therapy Neuromuscular Re-education Patient/Caregiver Education Self-Care/Home Management Soft Tissue Mobilization Taping Therapeutic Activities Therapeutic Exercises Modalities Cold Pack/Ice Massage Electric Stimulation Hot Packs Infrared Therapy Traction- Mechanical Ultrasound Next Visit Focus/Plan Next Note Type Treatment Note Next Visit Plan continue to progress posture and thoracic mobility as well as cervical ROM
--- NOTE | 2018-11-03 13:58 | PT.OTN ---
Current Diagnoses Unilateral primary osteoarthritis, unspecified hip (11/03/18) Spondylosis without myelopathy or radiculopathy, site unspecified (11/03/18) Physical Therapy Treatment Note PT-OP-A Visit Information Start: 09/01/18 14:45 Freq: Status: Active Protocol: Document 11/03/18 13:48 HH (Rec: 11/03/18 13:58 HH [email or web address]) Out-Patient Physical Therapy Visit Information Visit Information Visit Type Treatment Note Visit Start Time 13:02 Visit Stop Time 13:48 Total Visit Minutes 46 Visit Number 12 Number of PLASTIC TILE LAYER Visits 0 PT-OP-B Current Condition Start: 09/01/18 14:45 Freq: Status: Active Protocol: Document 09/01/18 13:45 HH (Rec: 09/01/18 15:15 HH [email or web address]) Current Condition History of Current Condition Onset Date >1 year ago Current Complaints B carpel tunnel syndrome, difficulty in readying and knitting History of Current Condition pt presents to clinic today with primary c/o of B carpel tunnel syndrome started more than a year ago. Pt does not know why but symptoms tend to start while she is knitting and reading. She also c/o ongoing R shoulder pain but it does not bother her functional mobility at this point. She decribes it as numbness and tingling sensation at 2nd-4th finger tips and bilateral wrists. symptoms usually get worse with knitting or holding her book for more than 10-15 mins that she has to stop and rest in order to relieve her symptoms. She also stated placing her fingers into extension also relieve her symptoms. In addition, she is now having difficulty in sleeping too with intermittent tingling and numbness sensation. Pt did not have physical therapy before. Prior Treatments and Tests pt did not have any diagnostic imaging done. Future Testing and Treatments Planned Pt is going to have PT evaluation for her LBP and L knee pain next week Treatment Goals Patient/Caregiver Goals 1. able to knit as long as she can without pain 2. able to read more than an hour without symptoms 3. to improve overall shoulder strength Prior Functional Status Baseline Function- ADL's Independent Baseline Function- Mobility Independent Baseline Function- Recreation/Hobbies Pt was able to knit and read for more than an hour Current Functional Impairments (Reported) Functional Limitations- Recreation/ unable to knit and read for Hobbies more than 10 mins PT-OP-C Subjective Start: 09/01/18 14:45 Freq: Status: Active Protocol: Document 11/03/18 13:48 HH (Rec: 11/03/18 13:58 HH [email or web address]) OP-PT Subjective Patient Comments Patient Comments Pt has not been seen for 3 weeks due to shingles. Pt states she was very weak and has not been doing HEP. She is now getting better slowly and thinks the shingles set back her rehab progress. PT-OP-F Manual Assessment Start: 09/01/18 14:45 Freq: Status: Active Protocol: Document 09/08/18 11:15 HH (Rec: 09/08/18 12:38 [email or web address]) Manual Assessments Soft Tissue Assessment Soft Tissue Mobility Assessment Significant tenderness to pressure on R paraspinals, R proximal glute max and medius, and piriformis PT-OP-G Mobility & Gait Start: 09/01/18 14:45 Freq: Status: Active Protocol: Document 09/08/18 11:15 HH (Rec: 09/08/18 12:38 [email or web address]) OP Gait Assessment Gait Gait Assistance Required: Independent Assistive Devices Assistive Device None Gait Deviations General Gait Pattern Antalgic Decreased Stride Length Decreased Feet Clearance Flexed Trunk Factors Limiting Gait Function Factors Limiting Gait Function Decreased Strength Limited Range of Motion Comments Gait Comments decreased time spent on LLE mid stance and early heel raise. flexed trunk during gait PT-OP-J Posture/Palpation/Skin Start: 09/01/18 14:45 Freq: Status: Active Protocol: Document 09/01/18 13:45 HH (Rec: 09/01/18 15:15 HH [email or web address]) Posture Evaluation Position Standing Evaluation View Lateral Head/C-Spine Posture Forward Head T-Spine Posture Increased Kyphosis L-Spine Posture Flexed Pelvis Posture Anteriorly Tilted PT-OP-K Range of Motion Start: 09/01/18 14:45 Freq: Status: Active Protocol: Document 09/08/18 11:15 HH (Rec: 09/08/18 12:38 [email or web address]) Lumbar Spine Range of Motion Lumbar Spine Active Percentage Testing Position Standing Flexion 70 Extension 0 Rotation Left 60 Rotation Right 60 Lateral Flexion Left 50 Lateral Flexion Right 50 Comments pain during lateral flexion and extension Hip Goniometric Range of Motion Hip Left Active Hip ROM WFL No Flexion w/Knee Flexed 120 Straight Leg Raise 90 Extension 0 Abduction 12 Right Active Hip ROM WFL No Flexion w/Knee Flexed 120 Straight Leg Raise 80 Extension 0 Abduction 10 PT-OP-L Special Tests Start: 09/01/18 14:45 Freq: Status: Active Protocol: Document 09/08/18 11:15 HH (Rec: 09/08/18 12:38 HH [email or web address]) Special Tests Lumbar Spine Special Tests facet syndrome Test Results +ve Comments R > L Hip Special Tests Scour Test Test Results +ve Comments pain at R hip joint CYNDI Test Results +Ve Comments on R pain at posterior hip PT-OP-M Strength Start: 09/01/18 14:45 Freq: Status: Active Protocol: Document 09/08/18 11:15 HH (Rec: 09/08/18 12:38 [email or web address]) Trunk Strength Trunk Manual Muscle Testing Testing Position Sitting Flexion 3+ Fair+ Extension 3+ Fair+ Rotation Left 3+ Fair+ Rotation Right 3+ Fair+ Lateral Flexion Left 3+ Fair+ Lateral Flexion Right 3+ Fair+ PT-OP-Q Treatments Start: 09/01/18 14:45 Freq: Status: Active Protocol: Document 11/03/18 13:48 HH (Rec: 11/03/18 13:58 HH [email or web address]) Cardio Equipment Upper Body Ergometer (UBE) Duration (Minutes) 3 RPM 70 Height shd level Recumbent Bicycle Duration (Minutes) 4 Resistance 3 Therapeutic Exercises Supine Exercises Neck Elongtion Supine Exercise Name Deep C. Neck Flexor strengthening. Reps/Minutes 12x Comments postural cues chin tuck Supine Exercise Name chin tuck/head lift Side bilateral Reps/Minutes 10 secs hold x 3 Comments cues on alignment and push against pillow Sitting Exercises seated shd press Side bilateral Reps/Minutes 6 x 2 Comments cues on neutral spine scap retraction and protraction Side bilateral Reps/Minutes 10 x2 table slides Equipment Used with martínez therapy ball Reps/Minutes 10 x 4 Comments flexion, flexion+ lateral flexion Standing Exercises shd extension Equipment Used PVC pipe Reps/Minutes 8 x 2 Comments cues on neutral spine 1 Standing Exercise Name Pectoral and antrior shoulder capsule stretch Equipment Used with Pvc pipe Manual Therapy Treatment Nerve Glides median nerve glide Nerve median Body Position Sitting Comments with cervical lateral flexion PT-OP-T Assessment and Plan Start: 09/01/18 14:45 Freq: Status: Active Protocol: Document 11/03/18 13:48 (Rec: 11/03/18 13:58 [email or web address]) Physical Therapy Assessment Goals quick dash Impairment pt scores 36 (20-39 % impairment) Fdc Goal (LTG) Pt will score 1-19 pts on quickdash to improve her functional neck and shoulder mobility. LTG Duration 10 weeks HEP Impairment pt does not have a HEP Chef Assistant Goal (LTG) 11/03: pt has not been following HEP for the past 2 weeks due to shingle. Pt will be able to follow HEP independently with proper and safe body mechanics LTG Duration 4 weeks neurological symptoms Impairment intermittent tingling and numbness sensation on both hands Chef Assistant Goal (LTG) 11/03: pt is able knitt without symptoms for 15-30 mins Pt will not experience tingling/numbness sensation on both hands during knitting/ book reading for more than 30 mins. LTG Duration 4 weeks strength Fdc Goal (LTG) 11/03 cont in progress Pt will be able to increase 1 MMT grade of B shoulder strength to improver her overhead mobility [ End ] LTG Duration 4 weeks Progress Towards Goals Progress Towards Goals Slow Progress due to Medical Issues Assessment Summary Assessment Pt returned to clinic after 3 weeks due to shingles. Pt appears weaker than before but slowly recovering. Recommended pt to return to her HEP routine. She is overall progressing fairly well in terms of neurological symptoms. She is now symptoms free until kntting/ reading> 15-30 mins Physical Therapy Plan Next Visit Focus/Plan Next Note Type Treatment Note Next Visit Plan check pt's HEP compliance cont progress overall strengthening, shd mobility and T/S mobility. LLE strengthening as danay
--- NOTE | 2018-11-07 12:20 | PT.OTN ---
Current Diagnoses Unilateral primary osteoarthritis, unspecified hip (11/07/18) Spondylosis without myelopathy or radiculopathy, site unspecified (11/07/18) Physical Therapy Treatment Note PT-OP-A Visit Information Start: 09/01/18 14:45 Freq: Status: Active Protocol: Document 11/07/18 11:14 LRN (Rec: 11/07/18 12:17 LRN [id number]) Out-Patient Physical Therapy Visit Information Visit Information Visit Type Treatment Note Visit Start Time 11:14 Visit Stop Time 12:05 Total Visit Minutes 51 Visit Number 13 Number of CHAIN MAKER MACHINE Visits 0 Evaluation Information Evaluation Date 09/01/18 PT-OP-B Current Condition Start: 09/01/18 14:45 Freq: Status: Active Protocol: Document 09/01/18 13:45 HH (Rec: 09/01/18 15:15 HH [email or web address]) Current Condition History of Current Condition Onset Date >1 year ago Current Complaints B carpel tunnel syndrome, difficulty in readying and knitting History of Current Condition pt presents to clinic today with primary c/o of B carpel tunnel syndrome started more than a year ago. Pt does not know why but symptoms tend to start while she is knitting and reading. She also c/o ongoing R shoulder pain but it does not bother her functional mobility at this point. She decribes it as numbness and tingling sensation at 2nd-4th finger tips and bilateral wrists. symptoms usually get worse with knitting or holding her book for more than 10-15 mins that she has to stop and rest in order to relieve her symptoms. She also stated placing her fingers into extension also relieve her symptoms. In addition, she is now having difficulty in sleeping too with intermittent tingling and numbness sensation. Pt did not have physical therapy before. Prior Treatments and Tests pt did not have any diagnostic imaging done. Future Testing and Treatments Planned Pt is going to have PT evaluation for her LBP and L knee pain next week Treatment Goals Patient/Caregiver Goals 1. able to knit as long as she can without pain 2. able to read more than an hour without symptoms 3. to improve overall shoulder strength Prior Functional Status Baseline Function- ADL's Independent Baseline Function- Mobility Independent Baseline Function- Recreation/Hobbies Pt was able to knit and read for more than an hour Current Functional Impairments (Reported) Functional Limitations- Recreation/ unable to knit and read for Hobbies more than 10 mins PT-OP-C Subjective Start: 09/01/18 14:45 Freq: Status: Active Protocol: Document 11/07/18 11:14 LRN (Rec: 11/07/18 12:17 LRN [id number]) OP-PT Subjective Patient Comments Patient Comments Has been weak since having shingles. Only able to do 2' on bike at home instead of the 5' normally. Not been knitting haven't felt like it . States numbness tingling with laying on the arm at night. PT-OP-F Manual Assessment Start: 09/01/18 14:45 Freq: Status: Active Protocol: Document 09/08/18 11:15 HH (Rec: 09/08/18 12:38 HH [email or web address]) Manual Assessments Soft Tissue Assessment Soft Tissue Mobility Assessment Significant tenderness to pressure on R paraspinals, R proximal glute max and medius, and piriformis PT-OP-G Mobility & Gait Start: 09/01/18 14:45 Freq: Status: Active Protocol: Document 09/08/18 11:15 HH (Rec: 09/08/18 12:38 HH [email or web address]) OP Gait Assessment Gait Gait Assistance Required: Independent Assistive Devices Assistive Device None Gait Deviations General Gait Pattern Antalgic Decreased Stride Length Decreased Feet Clearance Flexed Trunk Factors Limiting Gait Function Factors Limiting Gait Function Decreased Strength Limited Range of Motion Comments Gait Comments decreased time spent on LLE mid stance and early heel raise. flexed trunk during gait PT-OP-J Posture/Palpation/Skin Start: 09/01/18 14:45 Freq: Status: Active Protocol: Document 09/01/18 13:45 HH (Rec: 09/01/18 15:15 HH [email or web address]) Posture Evaluation Position Standing Evaluation View Lateral Head/C-Spine Posture Forward Head T-Spine Posture Increased Kyphosis L-Spine Posture Flexed Pelvis Posture Anteriorly Tilted PT-OP-K Range of Motion Start: 09/01/18 14:45 Freq: Status: Active Protocol: Document 09/08/18 11:15 HH (Rec: 09/08/18 12:38 HH [email or web address]) Lumbar Spine Range of Motion Lumbar Spine Active Percentage Testing Position Standing Flexion 70 Extension 0 Rotation Left 60 Rotation Right 60 Lateral Flexion Left 50 Lateral Flexion Right 50 Comments pain during lateral flexion and extension Hip Goniometric Range of Motion Hip Left Active Hip ROM WFL No Flexion w/Knee Flexed 120 Straight Leg Raise 90 Extension 0 Abduction 12 Right Active Hip ROM WFL No Flexion w/Knee Flexed 120 Straight Leg Raise 80 Extension 0 Abduction 10 PT-OP-L Special Tests Start: 09/01/18 14:45 Freq: Status: Active Protocol: Document 09/08/18 11:15 HH (Rec: 09/08/18 12:38 HH [email or web address]) Special Tests Lumbar Spine Special Tests facet syndrome Test Results +ve Comments R > L Hip Special Tests Scour Test Test Results +ve Comments pain at R hip joint CYNDI Test Results +Ve Comments on R pain at posterior hip PT-OP-M Strength Start: 09/01/18 14:45 Freq: Status: Active Protocol: Document 09/08/18 11:15 HH (Rec: 09/08/18 12:38 [email or web address]) Trunk Strength Trunk Manual Muscle Testing Testing Position Sitting Flexion 3+ Fair+ Extension 3+ Fair+ Rotation Left 3+ Fair+ Rotation Right 3+ Fair+ Lateral Flexion Left 3+ Fair+ Lateral Flexion Right 3+ Fair+ PT-OP-Q Treatments Start: 09/01/18 14:45 Freq: Status: Active Protocol: Document 11/07/18 11:14 LRN (Rec: 11/07/18 12:17 LRN [id number]) Cardio Equipment Upper Body Ergometer (UBE) Duration (Minutes) 5 RPM 90 Seat Position 12 Height shd level Recumbent Bicycle Duration (Minutes) 2 Other Stopped due to knee pain. Unable to adjust enough to avoid pain. Therapeutic Exercises Supine Exercises Median n gliding Supine Exercise Name Manual n. gliding Side bilateral Comments Extra time taken for training of pt to perform safely chin tuck Supine Exercise Name chin tuck/head lift Side bilateral Reps/Minutes throughout therapy Comments cues on alignment and push against pillow Sitting Exercises seated shd press Side bilateral Reps/Minutes x 2 Comments cues on neutral spine scap retraction and protraction Side bilateral Reps/Minutes 10 x2 Comments v cuing to prevent collapsing into chest on rest phase table slides Equipment Used with martínez therapy ball Reps/Minutes 10 x 4 Comments flexion, flexion+ lateral flexion UT/Scalenes stretch Side bilateral Reps/Minutes 30 x 2 Standing Exercises Scapular retract Standing Exercise Name Elbow 90 deg @ side, sup of hands with scap retract Side bilateral Equipment Used Light T-Band Reps/Minutes 10 x 3 shd extension Equipment Used PVC pipe Reps/Minutes 10 x 2 Comments cues on neutral spine Self-Care/Home Management Treatment Education Patient Education Home Exercise Program Activities Self-Care/Home Management Activities Issued & reviewed at length HEP: Self median n. glide. Reviewed with cane: shoulder press overhead and shoulder extension. Review required x 2. PT-OP-T Assessment and Plan Start: 09/01/18 14:45 Freq: Status: Active Protocol: Document 11/07/18 11:14 LRN (Rec: 11/07/18 12:17 LRN [id number]) Physical Therapy Assessment Assessment Summary Assessment Pt is being consistent with her HEP. Pt needed much cuing with UBE to prevent excessive trunk involvement with arm use. Pt needed much review of HEP to perform properly. Pt needs handouts probably for shoulder press overhead and emerson arm ext., assessment of pt knowledge on the ex will be needed next visit. Physical Therapy Plan Frequency and Duration Frequency of Treatment 2x/Week Duration of Treatment 10 weeks Plan of Care Start Date 09/01/18 Plan of Care End Date 11/19/18 Next Visit Focus/Plan Next Note Type Treatment Note Next Visit Plan Check pt's HEP for proper performing. Recommend issuing HEP handout for emerson UE shoulder press upward and shoulder ext, with cane if available. Cont progress overall strengthening without onset of UE numbness/tingling, shd mobility and T/S mobility. LLE strengthening as danay. Next week assess progress towards goals with POC update needed if appropriate.
--- NOTE | 2018-11-09 12:11 | PT.OTN ---
Current Diagnoses Unilateral primary osteoarthritis, unspecified hip (11/09/18) Spondylosis without myelopathy or radiculopathy, site unspecified (11/09/18) Physical Therapy Treatment Note PT-OP-A Visit Information Start: 09/01/18 14:45 Freq: Status: Active Protocol: Document 11/09/18 09:49 HH (Rec: 11/09/18 12:11 HH [email or web address]) Out-Patient Physical Therapy Visit Information Visit Information Visit Type Treatment Note Visit Start Time 09:49 Visit Stop Time 10:35 Total Visit Minutes 46 Visit Number 14 Number of CARD MAKER Visits 0 PT-OP-B Current Condition Start: 09/01/18 14:45 Freq: Status: Active Protocol: Document 09/01/18 13:45 HH (Rec: 09/01/18 15:15 HH [email or web address]) Current Condition History of Current Condition Onset Date >1 year ago Current Complaints B carpel tunnel syndrome, difficulty in readying and knitting History of Current Condition pt presents to clinic today with primary c/o of B carpel tunnel syndrome started more than a year ago. Pt does not know why but symptoms tend to start while she is knitting and reading. She also c/o ongoing R shoulder pain but it does not bother her functional mobility at this point. She decribes it as numbness and tingling sensation at 2nd-4th finger tips and bilateral wrists. symptoms usually get worse with knitting or holding her book for more than 10-15 mins that she has to stop and rest in order to relieve her symptoms. She also stated placing her fingers into extension also relieve her symptoms. In addition, she is now having difficulty in sleeping too with intermittent tingling and numbness sensation. Pt did not have physical therapy before. Prior Treatments and Tests pt did not have any diagnostic imaging done. Future Testing and Treatments Planned Pt is going to have PT evaluation for her LBP and L knee pain next week Treatment Goals Patient/Caregiver Goals 1. able to knit as long as she can without pain 2. able to read more than an hour without symptoms 3. to improve overall shoulder strength Prior Functional Status Baseline Function- ADL's Independent Baseline Function- Mobility Independent Baseline Function- Recreation/Hobbies Pt was able to knit and read for more than an hour Current Functional Impairments (Reported) Functional Limitations- Recreation/ unable to knit and read for Hobbies more than 10 mins PT-OP-C Subjective Start: 09/01/18 14:45 Freq: Status: Active Protocol: Document 11/09/18 09:49 HH (Rec: 11/09/18 12:11 HH [email or web address]) OP-PT Subjective Patient Comments Patient Comments im still recovering but im getting better. I was quite tired after last session. PT-OP-F Manual Assessment Start: 09/01/18 14:45 Freq: Status: Active Protocol: Document 09/08/18 11:15 HH (Rec: 09/08/18 12:38 HH [email or web address]) Manual Assessments Soft Tissue Assessment Soft Tissue Mobility Assessment Significant tenderness to pressure on R paraspinals, R proximal glute max and medius, and piriformis PT-OP-G Mobility & Gait Start: 09/01/18 14:45 Freq: Status: Active Protocol: Document 09/08/18 11:15 HH (Rec: 09/08/18 12:38 HH [email or web address]) OP Gait Assessment Gait Gait Assistance Required: Independent Assistive Devices Assistive Device None Gait Deviations General Gait Pattern Antalgic Decreased Stride Length Decreased Feet Clearance Flexed Trunk Factors Limiting Gait Function Factors Limiting Gait Function Decreased Strength Limited Range of Motion Comments Gait Comments decreased time spent on LLE mid stance and early heel raise. flexed trunk during gait PT-OP-J Posture/Palpation/Skin Start: 09/01/18 14:45 Freq: Status: Active Protocol: Document 09/01/18 13:45 HH (Rec: 09/01/18 15:15 HH [email or web address]) Posture Evaluation Position Standing Evaluation View Lateral Head/C-Spine Posture Forward Head T-Spine Posture Increased Kyphosis L-Spine Posture Flexed Pelvis Posture Anteriorly Tilted PT-OP-K Range of Motion Start: 09/01/18 14:45 Freq: Status: Active Protocol: Document 09/08/18 11:15 HH (Rec: 09/08/18 12:38 HH [email or web address]) Lumbar Spine Range of Motion Lumbar Spine Active Percentage Testing Position Standing Flexion 70 Extension 0 Rotation Left 60 Rotation Right 60 Lateral Flexion Left 50 Lateral Flexion Right 50 Comments pain during lateral flexion and extension Hip Goniometric Range of Motion Hip Left Active Hip ROM WFL No Flexion w/Knee Flexed 120 Straight Leg Raise 90 Extension 0 Abduction 12 Right Active Hip ROM WFL No Flexion w/Knee Flexed 120 Straight Leg Raise 80 Extension 0 Abduction 10 PT-OP-L Special Tests Start: 09/01/18 14:45 Freq: Status: Active Protocol: Document 09/08/18 11:15 HH (Rec: 09/08/18 12:38 [email or web address]) Special Tests Lumbar Spine Special Tests facet syndrome Test Results +ve Comments R > L Hip Special Tests Scour Test Test Results +ve Comments pain at R hip joint CYNDI Test Results +Ve Comments on R pain at posterior hip PT-OP-M Strength Start: 09/01/18 14:45 Freq: Status: Active Protocol: Document 09/08/18 11:15 HH (Rec: 09/08/18 12:38 [email or web address]) Trunk Strength Trunk Manual Muscle Testing Testing Position Sitting Flexion 3+ Fair+ Extension 3+ Fair+ Rotation Left 3+ Fair+ Rotation Right 3+ Fair+ Lateral Flexion Left 3+ Fair+ Lateral Flexion Right 3+ Fair+ PT-OP-Q Treatments Start: 09/01/18 14:45 Freq: Status: Active Protocol: Document 11/09/18 09:49 HH (Rec: 11/09/18 12:11 [email or web address]) Cardio Equipment Recumbent Bicycle Duration (Minutes) 5 Resistance 3 Therapeutic Exercises Supine Exercises Median n gliding Supine Exercise Name Manual n. gliding Side bilateral Sidelying Exercises open book Side bilateral Equipment Used 10 x2 Comments cues on t/s and c/s rotation Sitting Exercises overhead sling Side bilateral Reps/Minutes 4 mins Comments shd flexion and abduction. seated shd press Side bilateral Reps/Minutes 10 x2 Comments cues on neutral spine Standing Exercises around the [place] Standing Exercise Name shd [place] overhead Side bilateral Equipment Used PVC Reps/Minutes 10 x2 Comments clockwise and anticlockwise direction shd extension Equipment Used PVC pipe Reps/Minutes 10 x 2 Comments cues on neutral spine Manual Therapy Treatment Manual Traction Cervical Details Gentle manual traction Body Position Supine Reps/Duration 6 min Nerve Glides median nerve glide Nerve median Body Position Sitting Comments with cervical lateral flexion, hand against wall PT-OP-T Assessment and Plan Start: 09/01/18 14:45 Freq: Status: Active Protocol: Document 11/09/18 09:49 HH (Rec: 11/09/18 12:11 [email or web address]) Physical Therapy Assessment Goals quick dash Impairment pt scores 36 (20-39 % impairment) Intermediate Goal (LTG) Pt will score 1-19 pts on quickdash to improve her functional neck and shoulder mobility. LTG Duration 10 weeks HEP Impairment pt does not have a HEP Intermediate Goal (LTG) 11/03: pt has not been following HEP for the past 2 weeks due to shingle. Pt will be able to follow HEP independently with proper and safe body mechanics LTG Duration 4 weeks neurological symptoms Impairment intermittent tingling and numbness sensation on both hands Senior Engineering Specialist Goal (LTG) 11/03: pt is able knitt without symptoms for 15-30 mins Pt will not experience tingling/numbness sensation on both hands during knitting/ book reading for more than 30 mins. LTG Duration 4 weeks strength Senior Engineering Specialist Goal (LTG) 11/03 cont in progress Pt will be able to increase 1 MMT grade of B shoulder strength to improver her overhead mobility [ End ] LTG Duration 4 weeks Assessment Summary Assessment Pt showed improved activity tolerance today. Review median nerve glide. Cont shd strengthening and t/s +c/s mobility ex. Physical Therapy Plan Next Visit Focus/Plan Next Note Type Treatment Note Next Visit Plan Check pt's HEP for proper performing. Recommend issuing HEP handout for emerson UE shoulder press upward and shoulder ext, with cane if available. Cont progress overall strengthening without onset of UE numbness/tingling, shd mobility and T/S mobility. LLE strengthening as danay. Next week assess progress towards goals with POC update needed if appropriate.
--- NOTE | 2018-11-13 16:06 | PT.OTN ---
Current Diagnoses Unilateral primary osteoarthritis, unspecified hip (11/13/18) Spondylosis without myelopathy or radiculopathy, site unspecified (11/13/18) Physical Therapy Treatment Note PT-OP-A Visit Information Start: 09/01/18 14:45 Freq: Status: Active Protocol: Document 11/13/18 09:53 LRN (Rec: 11/13/18 10:35 LRN [id number]) Out-Patient Physical Therapy Visit Information Visit Information Visit Type Treatment Note Visit Start Time 09:53 Visit Stop Time 10:33 Total Visit Minutes 40 Visit Number 15 Number of [employer]CHO[employer] N[employer]SING DIRECTOR Visits 0 Evaluation Information Evaluation Date 09/01/18 PT-OP-B Current Condition Start: 09/01/18 14:45 Freq: Status: Active Protocol: Document 09/01/18 13:45 HH (Rec: 09/01/18 15:15 HH [email or web address]) Current Condition History of Current Condition Onset Date >1 year ago Current Complaints B carpel tunnel syndrome, difficulty in readying and knitting History of Current Condition pt presents to clinic today with primary c/o of B carpel tunnel syndrome started more than a year ago. Pt does not know why but symptoms tend to start while she is knitting and reading. She also c/o ongoing R shoulder pain but it does not bother her functional mobility at this point. She decribes it as numbness and tingling sensation at 2nd-4th finger tips and bilateral wrists. symptoms usually get worse with knitting or holding her book for more than 10-15 mins that she has to stop and rest in order to relieve her symptoms. She also stated placing her fingers into extension also relieve her symptoms. In addition, she is now having difficulty in sleeping too with intermittent tingling and numbness sensation. Pt did not have physical therapy before. Prior Treatments and Tests pt did not have any diagnostic imaging done. Future Testing and Treatments Planned Pt is going to have PT evaluation for her LBP and L knee pain next week Treatment Goals Patient/Caregiver Goals 1. able to knit as long as she can without pain 2. able to read more than an hour without symptoms 3. to improve overall shoulder strength Prior Functional Status Baseline Function- ADL's Independent Baseline Function- Mobility Independent Baseline Function- Recreation/Hobbies Pt was able to knit and read for more than an hour Current Functional Impairments (Reported) Functional Limitations- Recreation/ unable to knit and read for Hobbies more than 10 mins PT-OP-C Subjective Start: 09/01/18 14:45 Freq: Status: Active Protocol: Document 11/13/18 09:53 LRN (Rec: 11/13/18 10:35 LRN [id number]) OP-PT Subjective Patient Comments Patient Comments L knee hurts on the recumbent bike to start, but not worsening I am bone on bone. PT-OP-F Manual Assessment Start: 09/01/18 14:45 Freq: Status: Active Protocol: Document 09/08/18 11:15 HH (Rec: 09/08/18 12:38 HH [email or web address]) Manual Assessments Soft Tissue Assessment Soft Tissue Mobility Assessment Significant tenderness to pressure on R paraspinals, R proximal glute max and medius, and piriformis PT-OP-G Mobility & Gait Start: 09/01/18 14:45 Freq: Status: Active Protocol: Document 09/08/18 11:15 HH (Rec: 09/08/18 12:38 HH [email or web address]) OP Gait Assessment Gait Gait Assistance Required: Independent Assistive Devices Assistive Device None Gait Deviations General Gait Pattern Antalgic Decreased Stride Length Decreased Feet Clearance Flexed Trunk Factors Limiting Gait Function Factors Limiting Gait Function Decreased Strength Limited Range of Motion Comments Gait Comments decreased time spent on LLE mid stance and early heel raise. flexed trunk during gait PT-OP-J Posture/Palpation/Skin Start: 09/01/18 14:45 Freq: Status: Active Protocol: Document 09/01/18 13:45 HH (Rec: 09/01/18 15:15 HH [email or web address]) Posture Evaluation Position Standing Evaluation View Lateral Head/C-Spine Posture Forward Head T-Spine Posture Increased Kyphosis L-Spine Posture Flexed Pelvis Posture Anteriorly Tilted PT-OP-K Range of Motion Start: 09/01/18 14:45 Freq: Status: Active Protocol: Document 09/08/18 11:15 HH (Rec: 09/08/18 12:38 HH [email or web address]) Lumbar Spine Range of Motion Lumbar Spine Active Percentage Testing Position Standing Flexion 70 Extension 0 Rotation Left 60 Rotation Right 60 Lateral Flexion Left 50 Lateral Flexion Right 50 Comments pain during lateral flexion and extension Hip Goniometric Range of Motion Hip Left Active Hip ROM WFL No Flexion w/Knee Flexed 120 Straight Leg Raise 90 Extension 0 Abduction 12 Right Active Hip ROM WFL No Flexion w/Knee Flexed 120 Straight Leg Raise 80 Extension 0 Abduction 10 PT-OP-L Special Tests Start: 09/01/18 14:45 Freq: Status: Active Protocol: Document 09/08/18 11:15 HH (Rec: 09/08/18 12:38 HH [email or web address]) Special Tests Lumbar Spine Special Tests facet syndrome Test Results +ve Comments R > L Hip Special Tests Scour Test Test Results +ve Comments pain at R hip joint CYNDI Test Results +Ve Comments on R pain at posterior hip PT-OP-M Strength Start: 09/01/18 14:45 Freq: Status: Active Protocol: Document 09/08/18 11:15 HH (Rec: 09/08/18 12:38 HH [email or web address]) Trunk Strength Trunk Manual Muscle Testing Testing Position Sitting Flexion 3+ Fair+ Extension 3+ Fair+ Rotation Left 3+ Fair+ Rotation Right 3+ Fair+ Lateral Flexion Left 3+ Fair+ Lateral Flexion Right 3+ Fair+ PT-OP-Q Treatments Start: 09/01/18 14:45 Freq: Status: Active Protocol: Document 11/13/18 09:53 LRN (Rec: 11/13/18 10:35 LRN [id number]) Cardio Equipment Recumbent Bicycle Duration (Minutes) 5 Resistance 0 Seat Position 5 Other knee pain that did not increase Therapeutic Exercises Sitting Exercises overhead sling Sitting Exercise Name Alternate Arm Lifts flex, emerson AB Side bilateral Reps/Minutes 4 mins seated shd press Side bilateral Equipment Used Cane Reps/Minutes 15 x2 Comments cues on neutral spine Standing Exercises [place] Standing Exercise Name AROM shld retract/thoracic ext Side bilateral Reps/Minutes 10 x Comments Pt slow to move around the world Standing Exercise Name shd [place] overhead Side bilateral Equipment Used Cane Reps/Minutes 15 x2 Comments clockwise and anticlockwise direction shd extension Equipment Used PVC pipe Reps/Minutes 10 x 2 Comments cues on neutral spine Self-Care/Home Management Treatment Education Patient Education Home Exercise Program Activities Self-Care/Home Management Activities Issued & reviewed HEP: Shoulder press, Circles with arms overhead, Emerson shoulder ext for lat strengthening, shoulder retract/thoracic ext. PT-OP-T Assessment and Plan Start: 09/01/18 14:45 Freq: Status: Active Protocol: Document 11/13/18 09:53 LRN (Rec: 11/13/18 10:35 LRN [id number]) Physical Therapy Assessment Goals neurological symptoms Impairment intermittent tingling and numbness sensation on both hands LTG Duration 11/13/18: Intermittent tingling Progress Towards Goals Progress Comments Neuro Goal: Much improved. HEP: Pt may have need further handouts for HEP. Assessment Summary Assessment Good tolerance to ex. Will need review of new jg ex. Pt may need further therapy for UE strengthening as she reports difficulty opening jars. Physical Therapy Plan Frequency and Duration Frequency of Treatment 2x/Week Duration of Treatment 10 weeks Plan of Care Start Date 09/01/18 Plan of Care End Date 11/19/18 Next Visit Focus/Plan Next Note Type Treatment Note Next Visit Plan Check pt's HEP for proper performing. Recommend issuing HEP handout for emerson UE shoulder press upward and shoulder ext, with cane if available. Cont progress overall strengthening without onset of UE numbness/tingling, shd mobility and T/S mobility. LLE strengthening as danay. Next week assess progress towards goals with POC update needed if appropriate.
--- NOTE | 2018-11-16 10:06 | PT.OTN ---
Current Diagnoses Unilateral primary osteoarthritis, unspecified hip (11/16/18) Spondylosis without myelopathy or radiculopathy, site unspecified (11/16/18) Physical Therapy Treatment Note PT-OP-A Visit Information Start: 09/01/18 14:45 Freq: Status: Active Protocol: Document 11/16/18 08:18 HH (Rec: 11/16/18 10:06 HH [email or web address]) Out-Patient Physical Therapy Visit Information Visit Information Visit Type Treatment Note Visit Start Time 08:18 Visit Stop Time 09:00 Total Visit Minutes 42 Visit Number 16 Number of OUTBOARD MOTORBOAT OPERATOR Visits 0 PT-OP-B Current Condition Start: 09/01/18 14:45 Freq: Status: Active Protocol: Document 09/01/18 13:45 HH (Rec: 09/01/18 15:15 HH [email or web address]) Current Condition History of Current Condition Onset Date >1 year ago Current Complaints B carpel tunnel syndrome, difficulty in readying and knitting History of Current Condition pt presents to clinic today with primary c/o of B carpel tunnel syndrome started more than a year ago. Pt does not know why but symptoms tend to start while she is knitting and reading. She also c/o ongoing R shoulder pain but it does not bother her functional mobility at this point. She decribes it as numbness and tingling sensation at 2nd-4th finger tips and bilateral wrists. symptoms usually get worse with knitting or holding her book for more than 10-15 mins that she has to stop and rest in order to relieve her symptoms. She also stated placing her fingers into extension also relieve her symptoms. In addition, she is now having difficulty in sleeping too with intermittent tingling and numbness sensation. Pt did not have physical therapy before. Prior Treatments and Tests pt did not have any diagnostic imaging done. Future Testing and Treatments Planned Pt is going to have PT evaluation for her LBP and L knee pain next week Treatment Goals Patient/Caregiver Goals 1. able to knit as long as she can without pain 2. able to read more than an hour without symptoms 3. to improve overall shoulder strength Prior Functional Status Baseline Function- ADL's Independent Baseline Function- Mobility Independent Baseline Function- Recreation/Hobbies Pt was able to knit and read for more than an hour Current Functional Impairments (Reported) Functional Limitations- Recreation/ unable to knit and read for Hobbies more than 10 mins PT-OP-C Subjective Start: 09/01/18 14:45 Freq: Status: Active Protocol: Document 11/16/18 08:18 HH (Rec: 11/16/18 10:06 [email or web address]) OP-PT Subjective Patient Comments Patient Comments Im slowly getting better. My shd ex are also getting easier now. And i dont feel as much tingling/numbness on my L hand during knitting. Patient Reported Progress Improving PT-OP-F Manual Assessment Start: 09/01/18 14:45 Freq: Status: Active Protocol: Document 09/08/18 11:15 HH (Rec: 09/08/18 12:38 [email or web address]) Manual Assessments Soft Tissue Assessment Soft Tissue Mobility Assessment Significant tenderness to pressure on R paraspinals, R proximal glute max and medius, and piriformis PT-OP-G Mobility & Gait Start: 09/01/18 14:45 Freq: Status: Active Protocol: Document 09/08/18 11:15 HH (Rec: 09/08/18 12:38 [email or web address]) OP Gait Assessment Gait Gait Assistance Required: Independent Assistive Devices Assistive Device None Gait Deviations General Gait Pattern Antalgic,Decreased Stride Length,Decreased Feet Clearance,Flexed Trunk Factors Limiting Gait Function Factors Limiting Gait Function Decreased Strength,Limited Range of Motion Comments Gait Comments decreased time spent on LLE mid stance and early heel raise. flexed trunk during gait PT-OP-J Posture/Palpation/Skin Start: 09/01/18 14:45 Freq: Status: Active Protocol: Document 09/01/18 13:45 HH (Rec: 09/01/18 15:15 [email or web address]) Posture Evaluation Position Standing Evaluation View Lateral Head/C-Spine Posture Forward Head T-Spine Posture Increased Kyphosis L-Spine Posture Flexed Pelvis Posture Anteriorly Tilted PT-OP-K Range of Motion Start: 09/01/18 14:45 Freq: Status: Active Protocol: Document 09/08/18 11:15 HH (Rec: 09/08/18 12:38 [email or web address]) Lumbar Spine Range of Motion Lumbar Spine Active Percentage Testing Position Standing Flexion 70 Extension 0 Rotation Left 60 Rotation Right 60 Lateral Flexion Left 50 Lateral Flexion Right 50 Comments pain during lateral flexion and extension Hip Goniometric Range of Motion Hip Left Active Hip ROM WFL No Flexion w/Knee Flexed 120 Straight Leg Raise 90 Extension 0 Abduction 12 Right Active Hip ROM WFL No Flexion w/Knee Flexed 120 Straight Leg Raise 80 Extension 0 Abduction 10 PT-OP-L Special Tests Start: 09/01/18 14:45 Freq: Status: Active Protocol: Document 09/08/18 11:15 HH (Rec: 09/08/18 12:38 HH [email or web address]) Special Tests Lumbar Spine Special Tests facet syndrome Test Results +ve Comments R > L Hip Special Tests Scour Test Test Results +ve Comments pain at R hip joint CYNDI Test Results +Ve Comments on R pain at posterior hip PT-OP-M Strength Start: 09/01/18 14:45 Freq: Status: Active Protocol: Document 09/08/18 11:15 HH (Rec: 09/08/18 12:38 [email or web address]) Trunk Strength Trunk Manual Muscle Testing Testing Position Sitting Flexion 3+ Fair+ Extension 3+ Fair+ Rotation Left 3+ Fair+ Rotation Right 3+ Fair+ Lateral Flexion Left 3+ Fair+ Lateral Flexion Right 3+ Fair+ PT-OP-Q Treatments Start: 09/01/18 14:45 Freq: Status: Active Protocol: Document 11/16/18 08:18 HH (Rec: 11/16/18 10:06 [email or web address]) Cardio Equipment Recumbent Bicycle Duration (Minutes) 6 Resistance 0 Seat Position 5 Other reports feeling easier this time Therapeutic Exercises Sitting Exercises seated shoulder [place] Sitting Exercise Name isometric shd [place] at 90 degrees abduction Side bilateral Reps/Minutes 8 secs x 2 forearm pronation and supination Side bilateral Equipment Used 2 lbs DB Comments elbow at 90 degrees seated shd press Side bilateral Equipment Used 1 lb DB Reps/Minutes 6 x 2 Standing Exercises shd ext Equipment Used level 1 band Reps/Minutes 8 x2 Comments cues on extended elbow [place] Standing Exercise Name AROM shld retract/thoracic ext Side bilateral Reps/Minutes 10 x Comments Pt slow to move Scapular rows Resistance level 2 band Reps/Minutes 8 x2 Comments cues on neutral spine Manual Therapy Treatment Joint Mobilizations L tibial IR Grade II Body Position Supine Reps/Duration 10 secs x5 Comments cues on L hip ER 1 Joint R hip distraction Grade II Body Position Supine Reps/Duration 10 secs x 5 Nerve Glides median nerve glide Nerve median Body Position Sitting Comments with cervical lateral flexion, hand against wall PT-OP-T Assessment and Plan Start: 09/01/18 14:45 Freq: Status: Active Protocol: Document 11/16/18 08:18 (Rec: 11/16/18 10:06 [email or web address]) Physical Therapy Assessment Goals quick dash Impairment pt scores 36 (20-39 % impairment) Shingle Shearing Machine Operator Goal (LTG) Pt will score 1-19 pts on quickdash to improve her functional neck and shoulder mobility. score= 29.54 on 11/16/18 LTG Duration 10 weeks HEP Impairment pt does not have a HEP Correction Goal (LTG) 11/03: pt has not been following HEP for the past 2 weeks due to shingle. Pt will be able to follow HEP independently with proper and safe body mechanics LTG Duration 4 weeks neurological symptoms Impairment intermittent tingling and numbness sensation on both hands LTG Duration 11/13/18: Intermittent tingling strength Correction Goal (LTG) 11/03 cont in progress Pt will be able to increase 1 MMT grade of B shoulder strength to improver her overhead mobility [ End ] LTG Duration 4 weeks Assessment Summary Assessment Pt has improved quick dash score down to 29.54. Pt reports increased neural sensitivity during median nerve glide on L than R. tx focused on shd mobility and strengthening with 1lb DB & shd AROM. Pt danay tx well. Physical Therapy Plan Next Visit Focus/Plan Next Note Type Treatment Note Next Visit Plan Cont progress overall strengthening without onset of UE numbness/tingling, shd mobility and T/S mobility. LLE strengthening as danay. Next week assess progress towards goals with POC update needed if appropriate.
--- NOTE | 2018-11-29 19:43 | PT.OTN ---
Current Diagnoses Unilateral primary osteoarthritis, unspecified hip (11/29/18) Spondylosis without myelopathy or radiculopathy, site unspecified (11/29/18) Physical Therapy Treatment Note PT-OP-A Visit Information Start: 09/01/18 14:45 Freq: Status: Active Protocol: Document 11/29/18 16:47 HH (Rec: 11/29/18 19:42 HH [email or web address]) Out-Patient Physical Therapy Visit Information Visit Information Visit Type Discharge Summary Visit Start Time 16:47 Visit Stop Time 17:30 Total Visit Minutes 43 Visit Number 17 Number of SPORTS ANNOUNCER Visits 0 PT-OP-B Current Condition Start: 09/01/18 14:45 Freq: Status: Active Protocol: Document 09/01/18 13:45 HH (Rec: 09/01/18 15:15 HH [email or web address]) Current Condition History of Current Condition Onset Date >1 year ago Current Complaints B carpel tunnel syndrome, difficulty in readying and knitting History of Current Condition pt presents to clinic today with primary c/o of B carpel tunnel syndrome started more than a year ago. Pt does not know why but symptoms tend to start while she is knitting and reading. She also c/o ongoing R shoulder pain but it does not bother her functional mobility at this point. She decribes it as numbness and tingling sensation at 2nd-4th finger tips and bilateral wrists. symptoms usually get worse with knitting or holding her book for more than 10-15 mins that she has to stop and rest in order to relieve her symptoms. She also stated placing her fingers into extension also relieve her symptoms. In addition, she is now having difficulty in sleeping too with intermittent tingling and numbness sensation. Pt did not have physical therapy before. Prior Treatments and Tests pt did not have any diagnostic imaging done. Future Testing and Treatments Planned Pt is going to have PT evaluation for her LBP and L knee pain next week Treatment Goals Patient/Caregiver Goals 1. able to knit as long as she can without pain 2. able to read more than an hour without symptoms 3. to improve overall shoulder strength Prior Functional Status Baseline Function- ADL's Independent Baseline Function- Mobility Independent Baseline Function- Recreation/Hobbies Pt was able to knit and read for more than an hour Current Functional Impairments (Reported) Functional Limitations- Recreation/ unable to knit and read for Hobbies more than 10 mins PT-OP-C Subjective Start: 09/01/18 14:45 Freq: Status: Active Protocol: Document 11/29/18 16:47 HH (Rec: 11/29/18 19:42 HH [email or web address]) OP-PT Subjective Patient Comments Patient Comments Im fully recovered from my shingles now. My hip is getting better and able to manage my pain with ex. My R arm doesnt feel as tingling as before, Left is around the same. I think i am ready for discharge. Patient Reported Progress Improving PT-OP-F Manual Assessment Start: 09/01/18 14:45 Freq: Status: Active Protocol: Document 09/08/18 11:15 HH (Rec: 09/08/18 12:38 [email or web address]) Manual Assessments Soft Tissue Assessment Soft Tissue Mobility Assessment Significant tenderness to pressure on R paraspinals, R proximal glute max and medius, and piriformis PT-OP-G Mobility & Gait Start: 09/01/18 14:45 Freq: Status: Active Protocol: Document 09/08/18 11:15 HH (Rec: 09/08/18 12:38 [email or web address]) OP Gait Assessment Gait Gait Assistance Required: Independent Assistive Devices Assistive Device None Gait Deviations General Gait Pattern Antalgic,Decreased Stride Length,Decreased Feet Clearance,Flexed Trunk Factors Limiting Gait Function Factors Limiting Gait Function Decreased Strength,Limited Range of Motion Comments Gait Comments decreased time spent on LLE mid stance and early heel raise. flexed trunk during gait PT-OP-J Posture/Palpation/Skin Start: 09/01/18 14:45 Freq: Status: Active Protocol: Document 09/01/18 13:45 HH (Rec: 09/01/18 15:15 [email or web address]) Posture Evaluation Position Standing Evaluation View Lateral Head/C-Spine Posture Forward Head T-Spine Posture Increased Kyphosis L-Spine Posture Flexed Pelvis Posture Anteriorly Tilted PT-OP-K Range of Motion Start: 09/01/18 14:45 Freq: Status: Active Protocol: Document 09/08/18 11:15 HH (Rec: 09/08/18 12:38 [email or web address]) Lumbar Spine Range of Motion Lumbar Spine Active Percentage Testing Position Standing Flexion 70 Extension 0 Rotation Left 60 Rotation Right 60 Lateral Flexion Left 50 Lateral Flexion Right 50 Comments pain during lateral flexion and extension Hip Goniometric Range of Motion Hip Left Active Hip ROM WFL No Flexion w/Knee Flexed 120 Straight Leg Raise 90 Extension 0 Abduction 12 Right Active Hip ROM WFL No Flexion w/Knee Flexed 120 Straight Leg Raise 80 Extension 0 Abduction 10 PT-OP-L Special Tests Start: 09/01/18 14:45 Freq: Status: Active Protocol: Document 09/08/18 11:15 HH (Rec: 09/08/18 12:38 [email or web address]) Special Tests Lumbar Spine Special Tests facet syndrome Test Results +ve Comments R > L Hip Special Tests Scour Test Test Results +ve Comments pain at R hip joint CYNDI Test Results +Ve Comments on R pain at posterior hip PT-OP-M Strength Start: 09/01/18 14:45 Freq: Status: Active Protocol: Document 09/08/18 11:15 HH (Rec: 09/08/18 12:38 [email or web address]) Trunk Strength Trunk Manual Muscle Testing Testing Position Sitting Flexion 3+ Fair+ Extension 3+ Fair+ Rotation Left 3+ Fair+ Rotation Right 3+ Fair+ Lateral Flexion Left 3+ Fair+ Lateral Flexion Right 3+ Fair+ PT-OP-Q Treatments Start: 09/01/18 14:45 Freq: Status: Active Protocol: Document 11/29/18 16:47 (Rec: 11/29/18 19:42 [email or web address]) Cardio Equipment Recumbent Bicycle Duration (Minutes) 6 Resistance 5 Seat Position 5 Other no discomfort Therapeutic Exercises Sitting Exercises seated hip abduction Side bilateral Equipment Used yellow band Reps/Minutes 10 x 3 sit to stand Side bilateral Comments cues on knees part overhead sling Sitting Exercise Name Alternate Arm Lifts flex, emerson AB Side bilateral Reps/Minutes 4 mins seated shd press Side bilateral Equipment Used Cane Reps/Minutes 15 x2 Comments cues on neutral spine Standing Exercises sidewalk Side bilateral Equipment Used yellow band Reps/Minutes 10 x2 rouinds around the [place] Standing Exercise Name shd [place] overhead Side bilateral Equipment Used 1lb ball Reps/Minutes 8 x 4 Comments clockwise and anticlockwise direction PT-OP-T Assessment and Plan Start: 09/01/18 14:45 Freq: Status: Active Protocol: Document 11/29/18 16:47 (Rec: 11/29/18 19:42 [email or web address]) Physical Therapy Assessment Goals quick dash C Python Developer Goal (LTG) 11/29/18 Pt scores 29 on quick dash but she is satisfied with her current status HEP C Python Developer Goal (LTG) Goal met.11/29/18 Pt complies to HEP everyday. neurological symptoms C Python Developer Goal (LTG) .11/29/18 Pt reports reduced neurological symptoms on R hand but intermitten numbness on L side. strength C Python Developer Goal (LTG) Goal met.11/29/18 B shoulder strength has improve 1/2 to 1MMT grade. Progress Towards Goals Progress Towards Goals Slow Progress due to Activity Tolerance Assessment Summary Assessment Pt progressed fairly overall, but she is satisfied with her progress even though she had a shingle episode earlier. Pt is now able manage her hip pain and comply to HEP. Review HEP today and d/c from PT. Physical Therapy Plan Discharge Physical Therapy Discharge Reasons Plateau in Progress
== END 2018-11-30 17:12 | disposition home or self-care (01) ==
LOC: PHYS 16:45
PROVIDERS: PCP Family Medicine; Visit Provider Family Medicine
DX: M16.10 Unilateral primary osteoarthritis, unspecified hip (principal); M47.819 Spondylosis without myelopathy or radiculopathy, site unspecified
CPT/HCPCS: 97110; 97140; 97161; 97535

== ENCOUNTER → 2019-02-01 08:21 | Outpatient (CLI) | payer MEDICARE, SELFPAY ==
[2019-02-01 09:21] LABS: Add Manual Diff / Slide Review NO; Basophils Absolute Auto 100 /uL (0-100); Basophils Percent Auto 1.3 % (0-2); Eosinophils Absolute Auto 100 /uL (0-450); Eosinophils Percent Auto 2.4 % (2-4); Hematocrit 35.1 % (36-46); Hemoglobin 12.2 g/dL (12.0-16.0); Lymphocytes Absolute Auto 1500 /uL (1100-4500); Lymphocytes Percent Auto 31.4 % (25-40); Mean Corpuscular HGB Conc 34.6 % (30-36); Mean Corpuscular Hemoglobin 33.2 PG (26-34); Mean Corpuscular Volume 95.8 fL (80-100); Monocytes Absolute Auto 800 /uL (0-900); Monocytes Percent Auto 15.9 % (3-14); Neutrophils Absolute Auto 2400 /uL (1500-7000); Platelet Count 271 X10^3/uL (150-400); Red Blood Cell Count 3.67 X10^6/uL (4.0-5.2); White Blood Cell Count 4.8 X10^3/uL (4.5-11.0)
[2019-02-01 09:22] LABS: Appearance Urine UA SL CLOUDY; Bilirubin Urine UA NEGATIVE (NEGATIVE); Color Urine UA YELLOW; Glucose Urine UA NEGATIVE (Negative); Ketones Urine UA NEGATIVE (NEGATIVE); Leukocyte Esterase Urine UA TRACE (NEGATIVE); Nitrite Urine UA NEGATIVE (Negative); Occult Blood Urine UA 3+ (Negative); Protein Urine UA NEGATIVE (Negative); Urobilinogen Urine UA 0.2 E.U./dL (0.2)
[2019-02-01 09:35] LABS: Alanine Aminotransferase 13 IU/L (<35); Albumin Globulin Ratio 1.2 (1.0-2.8); Alkaline Phosphatase 86 U/L (38-126); Aspartate Aminotransferase 30 IU/L (14-36); BUN Creatinine Ratio 26.7 (6-22); Bilirubin Total 0.8 mg/dL (0.2-1.3); Blood Urea Nitrogen 24 mg/dL (7-17); Calcium 9.4 mg/dL (8.4-10.2); Carbon Dioxide 35 mmol/L (22-32); Chloride 99 mmol/L (98-107); Cholesterol 201 mg/dL (140-199); Estimated Glomerular Filt Rate 59.8 mL/min (>60); Globulin 3.4 g/dL (1.7-4.1); Glucose 87 mg/dL (80-110); HDL Cholesterol 44 mg/dL (40-60); HEMOLYSIS < 15 (0-50); LDL Cholesterol Calculated 138 mg/dL (<100); Potassium 4.1 mmol/L (3.4-5.1); Sodium 139 mmol/L (137-145); Total Protein 7.4 g/dL (6.3-8.2); Triglycerides 95 mg/dL (35-150)
[2019-02-01 09:46] LABS: Bacteria Urine Moderate (10-30); RBC Urine 5-10/HPF (0-5/HPF); Squamous Epithelial Cell Urine 5-10 /HPF (0-5/HPF); WBC Urine 5-10/HPF (0-5/HPF)
[2019-02-01 10:06] LABS: Thyroid Stimulating Hormone 2.06 uIU/mL (0.47-4.68)
== END ==
PROVIDERS: PCP Family Medicine; Visit Provider Family Medicine
DX: E78.5 Hyperlipidemia, unspecified (principal); I10 Essential (primary) hypertension
CPT/HCPCS: 36415; 80053; 80061; 81003; 81015; 84443; 85025

== ENCOUNTER → 2019-04-13 15:22 | Outpatient (CLI) | payer MEDICARE, SELFPAY | PROVIDERS: PCP Nurse Practitioner; Visit Provider Nurse Practitioner | DX: N39.0 Urinary tract infection, site not specified (principal); R31.9 Hematuria, unspecified | CPT/HCPCS: 87086 ==

== ENCOUNTER → 2019-05-15 14:29 | Outpatient (CLI) | payer MEDICARE, SELFPAY ==
[2019-05-15 14:49] LABS: Bacteria Urine None Seen
[2019-05-15 16:33] LABS: Appearance Urine UA CLEAR; Bilirubin Urine UA NEGATIVE (NEGATIVE); Color Urine UA YELLOW; Glucose Urine UA NEGATIVE (Negative); Ketones Urine UA NEGATIVE (NEGATIVE); Leukocyte Esterase Urine UA NEGATIVE (NEGATIVE); Nitrite Urine UA NEGATIVE (Negative); Occult Blood Urine UA 2+ (Negative); Protein Urine UA NEGATIVE (Negative); Specific Gravity Urine UA 1.015 (1.000-1.035); Urobilinogen Urine UA 0.2 E.U./dL (0.2)
[2019-05-15 16:36] LABS: pH Urine UA 7.5 (4.5-8.0)
[2019-05-15 16:55] LABS: RBC Urine 0-1/HPF (0-5/HPF); Squamous Epithelial Cell Urine 0-1 /HPF (0-5/HPF); WBC Urine 0-1/HPF (0-5/HPF)
[2019-05-15 16:56] LABS: Culture Indicated Urine Cult Not Indicated; Urine Comments Microscopic Normal
== END ==
PROVIDERS: PCP Nurse Practitioner; Referring Provider Nurse Practitioner; Visit Provider Nurse Practitioner
DX: N39.0 Urinary tract infection, site not specified (principal)
CPT/HCPCS: 81001

== ENCOUNTER → 2019-07-16 09:10 | Outpatient (CLI) | payer MEDICARE, SELFPAY ==
[2019-07-16 10:30] LABS: Alanine Aminotransferase 12 IU/L (<35); Albumin 4.2 g/dL (3.5-5.0); Albumin Globulin Ratio 1.2 (1.0-2.8); Alkaline Phosphatase 83 U/L (38-126); Aspartate Aminotransferase 29 IU/L (14-36); Bilirubin Total 0.8 mg/dL (0.2-1.3); Bilirubin Unconjugated 0.8 mg/dL (0.0-1.1); Cholesterol 210 mg/dL (140-199); Globulin 3.4 g/dL (1.7-4.1); HDL Cholesterol 53 mg/dL (40-60); HEMOLYSIS < 15 (0-50); LDL Cholesterol Calculated 136 mg/dL (<100); Total Protein 7.6 g/dL (6.3-8.2); Triglycerides 104 mg/dL (35-150)
== END ==
PROVIDERS: PCP Nurse Practitioner; Referring Provider Nurse Practitioner; Visit Provider Nurse Practitioner
DX: E78.5 Hyperlipidemia, unspecified (principal); I10 Essential (primary) hypertension
CPT/HCPCS: 36415; 80061; 80076

== ENCOUNTER → 2019-10-18 08:53 | Outpatient (CLI) | payer MEDICARE, SELFPAY ==
[2019-10-18 10:10] LABS: Add Manual Diff / Slide Review NO; Basophils Absolute Auto 0 /uL (0-100); Basophils Percent Auto 0.8 % (0-2); Eosinophils Absolute Auto 100 /uL (0-450); Eosinophils Percent Auto 1.5 % (2-4); Hematocrit 35.9 % (36-46); Hemoglobin 12.1 g/dL (12.0-16.0); Lymphocytes Absolute Auto 1200 /uL (1100-4500); Lymphocytes Percent Auto 25.2 % (25-40); Mean Corpuscular HGB Conc 33.8 % (30-36); Mean Corpuscular Hemoglobin 32.2 PG (26-34); Mean Corpuscular Volume 95.1 fL (80-100); Monocytes Absolute Auto 700 /uL (0-900); Neutrophils Absolute Auto 2800 /uL (1500-7000); Neutrophils Percent Auto 58.5 % (50-75); Platelet Count 237 X10^3/uL (150-400); Red Blood Cell Count 3.77 X10^6/uL (4.0-5.2); Red Cell Distribution Width 12.9 % (11.6-14.8); White Blood Cell Count 4.8 X10^3/uL (4.5-11.0)
[2019-10-18 10:29] LABS: Carbon Dioxide 35 mmol/L (22-32); Chloride 100 mmol/L (98-107); HEMOLYSIS < 15 (0-50); Potassium 4.3 mmol/L (3.4-5.1); Sodium 138 mmol/L (137-145)
== END ==
PROVIDERS: PCP Nurse Practitioner; Referring Provider Orthopaedic Surgery; Visit Provider Orthopaedic Surgery
DX: Z01.818 Encounter for other preprocedural examination (principal); Z01.812 Encounter for preprocedural laboratory examination
CPT/HCPCS: 36415; 80051; 85025; 93005

== ENCOUNTER → 2019-11-04 13:58 | Outpatient (CLI) | payer MEDICARE, SELFPAY ==
[2019-11-05 17:46] LABS: COVID19 Sendout Not Detected (Not Detect)
== END ==
PROVIDERS: PCP Nurse Practitioner; Visit Provider Physician Assistant
DX: Z11.59 Encounter for screening for other viral diseases (principal)
CPT/HCPCS: 87635

== ENCOUNTER 2019-11-07 09:39 | Day surgery (SDC) | payer MEDICARE, SELFPAY ==
[2019-10-31 09:46] VITALS: BMI 27.4
[2019-11-07] VITALS (13 sets, daily range): BP systolic 99–136; BP diastolic 45–73; PULSE 16–91; RESP 15–84; TEMP 35.9–37.1; O2SAT 95–100; BMI 26.7
--- NOTE | 2019-11-07 | DI.RAD.S_ITS ---
PROCEDURE: XR KNEE LT 1TO2V INDICATIONS: POST OP TECHNIQUE: 2 view(s) of the knee acquired. COMPARISON: [facility], , KNEE 3V RIGHT, 06/27/2008, 9:14. FINDINGS: Expected postoperative alignment of left knee arthroplasty. Hardware appears intact. No fracture. Dictated by: Ramon Hansen M.D. on 11/07/2019 at 13:40 Approved by: Ramon Hansen M.D. on 11/07/2019 at 13:41
[2019-11-07] MEDS: LACTATED RINGERS 1,000 ML 42 ML IV (10:15)
[2019-11-07] MEDS: MIDAZOLAM 2 MG/2 ML VIAL IV (10:57)
[2019-11-07] MEDS: fentaNYL 100 MCG/2 ML INJ 50 MCG IV (10:57)
[2019-11-07] MEDS: CEFAZOLIN 2 GM/100 ML FROZ.PIGGY IV ×2 (11:17→19:01)
[2019-11-07] MEDS: BUPIVACAINE 0.25% W/ EPI 30 ML VIAL 60 ML INJ (12:10)
[2019-11-07] MEDS: LIDOCAINE 1% W/EPI 20 ML INJ (12:11)
[2019-11-07] MEDS: BUPIVACAINE LIPOSOME 266 MG/20 ML VIAL INJ (12:12)
[2019-11-07] MEDS: TRANEXAMIC ACID 1,000 MG VIAL 2000 MG INJ (12:13)
--- NOTE | 2019-11-07 12:14 | PM.PROC.1 ---
Procedures Date/Time Date of procedure: 11/07/19 Time of procedure: 11:00 Nerve Block Time out performed: Yes Location of anesthetic used: Left Adductor Canal (Left thigh) Amount of anesthesia used (mL): 20 (10 ml Ropivacaine 0.5% and 10 ml Lidocaine 2% with epinephrine) Nerve blocks: femoral (Saphenous nerve block via Adductor Canal) Procedure successful: Yes Complications: none Additional comments: Block procedure explained regarding benefits and risks. Questions answered and consent was signed. Routine monitors and oxygen per NC applied and time out performed. IV sedation using fentanyl 50 mcg and midazolam 1 mg was given. Site prepared with chloroprep and sterile drapes. Confirmation of adductor canal obtained using ultrasound technique. A skin wheal with 1% lidocaine and 25g needle done. Using a 100mm 22g sheathed needle, the adductor canal entered and 2ml test dose given with negative results. A total of 20 ml of 50:50 mixture of Ropivacaine 0.5% and Lidocaine 2% with epinephrine injected. Patient tolerated the procedure well without complications and was ready for the operating theatre.
--- NOTE | 2019-11-07 12:51 | P.OP_ITS ---
Operative Date/Time/Diagnoses Date of procedure: 11/07/19 Time of procedure: 12:51 Pre-op diagnosis: Left knee osteoarthritis Post-op diagnosis: same Procedure & Clinicians Procedure: Left total knee arthroplasty Same procedure as scheduled: Yes Indications: The patient presents today for total knee arthroplasty after failure of conservative treatment. The nature of the procedure including the risks and benefits, alternatives, postoperative course and expected outcome were discussed and all questions answered. Consent was obtained. Operative site confirmed and marked. Surgeon: Tony Elliott Machine Driller: Alexander Varghese Anesthesia Type: General, Spinal, Peripheral nerve block and Local Operative Notes Closure Type: primary Specimen(s): none sent Prosthetic devices, grafts, tissues, transplants, or devices: Schuyler Persona TKA 7 CR femoral component, E stemmed tibial component, 11 MC polyethylene tray and 32 mm all poly patella. Applied: implant(s) Estimated Blood Loss (mL): 10 Blood products transfused: none Tourniquet time (min): 60 Procedure in detail: The patient was taken to the operative suite and placed under anesthesia. The patient was given prophylactic antibiotics prior to qureshi rgery. The patient was also given tranexamic acid, 1 g, just prior to surgery for postoperative hemostasis. The lateral knee was prepped and the joint injected with 20 mL of 1% Lidocaine with epinephrine. The knee was then prepped and draped in usual sterile fashion. The leg was exsanguinated with an Esmarch dressing and the tourniquet raised to 250 torr. A 15 cm anterior incision was made. Next a medial trivector arthrotomy was made. The extensor mechanism was marked to ensure accurate repair. Initial exposing dissection was carried out medially and laterally. The knee was then flexed and the intramedullary femoral guide dusty placed. The distal femoral cut was made in 5? of valgus at the +0 position. The femoral size was measured and the appropriate cutting block was then placed and the anterior, posterior and chamfer cuts made. The intramedullary tibial alignment dusty was then placed. The guide was set to remove approximately 10 mm from the less affected lateral side. The proximal tibial cut was then made with an oscillating saw. All meniscus and bony debris was then removed. Posterior femoral osteophytes removed with a curved osteotome. Flexion extension gaps were checked. No specific balancing was required other than routine exposure and removal of osteophytes. The soft tissues were then injected with a combination of 20 mL of half percent Marcaine with epinephrine and 20 mL of Exparel. The trial components were then placed. The knee was then extended and the patellar thickness was measured and a cut made removing approximately 9 mm of bone. The patella was then sized and drilled. Some excess lateral bone was excised and the patellofemoral ligament released. The knee went into full extension and flexion beyond 130?. There was good medial-lateral balance throughout motion. There was slight increased laxity laterally. The knee was also just slightly tighter in flexion than extension. Patellar tracking was excellent. The trial components were removed and the knee was cleansed with Pulsavac irrigation and dried. The final components were cemented with high viscosity vacuum mixed bone cement with antibiotics. The joint was filled with a dilute Betadine solution. The knee was held in extension and the patellar clamped until the cement was adequately cured. The knee was then irrigated. The extensor mechanism was closed with 5 interrupted #1 Vicryl sutures and a running Quill suture at approximately 90 degrees of flexion. The joint was then injected with a combination of 1 g of tranexamic acid and 20 mL of quarter percent Marcaine with epinephrine. The subcutaneous tissue was closed with 2 0 Vicryl. The skin was closed with a zip closure device. An Aquacel dressing and Hira wrap were then applied. The patient tolerated the procedure well and was returned to recovery room in good condition. Complications: none Post-operative Condition: stable Disposition: PACU Plan for aftercare: [facility] Protocol.
[2019-11-07] MEDS: LACTATED RINGERS 1,000 ML 120 ML IV (12:54)
--- NOTE | 2019-11-07 13:40 | SUR.PHASEI ---
Report given to RN upstairs room 212, pt stable VSS, drinking po fluids without problems, denies nausea or pain and able to move legs. Plan to transfer upstairs
[2019-11-07] MEDS: LACTATED RINGERS 1,000 ML 100 ML IV (14:45)
[2019-11-07] MEDS: IBUPROFEN 400 MG TABLET PO ×2 (14:47→20:54)
--- NOTE | 2019-11-07 14:59 | PC.ADMIT ---
Safe hand off from PACU, patient arrived via portable bed. VSS. Denies pain or nausea. Surgical dressing is aquacell-clean/dry/intact w/ brooks wrap. [id number] 16th Unit 2 Admission Note: The patient,Teresa Hernandez,83 y/o, was given written information regarding hospital policies, unit procedures and contact persons. Patient's smoking status: Never smoker. Vital Signs - 8 hr 11/07/19 10:19 11/07/19 13:11 11/07/19 13:14 Temperature 98.8 F 97.8 F Pulse Rate 86 80 83 Respiratory Rate 16 16 15 Blood Pressure 118/68 105/46 L 99/45 L Pulse Oximetry 97 95 97 11/07/19 13:19 11/07/19 13:24 11/07/19 13:29 Temperature Pulse Rate 16 L 83 76 Respiratory Rate 84 H 15 15 Blood Pressure 102/48 L 106/50 L 106/54 L Pulse Oximetry 98 97 99 11/07/19 13:41 11/07/19 14:00 Temperature 96.7 F L Pulse Rate 74 71 Respiratory Rate 16 18 Blood Pressure 116/53 L 119/58 L Pulse Oximetry 99 98
--- NOTE | 2019-11-07 16:18 | SUR.PREOP ---
1045 - Dr Joyner at [facility] to perform left knee nerve block. Monitoring initiated. 2L NC applied by Dr Joyner. 1057 - Versed and fentanyl given as ordered per Dr Joyner orders 1100 - Time out performed. 1105 - Left lower thigh prepped. 1110 - Ropivicaine injected. 1112 - Block completed. Pt remained stable throughout procedure, no adverse reactions noted.
[2019-11-07] MEDS: DOCUSATE 100 MG CAPSULE PO (20:52)
[2019-11-07] MEDS: ACETAMINOPHEN 325 MG TABLET 650 MG PO (20:52)
[2019-11-07] MEDS: ASPIRIN EC 81 MG TABLET PO (20:52)
[2019-11-07] MEDS: CALCIUM CARBONATE 600 MG TABLET PO (20:52)
[2019-11-07] MEDS: SIMVASTATIN 20 MG TABLET PO (20:55)
[2019-11-08] VITALS: BP 129/70; PULSE 80; RESP 18; TEMP 36.5; O2SAT 98
[2019-11-08] MEDS: IBUPROFEN 400 MG TABLET PO ×3 (00:34→08:25)
[2019-11-08] MEDS: LACTATED RINGERS 1,000 ML 100 ML IV (02:29)
[2019-11-08] MEDS: CEFAZOLIN 2 GM/100 ML FROZ.PIGGY IV (02:30)
[2019-11-08 03:48] VITALS: BP 124/65; PULSE 65; RESP 18; TEMP 36.6; O2SAT 100
[2019-11-08] MEDS: ACETAMINOPHEN 325 MG TABLET 650 MG PO (04:08)
--- NOTE | 2019-11-08 04:10 | PC.NURSE ---
Denies left knee pain, but C/O nagging headache. Requested Tylenol 650 mg. administered, will cont. POC & monitor.
[2019-11-08 06:19] LABS: Hematocrit 30.9 % (36-46); Hemoglobin 10.2 g/dL (12.0-16.0)
--- NOTE | 2019-11-08 08:14 | P.PN_ITS ---
Subjective Subjective Date Patient Seen: 11/08/19 Time Patient Seen: 08:14 Interval history: The patient is progressing well. Pain is well controlled. Feels ready for discharge today. Exam Vital Signs (past 8 hours): - 11/08/19 03:48 Temperature 97.9 F Pulse Rate 65 Respiratory Rate 18 Blood Pressure 124/65 Pulse Oximetry 100 Oxygen Delivery Method Room Air Oxygen Flow Rate 0 Narrative Exam Narrative: The dressing is intact. There is expected swelling. The leg is neurovascularly intact. Objective Labs Result Diagrams: 11/08/19 05:35 Labs: Laboratory Results - last 24 hr 11/08/19 05:35 Hgb 10.2 L Hct 30.9 L Assessment & Plan Post-op Postoperative Procedures: Procedures Operation Date: 11/07/19 11:15 Actual Procedures Side Surgeon p Total Knee Arthroplasty Left Tony Elliott MD Postoperative day: 1 Postoperative status narrative: The patient is progressing as expected postop day 1 total knee arthroplasty. Will discharge to home today. Proliance Joint C are Protocol. Daily knee range of motion exercises at home. Will start physical therapy within the next week. May leave dressing on for 7-14 days if intact. May shower over dressing. Follow up in 2 weeks. Time Spent With Patient Time with patient: less than 15 minutes Quality VTE Deep Vein Thrombosis/Pulmonary Embolism Present on Admission: No
[2019-11-08] MEDS: ASPIRIN EC 81 MG TABLET PO (08:25)
[2019-11-08] MEDS: CALCIUM CARBONATE 600 MG TABLET PO (08:25)
[2019-11-08] MEDS: DOCUSATE 100 MG CAPSULE PO (08:26)
[2019-11-08 08:29] VITALS: BP 121/58; PULSE 72
[2019-11-08] MEDS: lisinopriL 20 MG TABLET PO (08:29)
[2019-11-08] MEDS: hydroCHLOROthiazide 25 MG TABLET PO (08:30)
[2019-11-08 09:00] VITALS: BP 121/58; PULSE 72; RESP 18; TEMP 36.2; O2SAT 96
--- NOTE | 2019-11-08 09:18 | PT.IIE ---
Current Diagnoses Unilateral primary osteoarthritis, left knee (11/07/19) Surgery Performed Operation Date: 11/07/19 11:15 Actual Procedures p Total Knee Arthroplasty(Left) - Tony Elliott MD Surgical History (Last Updated 10/31/19 @ 10:08 by Nimco Parr RN) History of knee replacement (Resolved ~2001) Hx of bilateral cataract extraction (Acute) Medical History (Last Updated 10/08/19 @ 13:34 by ADARSH Montiel) Anemia (Resolved Unknown) Arthritis of left knee (Acute) Carotid bruit (Chronic Unknown) Chickenpox (Resolved) Facial skin lesion (Acute) Fractures (Resolved Unknown) Hematuria (Resolved Unknown) Hemorrhoids (Resolved ~2010) Hyperlipemia (Chronic Unknown) Hypertension (Chronic Unknown) Measles (Resolved) Mumps (Resolved) Osteoarthritis (Chronic ~2009) Osteopenia (Chronic ~2016) Post herpetic neuralgia (Acute) Pre-op exam (Acute) Shingles rash (Acute) Skin cancer screening (Acute) Use of cane as ambulatory aid (Acute) Physical Therapy Inpatient Evaluation/Re-Eval M1 PT/OT-IP Prior Functional Status Start: 11/08/19 14:14 Freq: NEEDED Status: Active Protocol: Document 11/08/19 09:18 AB (Rec: 11/08/19 14:22 AB [id number]) Medical Review Prior Functional Status Medical History Reviewed Yes Communication able to make needs known Mobility and Gait pt stated that she is independent with all mobilities and ambulation without AD Social History Household Members none Living Arrangements Apartment/Condo Number of Floors (Floors) One Floor Number of Stairs To Enter/Railing? no steps to enter Home Environment Standard Height Toilet,Walk in Shower,Built-In Shower Seat Home Equipment Front Wheel Walker,Straight Cane,Raised Toilet Seat Without Armrests,Grab Bars In Shower Additional Social History Comment pt stated that her friend will stay with her as long as she needs it has a safety frame around the toilet M2 PT-IP Current Condition Start: 11/08/19 14:14 Freq: NEEDED Status: Active Protocol: Document 11/08/19 09:18 AB (Rec: 11/08/19 14:22 AB [id number]) Physical Therapy Current Condition Current Condition Evaluation Date 11/08/19 Treatment Diagnosis s/p L TKA; difficulty in walking Onset Date 11/07/19 Weight Bearing Status Weight Bearing Status Weight Bear as Tolerated Allowed Weight Bearing Amount (enter % LLE WBAT or #) (%) M3 PT-IP Subjective Start: 11/08/19 14:14 Freq: NEEDED Status: Active Protocol: Document 11/08/19 09:18 AB (Rec: 11/08/19 14:22 AB [id number]) Subjective Physical Therapy Visit Type Type Initial Evaluation Visit Start Time 09:18 Visit Stop Time 09:51 Total Visit Minutes 33 Number of FISCAL AGENT Visits 0 Physical Therapy Visit Comments Patient Comments pt is agreeable to do PT Therapy Pain Assessment Pain When Pain Assessed During Mobility Pain Present Pain Present Pain Reported Location Left Knee Intensity 3 Scale Used Numeric (0 - 10) Pain Management Techniques Apply Cold,Modification of Treatment,Re-positioning, Timing of Activity with Medications M4 PT-IP Mobility and Gait Start: 11/08/19 14:14 Freq: NEEDED Status: Active Protocol: Document 11/08/19 09:18 AB (Rec: 11/08/19 14:22 [id number]) PT-Bed Mobility Assessment Supine to Sit Supine to Sit Standby Assistance Sit to Supine Sit to Supine Standby Assistance PT-Transfer Assessment Sit to and From Stand Sit to and from Stand Standby Assistance,Contact Guard Assistance,1 Person Assistance,Use of Upper Extremities Equipment Transfer Assistive Device Gait Belt,Front Wheeled Walker Orthotic/Prosthetic Devices or Brace: No Transfers Transfer Destination Chair Transfer Technique ambulated using FWW Transfer Ability Level of Assist Standby Assistance,Contact Guard Assistance,1 Person Assistance,Use of Upper Extremities Comments Mobility Comments completed supine <>sit SBA. completed sit <>stand x 3 reps with cues and initial CGA but able to complete with SBA afterwards. ambulated in room CGA ~ 40 ft and agreed to walk in the hallway and completed with initial L quads activation cues but able to control LLE and completed ~ 150 ft CGA and SBA towards end of ambulation. pt agreed to stay up on chair. positioned on chair. ice pack provided. call light and table placed within reach. Gait Assessment Gait Gait Assistance Required: Standby Assistance,Contact Guard Assist Distance (Feet) 150 Able to Maintain Weight Bearing Status Yes During Gait Assistive Devices Assistive Device Gait Belt,Front Wheeled Walker Orthotic/Prosthetic Devices or Brace: No Gait Deviations General Gait Pattern Antalgic,Decreased Stride Length,Decreased Feet Clearance Factors Limiting Gait Function Factors Limiting Gait Function Decreased Activity Tolerance, Decreased Strength,Limited Range of Motion,Pain,Poor Balance,Poor Safety Awareness Comments Gait Comments pls refer to mobility section for details PT-Balance Assessment Sitting Balance and Reactions Static Sitting Balance Ability Normal Dynamic Sitting Balance Ability Normal Standing Balance and Reactions Static Standing Balance Ability Good Dynamic Standing Balance Ability Fair Device Used FWW M5 PT-IP Objective Assessments Start: 11/08/19 14:14 Freq: NEEDED Status: Active Protocol: Document 11/08/19 09:18 AB (Rec: 11/08/19 14:22 AB [id number]) Orientation Orientation/Cognition Level of Alertness Alert Orientation Name,Place,Situation Language Function Ability Hard of Hearing Safety Awareness Decreased Safety Awareness Memory Description Short Term Impaired Gross Range of Motion Lower Extremity ROM Assessment Within Functional Limits Strength Lower Extremity Strength Assessment Left Impaired Hip 4-/5 Knee 3+/5 Coordination Assessment Gross Coordination Gross Coordination WNL Sensation Assessment Sensation Gross Sensation WNL Muscle Tone Muscle Tone WNL Yes M6 PT-IP Treatment Start: 11/08/19 14:14 Freq: NEEDED Status: Active Protocol: Document 11/08/19 09:18 AB (Rec: 11/08/19 14:22 AB [id number]) Physical Therapy Treatment Education Education Provided Precautions,Weight Bearing Status,Post-Op Packet,Safety M7 PT-IP Assessment and Plan Start: 11/08/19 14:14 Freq: NEEDED Status: Active Protocol: Document 11/08/19 09:18 AB (Rec: 11/08/19 14:22 AB [id number]) PT Summary Assessment and Plan Potential Rehabilitation Potential Good Status of Condition at Evaluation Stable Summary Impairments Pain,ROM,Strength,Balance, Coordination,Sensation,Tone, Cognition,Bed Mobility, Transfers,Gait,Activity Tolerance Assessment Summary pt requring SBA to CGA with mobility and plans to go home with her friend to assist her. pt may go home when medically stable. pt lso stated that she is set up for out pt PT. Goals Bed Mobility Goal Independent Transfer Goal Independent,Front Wheeled Walker Gait Goal Independent,Front Wheel Walker Gait Distance 200 Days to Meet Goals 3 Frequency of Treatment Frequency Of Treatment Twice a Day Treatment Plan Physical Therapy Treatment Plan Bed Mobility Training,Transfer Training,Gait Training, Therapeutic Exercise,Balance Retraining,Post Op Education, Discharge Planning,Hot or Cold Pack,Neuromuscular Re-ed, Coordination Retraining,Manual Therapy Recommendations To Nursing Amount of Assist Needed 1 Person Assist Discharge Recommendations PT Discharge Recommendations Home with Assistance, Outpatient PT Transportation Needs at Discharge Private Vehicle
--- NOTE | 2019-11-08 10:36 | CM.DANOTE ---
DCP: Case received, EMR reviewed and met with patient. Introduced self and role. Was able to obtain information from patient regarding her baseline activity status prior to surgery, as well as plans for discharge. DCP assessment completed with information currently available. Patient is an 83 year old female who admitted yesterday morning to the care of the orthopedic team. PCP: Luisa ALTAMIRANO. Payer: confirmed: Medicare/[employer]. Patient came to the hospital via private vehicle for a surgical procedure. She had left total knee arthroplasty. Patient has history of osteoarthritis. Met with patient in her room. She was sitting up in her chair, alert and oriented. She lives alone in [place], but stated that she has a friend, Abby, who will be staying with her for a while to help out. Patient uses a cane when she goes out at baseline. She is independent, and has been driving. P: Patient is to be discharging home today, after she is cleared by P.T. Alison Ruiz RN/Radio Station Engineer
[2019-11-08] MEDS: OXYCODONE IR 5 MG TABLET PO (11:28)
--- NOTE | 2019-11-08 11:40 | PC.NURSE ---
Addendum entered by Lance Hidalgo R.N. 11/08/19 12:21: Discharge instructions and home care handouts reviewed with patient and her friend/caregiver Petrona, they state understanding and have no further questions or concerns. Patient states she has previously picked up her prescriptions and has no further questions about medications for use at home. IV dc'd intact. Patient states she has follow up appointment with surgeons office and with PT scheduled. Original Note: Patient tolerating diet, and drinking water. Voiding without difficulty. Hira wrap with aquacel in place, CDI. Patient up with P.T. this morning and ready for discharge to home. Patient reports a friend will be staying with her and waiting for friend's arrival to review discharge instructions and home care handouts again.
== END 2019-11-08 12:37 | disposition home or self-care (01) ==
LOC: OR 09:41 → AC 09:46
PROVIDERS: PCP Nurse Practitioner; Referring Provider Nurse Practitioner; Visit Provider Orthopaedic Surgery
PROC: 0SRD0JZ Replacement of Left Knee Joint with Synthetic Substitute, Open Approach (ICD-10-PCS; CPT 27447; principal; 2019-11-07 11:15)
DX: M17.12 Unilateral primary osteoarthritis, left knee (principal); I10 Essential (primary) hypertension; E78.5 Hyperlipidemia, unspecified; D64.9 Anemia, unspecified
CPT/HCPCS: 27447; 36415; 73560; 85014; 85018; 97161; C1776; C9290; J0690; J1100; J2250; J2405; J2704; J3010

== ENCOUNTER → 2019-11-19 08:12 | Outpatient (CLI) | payer MEDICARE, SELFPAY ==
[2019-11-07 14:18] VITALS: BMI 26.7
[2019-11-19 08:53] LABS: Appearance Urine UA CLEAR; Bilirubin Urine UA NEGATIVE (NEGATIVE); Color Urine UA YELLOW; Glucose Urine UA NEGATIVE (Negative); Ketones Urine UA NEGATIVE (NEGATIVE); Leukocyte Esterase Urine UA 1+ (NEGATIVE); Nitrite Urine UA NEGATIVE (Negative); Occult Blood Urine UA 3+ (Negative); Protein Urine UA NEGATIVE (Negative); Urobilinogen Urine UA 0.2 E.U./dL (0.2)
[2019-11-19 09:23] LABS: pH Urine UA 7.5 (4.5-8.0)
[2019-11-19 09:39] LABS: Bacteria Urine Few (2-10); RBC Urine 1-5/HPF (0-5/HPF); Squamous Epithelial Cell Urine 10-30 /HPF (0-5/HPF); WBC Urine 10-30/HPF (0-5/HPF)
== END ==
PROVIDERS: PCP Nurse Practitioner; Referring Provider Student in an Organized Health Care Education/Training Program; Visit Provider Student in an Organized Health Care Education/Training Program
DX: R30.0 Dysuria (principal); R35.0 Frequency of micturition
CPT/HCPCS: 81001

== ENCOUNTER → 2019-11-24 10:55 | Outpatient (CLI) | payer MEDICARE, SELFPAY ==
[2019-11-07 14:18] VITALS: BMI 26.7
[2019-11-24 11:03] LABS: WBC Urine None Seen (0-5/HPF)
[2019-11-24 13:18] LABS: Appearance Urine UA CLEAR; Bilirubin Urine UA NEGATIVE (NEGATIVE); Color Urine UA YELLOW; Glucose Urine UA NEGATIVE (Negative); Ketones Urine UA NEGATIVE (NEGATIVE); Leukocyte Esterase Urine UA NEGATIVE (NEGATIVE); Nitrite Urine UA NEGATIVE (Negative); Occult Blood Urine UA 2+ (Negative); Protein Urine UA NEGATIVE (Negative); Specific Gravity Urine UA <=1.005 (1.000-1.035); Urobilinogen Urine UA 0.2 E.U./dL (0.2)
[2019-11-24 14:05] LABS: Bacteria Urine Occasional (0-1); RBC Urine 5-10/HPF (0-5/HPF); Squamous Epithelial Cell Urine 1-5 /HPF (0-5/HPF); Transitional Epi Cells Urine 1-5/HPF (0-5/HPF)
[2019-11-24 14:06] LABS: Culture Indicated Urine Cult Not Indicated
== END ==
PROVIDERS: PCP Nurse Practitioner; Referring Provider Nurse Practitioner; Visit Provider Nurse Practitioner
DX: N39.0 Urinary tract infection, site not specified (principal)
CPT/HCPCS: 81001

== ENCOUNTER 2019-12-16 08:40 | Emergency (ER) | payer MEDICARE, SELFPAY ==
[2019-11-07 14:18] VITALS: BMI 26.7
[2019-12-16] VITALS (12 sets, daily range): BP systolic 121–148; BP diastolic 58–65; PULSE 67–80; RESP 14–36; TEMP 36.5; O2SAT 92–100; BMI 26.6
--- NOTE | 2019-12-16 08:54 | DI.RAD.S_ITS ---
PROCEDURE: XR CHEST 1V INDICATIONS: weakness TECHNIQUE: One view of the chest was acquired. COMPARISON: None. FINDINGS: Surgical changes and devices: None. Lungs and pleura: On this semiupright portable chest examination, no large pneumothorax or large pleural effusions are seen. No focal infiltrates are seen. Mediastinum: The cardiac contours are within normal limits. The aorta demonstrates calcification and tortuosity. Bones and chest wall: Age-appropriate bony degenerative changes are seen. Mild dextroconvex scoliotic curvature is seen. No suspicious bony lesions. Overlying soft tissues appear unremarkable. IMPRESSION: No acute cardiopulmonary process is seen. Dictated by: Braydon Loco M.D. on 12/16/2019 at 8:38 Approved by: Braydon Loco M.D. on 12/16/2019 at 8:39
--- NOTE | 2019-12-16 08:55 | ED.WEAKNESS ---
HPI - Weakness General Chief complaint: Urogenital-Female Stated complaint: fatigue, dark urine, itch all over, LBP Time Seen by Provider: 12/16/19 08:48 Source: patient Mode of arrival: Ambulatory Limitations: no limitations History of Present Illness HPI Narrative: Patient is a 84-year-old female with history of hypertension and left total knee in October presenting today with generalized weakness and fatigue and pruritus. This is been going on for the last 2-3 days. She denies any fever chest pain or cough. She has no nausea vomiting or diarrhea no abdominal pain. She has noticed that her urine is dark it burned once after she urinated and felt like she had to urinate again but that only happened once. She has been increasing her fluid intake. She overall just does not feel well. Her knee however is feeling good and finished physical therapy yesterday. MD Complaint: generalized weakness Onset (ago): day(s) Duration: constant Location: generalized Migration: none Related Data Home Medications Medication Instructions Recorded Confirmed Vitamin D3 See Rx Instructions .ROUTE .COMPLEX 01/02/18 11/07/19 Vitamin B-12 See Rx Instructions .ROUTE .COMPLEX 10/08/19 11/07/19 calcium carbonate 600 mg calcium 600 mg PO BID 10/08/19 11/07/19 (1,500 mg) tablet Previous Rx's Medication Instructions Recorded alendronate 35 mg tablet 35 mg PO QWEEK #4 tab 04/13/19 hydrochlorothiazide 25 mg tablet 25 mg PO QDAY #90 tab 04/13/19 lisinopril 20 mg tablet 20 mg PO Q DAY #90 tab 05/07/19 simvastatin 20 mg tablet 20 mg PO BEDTIME #90 tab 11/01/19 Allergies Allergy/AdvReac Type Severity Reaction Status Date / Time No Known Drug Allergies Allergy Verified 10/08/19 11:10 Review of Systems Review of Systems ROS Unobtainable: All systems reviewed & are unremarkable except as noted in HPI and below Constitutional Constitutional: Denies chills, Denies fever(s), Denies lethargy and Reports weakness Eyes Eyes: Denies change in vision, Denies eye discharge, Denies irritation and Denies loss of vision ENT Ears, Nose, Mouth, and Throat: Denies change in voice, Denies neck pain and Denies sore throat Cardiovascular Cardiovascular: Denies chest pain, Denies irregular heart rhythm, Denies lightheadedness, Denies palpitations, Denies dyspnea, Denies dyspnea on exertion and Denies orthopnea Respiratory Respiratory: Denies cough, Denies dyspnea, Denies dyspnea on exertion and Denies wheezing Gastrointestinal Gastrointestinal: Denies abdominal pain, Denies change in bowel habits, Denies diarrhea, Denies nausea and Denies vomiting Genitourinary Genitourinary: Reports as per HPI Genitourinary: Reports as per HPI Musculoskeletal Musculoskeletal: Denies arthralgias, Reports muscle weakness and Denies neck pain Integumentary/Breasts Skin/Breast: Reports as per HPI, Reports pruritus, Denies erythema and Denies rash Neurologic Neurologic: Denies loss of vision and Reports weakness Endocrine Endocrine: Denies palpitations Allergic/Immunologic Allergic/Immunologic: Denies wheezing Patient History Medical History Anemia (Resolved Unknown) Arthritis of left knee (Acute) Carotid bruit (Chronic Unknown) Chickenpox (Resolved) Facial skin lesion (Acute) Fractures (Resolved Unknown) Hematuria (Resolved Unknown) Hemorrhoids (Resolved ~2010) Hyperlipemia (Chronic Unknown) Hypertension (Chronic Unknown) Measles (Resolved) Mumps (Resolved) Osteoarthritis (Chronic ~2009) Osteopenia (Chronic ~2016) Post herpetic neuralgia (Acute) Pre-op exam (Acute) Shingles rash (Acute) Skin cancer screening (Acute) Use of cane as ambulatory aid (Acute) Surgical History History of knee replacement (Resolved ~2001) Hx of bilateral cataract extraction (Acute) Family History Child Hypertension Father Hypertension Mother High cholesterol Social History household members: none Smoking Status: Never smoker second hand exposure: No alcohol intake: never substance use type: does not use Smoking Status: Never smoker alcohol intake frequency: 0-2 drinks per day Substance Use Type: does not use Exam Initial Vital Signs Initial Vital Signs: Vital Signs Temperature 97.7 F 12/16/19 08:45 Pulse Rate 80 12/16/19 08:45 Respiratory Rate 14 12/16/19 08:45 Blood Pressure 141/63 H 12/16/19 08:45 Pulse Oximetry 100 12/16/19 08:45 GENERAL: Pleasant alert elderly female and in no acute distress. HEENT: Head atraumatic,EOMI, pupils reactive, face symmetric, moist mucous membranes CARDIOVASCULAR: Regular rate and rhythm without murmurs, rubs or gallops. RESPIRATORY: Breath sounds equal bilaterally, no wheezes rales or rhonchi. ABDOMEN: Soft, nontender. Normoactive bowel sounds all 4 quadrants. No guarding or rebound. No right upper quadrant pain EXTREMITIES: Normal range of motion, no clubbing or edema. Neurovascularly intact NEUROLOGICAL: Alert and oriented x4.Normal gait and speech. Cranial nerves II through XII grossly intact. SKIN: Warm, dry, no laceration, no petechiae, no rashes or lesions. No hives or urticaria Course Orders Ordered: ED Orders 12/16/19 08:54 XR chest 1V Stat EKG-12 Lead Stat 12/16/19 09:04 Ictotest Urine Stat Urinalysis and Microscopic Stat Urine Culture Stat 12/16/19 09:16 Complete Blood Count AUTO DIFF Stat Comprehensive Metabolic Panel Stat Lipase Stat Troponin & CK Cardiac Panel Stat 12/16/19 10:02 US abdomen limited Stat 12/16/19 11:41 Hepatitis Acute Panel Stat Vital Signs Vital signs: Vital Signs - 8 hr 12/16/19 08:45 12/16/19 08:47 12/16/19 09:06 Temperature 97.7 F Pulse Rate 80 80 71 Respiratory Rate 14 16 Blood Pressure 141/63 H 141/63 H Pulse Oximetry 100 12/16/19 09:21 12/16/19 09:30 12/16/19 09:31 Temperature Pulse Rate 70 76 74 Respiratory Rate 20 19 24 Blood Pressure 121/58 L 133/59 L Pulse Oximetry 100 100 100 12/16/19 10:00 12/16/19 10:19 12/16/19 10:30 Temperature Pulse Rate 70 70 67 Respiratory Rate 22 18 36 H Blood Pressure 145/63 H 148/64 H 131/65 Pulse Oximetry 100 100 100 12/16/19 11:00 12/16/19 11:39 12/16/19 12:00 Temperature Pulse Rate 67 79 78 Respiratory Rate 17 27 H Blood Pressure 123/60 124/58 L 125/58 L Pulse Oximetry 99 92 99 MDM - Weakness Lab Data Attestation: I reviewed the patient's lab results. Result diagrams: 12/16/19 09:16 12/16/19 09:16 Labs: Lab Results 12/16/19 12/16/19 12/16/19 Range/Units 09:04 09:16 09:16 WBC 6.5 (4.5-11.0) X10^3/uL RBC 3.37 L (4.0-5.2) X10^6/uL Hgb 11.0 L (12.0-16.0) g/dL Hct 32.6 L (36-46) % MCV 96.7 (80-100) fL MCH 32.6 (26-34) PG MCHC 33.7 (30-36) % RDW 14.1 (11.6-14.8) % Plt Count 281 (150-400) X10^3/uL Neut % (Auto) 62.7 (50-75) % Lymph % (Auto) 13.1 L (25-40) % [place] % (Auto) 19.0 H (3-14) % Eos % (Auto) 4.2 H (2-4) % Baso % (Auto) 1.0 (0-2) % Neut # (Auto) 4100 (2247-6715) /uL Lymph # (Auto) 900 L (2748-2745) /uL [place] # (Auto) 1200 H (0-900) /uL Eos # (Auto) 300 (0-450) /uL Baso # (Auto) 100 (0-100) /uL Sodium 133 L (137-145) mmol/L Potassium 3.1 L (3.4-5.1) mmol/L Chloride 93 L (98-107) mmol/L Carbon Dioxide 32 (22-32) mmol/L BUN 15 (7-17) mg/dL Creatinine 0.92 (0.52-1.04) mg/dL Estimated GFR 58.2 L (>60) mL/min BUN/Creatinine Ratio 16.3 (6-22) Glucose 105 (80-110) mg/dL Calcium 9.6 (8.4-10.2) mg/dL Total Bilirubin 3.8 H (0.2-1.3) mg/dL AST 315 H (14-36) IU/L ALT 444 H (<35) IU/L Alkaline Phosphatase 743 H (38-126) U/L Total Creatine Kinase 52 (30-135) U/L CK-MB (CK-2) TNP CK-MB (CK-2) Rel Index TNP Troponin I < 0.012 (0.01-0.034) ng/mL Total Protein 7.4 (6.3-8.2) g/dL Albumin 3.8 (3.5-5.0) g/dL Globulin 3.6 (1.7-4.1) g/dL Albumin/Globulin Ratio 1.1 (1.0-2.8) Lipase 163 (23-300) U/L Urine Color Yellow Urine Appearance Clear Urine pH 7.0 (4.5-8.0) Ur Specific [place] 1.010 (1.000-1.035) Urine Protein Negative (Negative) Urine Glucose (UA) Negative (Negative) g/dL Urine Ketones Negative (NEGATIVE) Urine Occult Blood 3+ H (Negative) Urine Nitrate Negative (Negative) Urine Bilirubin 1+ H (NEGATIVE) Ur Bilirubin Confirm Positive H (Negative) Urine Urobilinogen 1.0 (0.2) E.U./dL Ur Leukocyte Esterase Trace H (NEGATIVE) Urine RBC 1-5/hpf (0-5/HPF) Urine WBC 1-5/hpf (0-5/HPF) Ur Squamous Epith Cells 1-5 /hpf (0-5/HPF) Urine Bacteria Few (2-10) H (None) Ur Culture Indicated? Specimen cultured Imaging Data US - abdomen: Radiologist Impression: PROCEDURE: US ABDOMEN LIMITED INDICATIONS: ELEVATED BILIRUBIN, LFTS TECHNIQUE: Real-time focused scanning was performed of the abdomen, with image documentation. COMPARISON: None. FINDINGS: The liver is normal in size and demonstrates no focal lesions. The liver demonstrates normal echogenicity. The main portal vein is patent and demonstrates normal size. Normal appearing hepatopetal flow can be seen. No findings of gallstones or sludge are seen. The gallbladder wall is not thickened, measuring 3 mm or less. No specific pericholecystic fluid is seen. The sonographic Loera sign is negative. There is no biliary dilatation, the common bile duct measures 6-7 mm. The visualized pancreas is unremarkable. IMPRESSION: The gallbladder demonstrates a normal sonographic appearance. No biliary dilatation is seen. No significant liver abnormality is seen. Dictated by: Braydon Loco M.D. on 12/16/2019 at 9:54 ECG Data Attestation: I personally reviewed and interpreted this ECG as follows: Prior ECG tracings: available for review Interpretation: Normal sinus rhythm rate 73 p.r. interval 189 QRS [address] changes MDM Narrative Medical decision making narrative: The patient has no right upper quadrant pain however bilirubin and LFTs are significantly elevated. She occasionally feels nauseated but has not had any vomiting or diarrhea. Ultrasound does not show any common bile duct dilatation. 11:30 a.m. discussed case with surgery Dr. winslow, unlikely to be common bile duct stone without any pain and no dilatation on ultrasound. Recommends getting hepatitis panel. Spoke with Dr. her bell hospitalist in regards to admission however at this time patient is completely asymptomatic, recommend outpatient follow-up with labs. An return as needed Discharge Plan Departure Patient Disposition: Home Clinical Impression: Elevated liver enzymes Discharge Date/Time: 12/16/19 12:05 Instructions: Gallstones Activity Restrictions/Additional Instructions: *You have been diagnosed with elevated liver enzymes *What to do: At this time you need to call your PCP tomorrow and have her labs rechecked. You are not experiencing symptoms other than itching at this time. Her ultrasound does not show any masses or abnormality. Hepatitis panel is pending but will not be back today. *Continue to take medications as directed AVOID TYLENOL/ACETAMINOPHEN *Follow up with your primary care provider in 2-3 days *Return to ER if you should have INCREASED ABDOMINAL PAIN NAUSEA VOMITING INABILITY TO TOLERATE FLUIDS or any new, worsening or concerning symptoms Prescriptions: No Action Vitamin D3 tablet See Rx Instructions .ROUTE .COMPLEX RF: 0 Vitamin B-12 See Rx Instructions .ROUTE .COMPLEX RF: 0 lisinopril [Prinivil] 20 mg tablet 20 mg PO Q DAY Qty: 90 RF: 3 simvastatin 20 mg tablet 20 mg PO BEDTIME Qty: 90 RF: 1 calcium carbonate 600 mg calcium (1,500 mg) tablet 600 mg PO BID RF: 0 alendronate 35 mg tablet 35 mg PO QWEEK Qty: 4 RF: 11 hydrochlorothiazide 25 mg tablet 25 mg PO QDAY Qty: 90 RF: 3 Referrals: Luisa Pinto ARNP [Primary Care Provider] -
[2019-12-16 09:07] LABS: Appearance Urine UA CLEAR; Bilirubin Urine UA 1+ (NEGATIVE); Color Urine UA YELLOW; Glucose Urine UA NEGATIVE (Negative); Ketones Urine UA NEGATIVE (NEGATIVE); Leukocyte Esterase Urine UA TRACE (NEGATIVE); Nitrite Urine UA NEGATIVE (Negative); Occult Blood Urine UA 3+ (Negative); Protein Urine UA NEGATIVE (Negative)
[2019-12-16 09:26] LABS: Add Manual Diff / Slide Review NO; Basophils Absolute Auto 100 /uL (0-100); Eosinophils Absolute Auto 300 /uL (0-450); Eosinophils Percent Auto 4.2 % (2-4); Hematocrit 32.6 % (36-46); Lymphocytes Absolute Auto 900 /uL (1100-4500); Lymphocytes Percent Auto 13.1 % (25-40); Mean Corpuscular HGB Conc 33.7 % (30-36); Mean Corpuscular Hemoglobin 32.6 PG (26-34); Mean Corpuscular Volume 96.7 fL (80-100); Monocytes Absolute Auto 1200 /uL (0-900); Neutrophils Absolute Auto 4100 /uL (1500-7000); Neutrophils Percent Auto 62.7 % (50-75); Platelet Count 281 X10^3/uL (150-400); Red Blood Cell Count 3.37 X10^6/uL (4.0-5.2); Red Cell Distribution Width 14.1 % (11.6-14.8); White Blood Cell Count 6.5 X10^3/uL (4.5-11.0)
[2019-12-16 09:29] LABS: Bacteria Urine Few (2-10); Culture Indicated Urine Specimen Cultured; Ictotest Urine Positive (Negative); RBC Urine 1-5/HPF (0-5/HPF); Squamous Epithelial Cell Urine 1-5 /HPF (0-5/HPF); WBC Urine 1-5/HPF (0-5/HPF)
[2019-12-16 09:38] LABS: Alanine Aminotransferase 444 IU/L (<35); Albumin 3.8 g/dL (3.5-5.0); Albumin Globulin Ratio 1.1 (1.0-2.8); Alkaline Phosphatase 743 U/L (38-126); Aspartate Aminotransferase 315 IU/L (14-36); BUN Creatinine Ratio 16.3 (6-22); Bilirubin Total 3.8 mg/dL (0.2-1.3); Blood Urea Nitrogen 15 mg/dL (7-17); Calcium 9.6 mg/dL (8.4-10.2); Carbon Dioxide 32 mmol/L (22-32); Chloride 93 mmol/L (98-107); Creatine Kinase 52 U/L (30-135); Estimated Glomerular Filt Rate 58.2 mL/min (>60); Globulin 3.6 g/dL (1.7-4.1); Glucose 105 mg/dL (80-110); HEMOLYSIS < 15 (0-50); Lipase 163 U/L (23-300); Potassium 3.1 mmol/L (3.4-5.1); Sodium 133 mmol/L (137-145); Total Protein 7.4 g/dL (6.3-8.2)
--- NOTE | 2019-12-16 09:47 | PC.NURSE ---
Pt noticing fatigue, all-over itchiness, and dark urine since Tuesday. Had knee surgery in October, states she was told she had blood in urine at that time. No rash noted, no exposure to new foods or meds reported. Takes meds for HTN.
[2019-12-16 09:50] LABS: Troponin I < 0.012 ng/mL (0.01-0.034)
--- NOTE | 2019-12-16 10:02 | DI.US.S_ITS ---
PROCEDURE: US ABDOMEN LIMITED INDICATIONS: ELEVATED BILIRUBIN, LFTS TECHNIQUE: Real-time focused scanning was performed of the abdomen, with image documentation. COMPARISON: None. FINDINGS: The liver is normal in size and demonstrates no focal lesions. The liver demonstrates normal echogenicity. The main portal vein is patent and demonstrates normal size. Normal appearing hepatopetal flow can be seen. No findings of gallstones or sludge are seen. The gallbladder wall is not thickened, measuring 3 mm or less. No specific pericholecystic fluid is seen. The sonographic Loera sign is negative. There is no biliary dilatation, the common bile duct measures 6-7 mm. The visualized pancreas is unremarkable. IMPRESSION: The gallbladder demonstrates a normal sonographic appearance. No biliary dilatation is seen. No significant liver abnormality is seen. Dictated by: Braydon Loco M.D. on 12/16/2019 at 9:54 Approved by: Braydon Loco M.D. on 12/16/2019 at 9:59
[2019-12-17 08:10] LABS: HBsAg Screen Negative (Negative); Hepatitis A Antibody IgM Negative (Negative); Hepatitis B Core Antibody IgM Negative (Negative); Hepatitis C Antibody 0.2 s/co ratio (0.0-0.9)
== END 2019-12-16 12:05 | disposition home or self-care (01) ==
PROVIDERS: Emergency Provider Emergency Medicine; PCP Nurse Practitioner
DX: R74.8 Abnormal levels of other serum enzymes (principal); R53.1 Weakness
CPT/HCPCS: 36415; 71045; 76705; 80053; 80074; 81001; 82550; 83690; 84484; 85025; 87077; 87086; 87186; 93005; 99283; 99284

== ENCOUNTER → 2019-12-21 11:02 | Outpatient (CLI) | payer MEDICARE, SELFPAY ==
[2019-11-07 14:18] VITALS: BMI 26.7
--- NOTE | 2019-12-21 11:36 | DI.CT.S_ITS ---
PROCEDURE: CT ABDOMEN PELVIS W CON INDICATIONS: elevated lfts TECHNIQUE: After the administration of intravenous contrast, 5 mm thick sections acquired from the diaphragm to the symphysis. 5 mm coronal and sagittal reformats were acquired. For radiation dose reduction, the following was used: automated exposure control, adjustment of mA and/or kV according to patient size. COMPARISON: [facility], , CT ABDOMEN/PELVIS W/WO CONTRAST, 11/28/2001, 9:27. [facility], , US ABDOMEN LIMITED, 12/16/2019, 10:37. FINDINGS: Image quality: Excellent. ABDOMEN: Lung bases: Lung bases are clear. Heart size is normal. Concentric thickening of the distal esophagus. Solid organs: Liver is normal in size and enhancement. Gallbladder is normal. Biliary system is non dilated. Pancreas enhances normally. Spleen is normal in size and enhancement. No adrenal nodules. Kidneys demonstrate normal size and enhancement, without hydronephrosis. Peritoneum and bowel: Bowel loops demonstrate normal wall thickness and caliber. There is a large amount of stool in colon. No free fluid or air. Nodes and vessels: No retroperitoneal or mesenteric adenopathy by size criteria. Aorta and inferior vena cava are normal in size. Severe atherosclerosis. Miscellaneous: No ventral hernias. PELVIS: Genitourinary: Bladder wall thickness is normal. There is a 2.6 x 2.0 cm left adnexal cyst. Uterus is unremarkable. The right ovary is not well seen. No pathological free-fluid. Miscellaneous: No inguinal hernias or adenopathy. Bones: No suspicious bony lesions. No vertebral body compression fractures. Severe degenerative changes in lumbar spine. IMPRESSION: 1. A cause for abnormal liver function is not identified on CT. 2. Severe atherosclerosis. 3. A large amount of stool in colon. 4. There is concentric thickening of the distal esophagus. Esophagram or upper endoscopy is suggested for follow-up. 5. A 2.6 x 2.0 cm left adnexal cyst. If clinically indicated, pelvic ultrasound may be obtained. Dictated by: Jose Zambrano M.D. on 12/21/2019 at 13:00 Approved by: Jose Zambrano M.D. on 12/21/2019 at 13:15
[2019-12-21 12:26] LABS: INR 0.9 (0.9-1.3); Prothrombin Time 10.6 SECONDS (10.1-12.7)
[2019-12-21 12:29] LABS: PTT Partial Thromboplastin Tim 30 SECONDS (26.4-36.2)
[2019-12-21 12:52] LABS: Alanine Aminotransferase 158 IU/L (<35); Albumin 3.7 g/dL (3.5-5.0); Albumin Globulin Ratio 1.2 (1.0-2.8); Alkaline Phosphatase 651 U/L (38-126); Aspartate Aminotransferase 69 IU/L (14-36); BUN Creatinine Ratio 18.9 (6-22); Bilirubin Total 1.4 mg/dL (0.2-1.3); Blood Urea Nitrogen 17 mg/dL (7-17); Calcium 9.9 mg/dL (8.4-10.2); Carbon Dioxide 36 mmol/L (22-32); Chloride 93 mmol/L (98-107); Cholesterol 205 mg/dL (140-199); Estimated Glomerular Filt Rate 59.7 mL/min (>60); Gamma Glutamyl Transpeptidase 265 U/L (12-43); Globulin 3.2 g/dL (1.7-4.1); Glucose 89 mg/dL (80-110); HDL Cholesterol 75 mg/dL (40-60); HEMOLYSIS < 15 (0-50); LDL Cholesterol Calculated 111 mg/dL (<100); Lactate Dehydrogenase 424 U/L (313-618); Magnesium 1.8 mg/dL (1.6-2.3); Phosphorous 3.8 mg/dL (2.8-4.1); Potassium 3.7 mmol/L (3.4-5.1); Sodium 134 mmol/L (137-145); Total Protein 6.9 g/dL (6.3-8.2); Triglycerides 93 mg/dL (35-150)
== END ==
PROVIDERS: PCP Nurse Practitioner; Referring Provider Nurse Practitioner; Visit Provider Nurse Practitioner
DX: R79.89 Other specified abnormal findings of blood chemistry (principal); N94.89 Other specified conditions associated with female genital organs and menstrual cycle; R17 Unspecified jaundice; E78.5 Hyperlipidemia, unspecified; L29.9 Pruritus, unspecified; E87.8 Other disorders of electrolyte and fluid balance, not elsewhere classified; I10 Essential (primary) hypertension; Z79.899 Other long term (current) drug therapy
CPT/HCPCS: 36415; 74177; 80053; 80061; 82977; 83615; 83735; 83915; 84100; 85610; 85730; Q9967

== ENCOUNTER → 2020-03-26 09:42 | Outpatient (CLI) | payer MEDICARE, SELFPAY ==
[2019-11-07 14:18] VITALS: BMI 26.7
[2020-03-26 11:03] LABS: Hematocrit 34.9 % (36-46); Hemoglobin 11.7 g/dL (12.0-16.0); Mean Corpuscular HGB Conc 33.6 % (30-36); Mean Corpuscular Hemoglobin 31.4 PG (26-34); Mean Corpuscular Volume 93.4 fL (80-100); Platelet Count 263 X10^3/uL (150-400); Red Blood Cell Count 3.73 X10^6/uL (4.0-5.2); Red Cell Distribution Width 13.5 % (11.6-14.8); White Blood Cell Count 4.6 X10^3/uL (4.5-11.0)
[2020-03-26 11:19] LABS: BUN Creatinine Ratio 29.3 (6-22); Blood Urea Nitrogen 29 mg/dL (7-17); Calcium 9.6 mg/dL (8.4-10.2); Carbon Dioxide 34 mmol/L (22-32); Chloride 100 mmol/L (98-107); Estimated Glomerular Filt Rate 53.4 mL/min (>60); Glucose 111 mg/dL (80-110); HEMOLYSIS < 15 (0-50); Potassium 3.7 mmol/L (3.4-5.1); Sodium 139 mmol/L (137-145)
[2020-03-26 11:20] LABS: Creatinine Urine Random 70.1 mg/dL; Protein (Total) Urine Random 9 mg/dL (0-12); Protein Creatinine Ratio Urine 0.12 GRAM/24H
== END ==
PROVIDERS: PCP Nurse Practitioner; Referring Provider Nurse Practitioner; Visit Provider Student in an Organized Health Care Education/Training Program
DX: N05.9 Unspecified nephritic syndrome with unspecified morphologic changes (principal); D70.9 Neutropenia, unspecified; D63.1 Anemia in chronic kidney disease; R80.9 Proteinuria, unspecified
CPT/HCPCS: 36415; 80048; 82570; 84156; 85027

== ENCOUNTER → 2020-04-09 10:36 | Outpatient (CLI) | payer MEDICARE, SELFPAY ==
[2019-11-07 14:18] VITALS: BMI 26.7
[2020-04-09 11:32] LABS: Appearance Urine UA CLEAR; Bilirubin Urine UA NEGATIVE (NEGATIVE); Color Urine UA YELLOW; Glucose Urine UA NEGATIVE (Negative); Ketones Urine UA NEGATIVE (NEGATIVE); Leukocyte Esterase Urine UA TRACE (NEGATIVE); Nitrite Urine UA NEGATIVE (Negative); Occult Blood Urine UA 3+ (Negative); Protein Urine UA NEGATIVE (Negative); Specific Gravity Urine UA 1.015 (1.000-1.035); Urobilinogen Urine UA 0.2 E.U./dL (0.2)
[2020-04-09 11:50] LABS: Bacteria Urine Few (2-10); Culture Indicated Urine Specimen Cultured; RBC Urine 1-5/HPF (0-5/HPF); Squamous Epithelial Cell Urine 1-5 /HPF (0-5/HPF); WBC Urine 0-1/HPF (0-5/HPF)
[2020-04-10 04:22] LABS: Hepatitis B Core Antibody Negative (Negative); Hepatitis B Surf Ab Qualitativ Non Reactive (.)
[2020-04-10 04:37] LABS: Complement C3 126 mg/dL (82-167)
[2020-04-10 13:30] LABS: DNA (DS) Antibody 1 IU/mL (0-9)
[2020-04-10 17:08] LABS: ANA Screen, IFA Negative (.)
[2020-04-10 18:19] LABS: Hepatitis B Surface Antigen NEGATIVE s/c (NEGATIVE)
[2020-04-10 18:36] LABS: Hep C Virus Ab w/Reflex Quant NEGATIVE s/c (NEGATIVE)
[2020-04-14 12:33] LABS: Cytoplasmic C-ANCA <1:20 titer (Neg:<1:20); Perinuclear P-ANCA <1:20 titer (Neg:<1:20)
== END ==
PROVIDERS: PCP Nurse Practitioner; Referring Provider Student in an Organized Health Care Education/Training Program; Visit Provider Student in an Organized Health Care Education/Training Program
DX: M31.30 Wegener's granulomatosis without renal involvement (principal); M32.10 Systemic lupus erythematosus, organ or system involvement unspecified; D89.89 Other specified disorders involving the immune mechanism, not elsewhere classified; B19.10 Unspecified viral hepatitis B without hepatic coma; B17.10 Acute hepatitis C without hepatic coma; N30.00 Acute cystitis without hematuria; N00.9 Acute nephritic syndrome with unspecified morphologic changes
CPT/HCPCS: 36415; 81001; 83516; 86038; 86160; 86225; 86256; 86704; 86706; 86803; 87086; 87340

== ENCOUNTER → 2020-04-29 09:40 | Outpatient (CLI) | payer MEDICARE, SELFPAY ==
[2019-11-07 14:18] VITALS: BMI 26.7
[2020-04-29 10:28] LABS: Hemoglobin 11.4 g/dL (12.0-16.0)
[2020-04-29 10:35] LABS: BUN Creatinine Ratio 22.5 (6-22); Blood Urea Nitrogen 20 mg/dL (7-17); Calcium 9.1 mg/dL (8.4-10.2); Carbon Dioxide 34 mmol/L (22-32); Chloride 102 mmol/L (98-107); Estimated Glomerular Filt Rate > 60.0 mL/min (>60); Glucose 101 mg/dL (80-110); HEMOLYSIS < 15 (0-50); Potassium 3.6 mmol/L (3.4-5.1); Sodium 139 mmol/L (137-145)
[2020-04-29 10:40] LABS: Appearance Urine UA CLEAR; Bilirubin Urine UA NEGATIVE (NEGATIVE); Color Urine UA YELLOW; Glucose Urine UA NEGATIVE (Negative); Ketones Urine UA NEGATIVE (NEGATIVE); Leukocyte Esterase Urine UA NEGATIVE (NEGATIVE); Nitrite Urine UA NEGATIVE (Negative); Occult Blood Urine UA 3+ (Negative); Protein Urine UA NEGATIVE (Negative); Urobilinogen Urine UA 0.2 E.U./dL (0.2)
[2020-04-29 11:10] LABS: Creatinine Urine Random 121.1 mg/dL; Protein (Total) Urine Random 8 mg/dL (0-12); Protein Creatinine Ratio Urine 0.06 GRAM/24H
[2020-04-29 11:12] LABS: Bacteria Urine Few (2-10); RBC Urine 1-5/HPF (0-5/HPF); Squamous Epithelial Cell Urine 1-5 /HPF (0-5/HPF); WBC Urine 0-1/HPF (0-5/HPF)
[2020-04-29 11:13] LABS: Culture Indicated Urine Cult Not Indicated
[2020-04-30 12:49] LABS: Parathyroid Hormone Int 60 pg/mL (15-65)
== END ==
PROVIDERS: PCP Nurse Practitioner; Referring Provider Student in an Organized Health Care Education/Training Program; Visit Provider Student in an Organized Health Care Education/Training Program
DX: N05.9 Unspecified nephritic syndrome with unspecified morphologic changes (principal); D64.9 Anemia, unspecified; N25.81 Secondary hyperparathyroidism of renal origin; N30.00 Acute cystitis without hematuria; R80.9 Proteinuria, unspecified
CPT/HCPCS: 36415; 80048; 81001; 82570; 83970; 84156; 85014; 85018

== ENCOUNTER → 2020-05-27 09:16 | Outpatient (CLI) | payer MEDICARE, SELFPAY ==
[2019-11-07 14:18] VITALS: BMI 26.7
== END ==
PROVIDERS: PCP Nurse Practitioner; Referring Provider Nurse Practitioner; Visit Provider Nurse Practitioner
DX: M85.852 Other specified disorders of bone density and structure, left thigh (principal); Z78.0 Asymptomatic menopausal state
CPT/HCPCS: 77080

== ENCOUNTER → 2020-05-31 09:31 | Outpatient (CLI) | payer MEDICARE, SELFPAY ==
[2019-11-07 14:18] VITALS: BMI 26.7
[2020-05-31 10:01] LABS: COVID19 -Nasal RAPID Negative (Negative)
== END ==
PROVIDERS: PCP Nurse Practitioner; Visit Provider Nurse Practitioner
DX: Z20.822 Contact with and (suspected) exposure to COVID-19 (principal); R22.1 Localized swelling, mass and lump, neck
CPT/HCPCS: 87070; 87077; 87186; 87635

== ENCOUNTER → 2020-06-05 10:58 | Outpatient (CLI) | payer MEDICARE, SELFPAY ==
[2019-11-07 14:18] VITALS: BMI 26.7
[2020-06-05] MEDS: COVID-19 VACC #1, MRNA(MOD) 100 MCG/0.5 ML VIAL IM (11:08)
== END ==
PROVIDERS: PCP Nurse Practitioner; Visit Provider Internal Medicine
DX: Z23 Encounter for immunization (principal)
CPT/HCPCS: 0011A; 91301

== ENCOUNTER → 2020-06-06 08:29 | Outpatient (CLI) | payer MEDICARE, SELFPAY ==
[2019-11-07 14:18] VITALS: BMI 26.7
[2020-06-06 10:07] LABS: Alanine Aminotransferase 17 IU/L (<35); Albumin 3.7 g/dL (3.5-5.0); Albumin Globulin Ratio 1.1 (1.0-2.8); Alkaline Phosphatase 117 U/L (38-126); Aspartate Aminotransferase 27 IU/L (14-36); BUN Creatinine Ratio 27.2 (6-22); Bilirubin Total 0.3 mg/dL (0.2-1.3); Blood Urea Nitrogen 25 mg/dL (7-17); Calcium 10.4 mg/dL (8.4-10.2); Carbon Dioxide 36 mmol/L (22-32); Chloride 97 mmol/L (98-107); Estimated Glomerular Filt Rate 58.2 mL/min (>60); Globulin 3.3 g/dL (1.7-4.1); Glucose 77 mg/dL (80-110); HEMOLYSIS < 15 (0-50); Magnesium 1.5 mg/dL (1.6-2.3); Potassium 3.4 mmol/L (3.4-5.1); Sodium 138 mmol/L (137-145)
== END ==
PROVIDERS: PCP Nurse Practitioner; Referring Provider Nurse Practitioner; Visit Provider Nurse Practitioner
DX: R79.89 Other specified abnormal findings of blood chemistry (principal); I10 Essential (primary) hypertension; Z79.899 Other long term (current) drug therapy
CPT/HCPCS: 36415; 80053; 83735

== ENCOUNTER → 2020-07-01 08:28 | Outpatient (CLI) | payer MEDICARE, SELFPAY ==
[2019-11-07 14:18] VITALS: BMI 26.7
[2020-07-03 13:36] LABS: H. Pylori Antigen Stool Negative (Negative)
== END ==
PROVIDERS: PCP Nurse Practitioner; Referring Provider Specialist; Visit Provider Specialist
DX: K29.70 Gastritis, unspecified, without bleeding (principal); B96.81 Helicobacter pylori [H. pylori] as the cause of diseases classified elsewhere
CPT/HCPCS: 87338

== ENCOUNTER → 2020-07-03 11:09 | Outpatient (CLI) | payer MEDICARE, SELFPAY ==
[2019-11-07 14:18] VITALS: BMI 26.7
[2020-07-03] MEDS: COVID-19 VACC #2, MRNA(MOD) 100 MCG/0.5 ML VIAL IM (11:26)
== END ==
PROVIDERS: PCP Nurse Practitioner; Visit Provider Internal Medicine
DX: Z23 Encounter for immunization (principal)
CPT/HCPCS: 0012A; 91301

== ENCOUNTER → 2020-07-08 10:42 | Outpatient (CLI) | payer MEDICARE, SELFPAY ==
[2019-11-07 14:18] VITALS: BMI 26.7
[2020-07-08 11:59] LABS: Alanine Aminotransferase 18 IU/L (<35); Albumin Globulin Ratio 1.1 (1.0-2.8); Alkaline Phosphatase 119 U/L (38-126); Aspartate Aminotransferase 36 IU/L (14-36); BUN Creatinine Ratio 24.5 (6-22); Bilirubin Total 0.4 mg/dL (0.2-1.3); Blood Urea Nitrogen 23 mg/dL (7-17); Calcium 10.1 mg/dL (8.4-10.2); Carbon Dioxide 34 mmol/L (22-32); Chloride 97 mmol/L (98-107); Estimated Glomerular Filt Rate 56.7 mL/min (>60); Globulin 3.5 g/dL (1.7-4.1); Glucose 86 mg/dL (80-110); HEMOLYSIS < 15 (0-50); Magnesium 1.9 mg/dL (1.6-2.3); Potassium 3.5 mmol/L (3.4-5.1); Sodium 138 mmol/L (137-145); Total Protein 7.5 g/dL (6.3-8.2)
== END ==
PROVIDERS: PCP Nurse Practitioner; Referring Provider Nurse Practitioner; Visit Provider Nurse Practitioner
DX: E86.0 Dehydration (principal); I10 Essential (primary) hypertension; R79.89 Other specified abnormal findings of blood chemistry; R79.0 Abnormal level of blood mineral
CPT/HCPCS: 36415; 80053; 83735

== ENCOUNTER → 2020-07-09 12:08 | Outpatient (CLI) | payer MEDICARE, SELFPAY ==
[2019-11-07 14:18] VITALS: BMI 26.7
--- NOTE | 2020-07-09 12:10 | DI.MRI.S_ITS ---
PROCEDURE: MR LUMBAR SPINE WO CON INDICATIONS: Spinal stenosis, lumbar region without neurogenic TECHNIQUE: Noncontrast sagittal T1 spin echo and T2 fast echo, sagittal STIR, axial T1 and T2 fast spin echo through the lumbar spine. In cases with scoliosis, additional coronal T2 fast spin echo may be performed. COMPARISON: [facility] [place], CR, XR LUMBAR SPINE FLEXION EXTENSION, 06/10/2020, 8:46. [facility], CT, CT ABDOMEN PELVIS W CON, 12/21/2019, 12:15. FINDINGS: Image quality: This examination is limited by involuntary motion artifact. Alignment and Curvature: There is mild retrolisthesis seen at L1-L2 and L2-L3. Minimal anterolisthesis is seen at L4-L5. Mild levoconvex scoliotic curvature is noted. Bone Marrow: Marrow is of normal overall signal. No acute vertebral body compression fractures. Spinal Cord: Conus medullaris terminates at the L1 level. Visualized cord demonstrates normal signal and size. Paraspinous Soft Tissues: No paravertebral masses. T12-L1: Moderate loss of disc height is seen. Loss of disc signal is seen. Bridging endplate osteophytes are seen. Mild to moderate disc bulge is seen, with a central disc protrusion. Mild facet joint hypertrophy is seen. There is moderate right-sided and mild left-sided neural foraminal narrowing seen. Mild to moderate central canal narrowing can be seen. L1-L2: At least moderate loss of disc height and disc signal can be seen. Moderate disc bulge is seen, which is eccentric to the right. There is a central disc protrusion. Bridging endplate osteophytes are seen. At least moderate facet hypertrophy can be seen. There is at least moderate left-sided and moderate to severe right-sided neural foraminal narrowing seen. Moderate central canal narrowing is seen. L2-L3: Moderate to severe loss of disc height and disc signal can be seen. Reactive marrow endplate changes are seen, which demonstrate mixed T1 weighted and T2-weighted signal, and are attributed to a combination of edema and fatty metaplasia (Modic type I and Modic type II changes). At least moderate disc bulge is seen. Moderate facet joint hypertrophy is seen. There is moderate to severe bilateral neural foraminal narrowing seen. There is a degree of compression seen upon the exiting nerve roots. Moderate central canal narrowing is seen. L3-L4: Mild loss of disc height is seen. Loss of disc signal is seen. Mild to moderate disc bulge is seen, which is eccentric to the left. At least moderate facet hypertrophy is seen at this level. Associated hypertrophy of the ligamentum flavum can be seen. There is moderate right-sided and moderate to severe left-sided neural foraminal narrowing seen. There is a degree of compression seen upon the exiting nerve roots. Moderate to severe central canal narrowing is seen. L4-L5: Mild loss of disc height is seen. Loss of disc signal is seen. Moderate disc bulge is seen, which is eccentric to the left. There is moderate right-sided and moderate to severe left-sided facet hypertrophy seen. There is moderate to severe bilateral neural foraminal narrowing seen, left worse than right. There is a degree of compression seen upon the exiting nerve roots. At least moderate central canal narrowing is seen. L5-S1: The disc height is well-preserved. Loss of disc signal is seen at this level. At least moderate disc bulge is seen. Moderate facet hypertrophy is seen, right worse than left. There is [id number] right-sided and mild left-sided neural foraminal narrowing seen. Minimal central canal narrowing is seen. IMPRESSION: Multiple levels of lumbar spine degenerative change are seen, which are worst at L1-L2 and L2-L3. Dictated by: Braydon Loco M.D. on 07/09/2020 at 13:37 Approved by: Braydon Loco M.D. on 07/09/2020 at 13:45
== END ==
PROVIDERS: PCP Nurse Practitioner; Referring Provider Physical Medicine & Rehabilitation; Visit Provider Physical Medicine & Rehabilitation
DX: M48.061 Spinal stenosis, lumbar region without neurogenic claudication (principal); M47.816 Spondylosis without myelopathy or radiculopathy, lumbar region; M47.817 Spondylosis without myelopathy or radiculopathy, lumbosacral region
CPT/HCPCS: 72148

== ENCOUNTER → 2020-12-19 09:49 | Outpatient (CLI) | payer MEDICARE, SELFPAY ==
[2019-11-07 14:18] VITALS: BMI 26.7
[2020-12-19 11:49] LABS: Hematocrit 36.5 % (36-46); Hemoglobin 12.2 g/dL (12.0-16.0)
[2020-12-19 11:52] LABS: BUN Creatinine Ratio 23.6 (6-22); Blood Urea Nitrogen 21 mg/dL (7-17); Carbon Dioxide 36 mmol/L (22-32); Chloride 99 mmol/L (98-107); Estimated Glomerular Filt Rate > 60.0 mL/min (>60); Glucose 60 mg/dL (80-110); HEMOLYSIS < 15 (0-50); Potassium 3.6 mmol/L (3.4-5.1); Sodium 140 mmol/L (137-145)
[2020-12-19 12:41] LABS: Creatinine Urine Random 107.8 mg/dL
[2020-12-19 12:45] LABS: Protein (Total) Urine Random < 5 mg/dL (0-12); Protein Creatinine Ratio Urine 0.04 GRAM/24H
[2020-12-20 10:25] LABS: Parathyroid Hormone Int 32 pg/mL (15-65)
== END ==
PROVIDERS: PCP Nurse Practitioner; Referring Provider Student in an Organized Health Care Education/Training Program; Visit Provider Student in an Organized Health Care Education/Training Program
DX: N05.9 Unspecified nephritic syndrome with unspecified morphologic changes (principal); D64.9 Anemia, unspecified; N25.81 Secondary hyperparathyroidism of renal origin; R80.9 Proteinuria, unspecified
CPT/HCPCS: 36415; 80048; 82570; 83970; 84156; 85014; 85018

== ENCOUNTER → 2021-02-25 10:30 | Outpatient (CLI) | payer MEDICARE, SELFPAY ==
[2019-11-07 14:18] VITALS: BMI 26.7
== END ==
PROVIDERS: PCP Nurse Practitioner; Visit Provider Physician Assistant
DX: R30.0 Dysuria (principal)
CPT/HCPCS: 87086

== ENCOUNTER → 2021-06-08 10:26 | Outpatient (CLI) | payer MEDICARE, SELFPAY ==
[2019-11-07 14:18] VITALS: BMI 26.7
[2021-06-08 12:11] LABS: Appearance Urine UA CLEAR; Bilirubin Urine UA NEGATIVE (NEGATIVE); Color Urine UA YELLOW; Glucose Urine UA NEGATIVE (Negative); Ketones Urine UA NEGATIVE (NEGATIVE); Leukocyte Esterase Urine UA TRACE (NEGATIVE); Nitrite Urine UA NEGATIVE (Negative); Occult Blood Urine UA 3+ (Negative); Protein Urine UA NEGATIVE (Negative); Urobilinogen Urine UA 0.2 E.U./dL (0.2)
[2021-06-08 12:32] LABS: RBC Urine 5-10/HPF (0-5/HPF); WBC Urine 1-5/HPF (0-5/HPF)
[2021-06-08 12:33] LABS: Bacteria Urine Moderate (10-30); Squamous Epithelial Cell Urine 10-30 /HPF (0-5/HPF)
== END ==
PROVIDERS: PCP Nurse Practitioner; Visit Provider Nurse Practitioner
DX: R31.9 Hematuria, unspecified (principal); Z87.440 Personal history of urinary (tract) infections; R35.0 Frequency of micturition
CPT/HCPCS: 81001; 87086

== ENCOUNTER → 2021-06-16 12:40 | Outpatient (CLI) | payer MEDICARE, SELFPAY ==
[2019-11-07 14:18] VITALS: BMI 26.7
--- NOTE | 2021-06-16 12:41 | DI.RAD.S_ITS ---
PROCEDURE: XR CHEST 2V INDICATIONS: chest congestion TECHNIQUE: 2 views of the chest were acquired. COMPARISON: [facility], CR, XR CHEST 1V, 12/16/2019, 9:09. FINDINGS: Surgical changes and devices: None. Lungs and pleura: Lungs are clear, yet hyperexpanded. No pleural effusions or pneumothorax. Mediastinum: The cardiac contours are within normal limits. The aorta demonstrates calcification and tortuosity. Bones and chest wall: No suspicious bony abnormalities. S-shaped scoliotic curvature is seen. Age-appropriate bony degenerative changes are seen. Soft tissues appear unremarkable. IMPRESSION: Hyperexpanded lungs, without an acute cardiopulmonary process identified. No focal infiltrates are seen. Dictated by: Braydon Loco M.D. on 06/16/2021 at 12:07 Approved by: Braydon Loco M.D. on 06/16/2021 at 12:08
== END ==
PROVIDERS: PCP Nurse Practitioner; Referring Provider Nurse Practitioner; Visit Provider Nurse Practitioner
DX: R09.89 Other specified symptoms and signs involving the circulatory and respiratory systems (principal)
CPT/HCPCS: 71046

== ENCOUNTER → 2021-07-06 11:37 | Outpatient (CLI) | payer MEDICARE, SELFPAY ==
[2019-11-07 14:18] VITALS: BMI 26.7
[2021-07-06 12:15] LABS: Appearance Urine UA CLEAR; Bilirubin Urine UA NEGATIVE (NEGATIVE); Color Urine UA YELLOW; Glucose Urine UA NEGATIVE (Negative); Ketones Urine UA NEGATIVE (NEGATIVE); Leukocyte Esterase Urine UA NEGATIVE (NEGATIVE); Nitrite Urine UA NEGATIVE (Negative); Occult Blood Urine UA 2+ (Negative); Protein Urine UA NEGATIVE (Negative); Specific Gravity Urine UA 1.015 (1.000-1.035); Urobilinogen Urine UA 0.2 E.U./dL (0.2)
[2021-07-06 12:16] LABS: pH Urine UA 7.5 (4.5-8.0)
[2021-07-06 12:22] LABS: Bacteria Urine None Seen; Culture Indicated Urine Cult Not Indicated; RBC Urine 1-5/HPF (0-5/HPF); WBC Urine None Seen (0-5/HPF)
== END ==
PROVIDERS: PCP Nurse Practitioner; Referring Provider Nurse Practitioner; Visit Provider Nurse Practitioner
DX: N30.01 Acute cystitis with hematuria (principal)
CPT/HCPCS: 81001

== ENCOUNTER → 2021-08-03 13:27 | Outpatient (CLI) | payer MEDICARE, SELFPAY ==
[2019-11-07 14:18] VITALS: BMI 26.7
[2021-08-03 14:53] LABS: BUN Creatinine Ratio 27.5 (6-22); Blood Urea Nitrogen 30 mg/dL (7-17); Calcium 10.2 mg/dL (8.4-10.2); Carbon Dioxide 35 mmol/L (22-32); Chloride 99 mmol/L (98-107); Estimated Glomerular Filt Rate 50 mL/min (>60); Glucose 98 mg/dL (80-110); HEMOLYSIS < 15 (0-50); Potassium 4.2 mmol/L (3.4-5.1); Sodium 139 mmol/L (137-145)
== END ==
PROVIDERS: PCP Nurse Practitioner; Referring Provider Urology; Visit Provider Urology
DX: R31.21 Asymptomatic microscopic hematuria (principal); N39.0 Urinary tract infection, site not specified; R79.89 Other specified abnormal findings of blood chemistry; Z77.22 Contact with and (suspected) exposure to environmental tobacco smoke (acute) (chronic)
CPT/HCPCS: 36415; 80048; 81002; 99214

== ENCOUNTER → 2021-08-10 09:27 | Outpatient (CLI) | payer MEDICARE, SELFPAY ==
[2019-11-07 14:18] VITALS: BMI 26.7
[2021-08-10 10:17] LABS: Hematocrit 34.8 % (36-46); Hemoglobin 11.9 g/dL (12.0-16.0)
[2021-08-10 11:07] LABS: Creatinine Urine Random 181.3 mg/dL
[2021-08-10 11:09] LABS: Protein (Total) Urine Random < 5 mg/dL (0-12); Protein Creatinine Ratio Urine 0.02 GRAM/24H
[2021-08-10 11:14] LABS: BUN Creatinine Ratio 22.5 (6-22); Blood Urea Nitrogen 23 mg/dL (7-17); Calcium 9.2 mg/dL (8.4-10.2); Carbon Dioxide 32 mmol/L (22-32); Chloride 101 mmol/L (98-107); Estimated Glomerular Filt Rate 54 mL/min (>60); Glucose 66 mg/dL (80-110); HEMOLYSIS < 15 (0-50); Potassium 3.7 mmol/L (3.4-5.1); Sodium 140 mmol/L (137-145)
[2021-08-11 05:52] LABS: Parathyroid Hormone Int 48 pg/mL (15-65)
== END ==
PROVIDERS: PCP Nurse Practitioner; Referring Provider Student in an Organized Health Care Education/Training Program; Visit Provider Student in an Organized Health Care Education/Training Program
DX: N05.9 Unspecified nephritic syndrome with unspecified morphologic changes (principal); D64.9 Anemia, unspecified; N25.81 Secondary hyperparathyroidism of renal origin; R80.9 Proteinuria, unspecified
CPT/HCPCS: 36415; 80048; 82570; 83970; 84156; 85014; 85018

== ENCOUNTER → 2021-08-21 08:26 | Outpatient (CLI) | payer MEDICARE, SELFPAY ==
[2019-11-07 14:18] VITALS: BMI 26.7
--- NOTE | 2021-08-21 08:28 | DI.CT.S_ITS ---
PROCEDURE: CT ABDOMEN PELVIS WO/W CON INDICATIONS: Asymptomatic microscopic hematuria TECHNIQUE: Optional 5 mm thick noncontrast images acquired from the diaphragm to the symphysis pubis. After the administration of intravenous contrast, 5 mm thick images acquired from the diaphragm to the symphysis pubis after a 10-minute delay. 2 mm thick coronal and sagittal reformats were then performed of the kidneys and ureters. For radiation dose reduction, the following was used: automated exposure control, adjustment of mA and/or kV according to patient size. COMPARISON: None. FINDINGS: Lower thorax: The lung bases are clear. Heart size normal. No hiatal hernia. Liver: Normal in size and attenuation. No contour deformity present. Biliary system: No calcified cholelithiasis or pericholecystic inflammation. No intra or extrahepatic bile duct dilatation. Pancreas: Unremarkable without mass or inflammation evident. Spleen: Normal in size and density. Adrenals: Normal morphology and density. Reproductive system: Unremarkable as visualized. Urinary system: Normal renal size and attenuation. No renal calculi, hydronephrosis, or solid mass present. Urinary bladder nondistended but unremarkable. Gastrointestinal system: The bowel is unremarkable without evidence of bowel obstruction or inflammation. The stomach appears unremarkable. Appendix: No findings to suggest acute appendicitis. Peritoneal spaces: No mesenteric or retroperitoneal adenopathy. No free air. No free fluid. Vasculature: Aortic atherosclerotic vascular calcification noted without evidence of aneurysm. Dense small vessel and splenic artery vascular calcification present as well Abdominal wall: Abdominal wall intact without evidence of ventral or inguinal hernias. Musculoskeletal: Normal bone mineralization. Degenerative disc disease and arthropathy noted in lower lumbar spine. Arthritic changes involve both hips, right greater than left. No acute fractures. IMPRESSION: 1. No acute CT findings in the abdomen and pelvis. No evidence of renal calculi, hydronephrosis or obstructive uropathy. Unremarkable bladder. 2. Chronic findings include dense aortic atherosclerotic and small vessel vascular calcification as well as multilevel degenerative disc disease and arthropathy. Approved by: Robbin Whitaker M.D. on 08/21/2021 at 10:57
== END ==
PROVIDERS: PCP Nurse Practitioner; Referring Provider Urology; Visit Provider Urology
DX: R31.21 Asymptomatic microscopic hematuria (principal); N39.0 Urinary tract infection, site not specified; I70.0 Atherosclerosis of aorta; M51.36 Other intervertebral disc degeneration, lumbar region; M47.816 Spondylosis without myelopathy or radiculopathy, lumbar region
CPT/HCPCS: 74178; Q9967

== ENCOUNTER → 2021-11-08 09:58 | Outpatient (CLI) | payer MEDICARE, SELFPAY ==
[2019-11-07 14:18] VITALS: BMI 26.7
--- NOTE | 2021-11-08 10:10 | DI.RAD.S_ITS ---
PROCEDURE: XR ANKLE LT MIN 3V INDICATIONS: left ankle injury TECHNIQUE: 3 views of the ankle were acquired. COMPARISON: None. FINDINGS: Bones: No fractures or dislocations. Ankle mortise is normally aligned. No suspicious bony lesions. Generalized decrease in osseous mineralization noted. Small ossicle noted associated with the distal fibular tip appears well-corticated Soft tissues: No tibiotalar joint effusion. Achilles tendon appears normal. Lateral soft tissue swelling. Diffuse atherosclerotic vascular calcification noted. IMPRESSION: Lateral soft tissue swelling. Distal fibular ossicle Approved by: Robbin Whitaker M.D. on 11/08/2021 at 10:49
== END ==
PROVIDERS: PCP Nurse Practitioner; Referring Provider Nurse Practitioner Family; Visit Provider Nurse Practitioner Family
DX: S96.912A Strain of unspecified muscle and tendon at ankle and foot level, left foot, initial encounter (principal); M79.89 Other specified soft tissue disorders; X58.XXXA Exposure to other specified factors, initial encounter
CPT/HCPCS: 73610

== ENCOUNTER → 2021-12-04 11:44 | Outpatient (CLI) | payer MEDICARE, SELFPAY ==
[2019-11-07 14:18] VITALS: BMI 26.7
[2021-12-04 12:17] LABS: Hematocrit 34.6 % (36-46); Hemoglobin 11.8 g/dL (12.0-16.0)
[2021-12-04 12:33] LABS: BUN Creatinine Ratio 24.2 (6-22); Blood Urea Nitrogen 23 mg/dL (7-17); Calcium 9.4 mg/dL (8.4-10.2); Carbon Dioxide 32 mmol/L (22-32); Chloride 98 mmol/L (98-107); Estimated Glomerular Filt Rate 59 mL/min (>60); Glucose 93 mg/dL (80-110); HEMOLYSIS < 15 (0-50); Potassium 3.8 mmol/L (3.4-5.1); Sodium 139 mmol/L (137-145)
[2021-12-04 12:38] LABS: Creatinine Urine Random 103.6 mg/dL
[2021-12-04 12:39] LABS: Protein (Total) Urine Random < 5 mg/dL (0-12); Protein Creatinine Ratio Urine 0.04 GRAM/24H
[2021-12-05 08:16] LABS: Parathyroid Hormone Int 39 pg/mL (15-65)
== END ==
PROVIDERS: PCP Nurse Practitioner; Referring Provider Student in an Organized Health Care Education/Training Program; Visit Provider Student in an Organized Health Care Education/Training Program
DX: N05.9 Unspecified nephritic syndrome with unspecified morphologic changes (principal); D64.9 Anemia, unspecified; N25.81 Secondary hyperparathyroidism of renal origin; R80.9 Proteinuria, unspecified
CPT/HCPCS: 36415; 80048; 82570; 83970; 84156; 85014; 85018

== ENCOUNTER → 2022-01-29 11:54 | Outpatient (CLI) | payer MEDICARE, SELFPAY ==
[2019-11-07 14:18] VITALS: BMI 26.7
[2022-01-29 14:29] LABS: Appearance Urine UA SL CLOUDY; Bilirubin Urine UA NEGATIVE (NEGATIVE); Glucose Urine UA TRACE g/dL (Negative); Ketones Urine UA NEGATIVE (NEGATIVE); Leukocyte Esterase Urine UA 2+ (NEGATIVE); Nitrite Urine UA POSITIVE (Negative); Occult Blood Urine UA 2+ (Negative); Protein Urine UA 2+ (Negative); Specific Gravity Urine UA 1.015 (1.000-1.035)
[2022-01-29 14:42] LABS: Color Urine UA Dark Yellow
[2022-01-29 14:46] LABS: RBC Urine 5-10/HPF (0-5/HPF); Squamous Epithelial Cell Urine 1-5 /HPF (0-5/HPF); WBC Urine 30-100/HPF (0-5/HPF)
[2022-01-29 14:47] LABS: Amorphous Sediment Urine 2+; Bacteria Urine Many (>30); Culture Indicated Urine Specimen Cultured; Mucus Urine 1+ (Negative)
== END ==
PROVIDERS: PCP Nurse Practitioner; Referring Provider Nurse Practitioner; Visit Provider Nurse Practitioner
DX: R30.0 Dysuria (principal)
CPT/HCPCS: 81001; 87077; 87086; 87186

== ENCOUNTER → 2022-02-27 07:50 | Outpatient (CLI) | payer MEDICARE, SELFPAY ==
[2019-11-07 14:18] VITALS: BMI 26.7
== END ==
PROVIDERS: PCP Nurse Practitioner; Visit Provider Nurse Practitioner Family
DX: N39.0 Urinary tract infection, site not specified (principal); N89.8 Other specified noninflammatory disorders of vagina
CPT/HCPCS: 87077; 87086; 87186; 87210

== ENCOUNTER 2022-05-30 09:16 | Emergency (ER) | payer MEDICARE, SELFPAY ==
[2019-11-07 14:18] VITALS: BMI 26.7
--- NOTE | 2022-05-30 09:23 | DI.RAD.S_ITS ---
PROCEDURE: XR SHOULDER RT MIN 2V INDICATIONS: fall this Am with pain TECHNIQUE: 3 views of the shoulder were acquired. COMPARISON: None. FINDINGS: Bones: Moderate acromioclavicular and [id number] glenohumeral degenerative changes. No displaced fracture or dislocation. Soft tissues: Small calcifications projected over the axillary soft tissues. IMPRESSION: No displaced fracture or dislocation. If there is high concern for further derangement, consider MRI evaluation. Dictated by: Uri Stark M.D. on 05/30/2022 at 10:20 Approved by: Uri Stark M.D. on 05/30/2022 at 10:21
--- NOTE | 2022-05-30 09:24 | ED_ITS ---
HPI - General Adult General Chief complaint: Extremity Injury, Upper Stated complaint: fall, rt shoulder pain Time Seen by Provider: 05/30/22 09:19 Source: patient Mode of arrival: Ambulatory Limitations: no limitations History of Present Illness HPI narrative: 86-year-old female here for evaluation of injuries that she sustained when she stated that she got caught up in her covers this morning trying to get out of bed and fell and injured her right shoulder. Did not hit her head. There was no loss of consciousness. She is had difficulty moving her shoulder since then. No other injuries from the event. No interventions prior to arrival. Related Data Home Medications Medication Instructions Recorded Confirmed Vitamin D3 See Rx Instructions .Route .COMPLEX 01/02/18 11/16/21 Vitamin B-12 See Rx Instructions .Route .COMPLEX 10/08/19 11/16/21 calcium carbonate 600 mg calcium 600 mg PO BID 10/08/19 11/16/21 (1,500 mg) tablet Previous Rx's Medication Instructions Recorded magnesium oxide 500 mg capsule 500 mg PO DAILY #30 caps 06/06/20 lisinopril 20 mg tablet See Rx Instructions .Route 05/22/21 .COMPLEX #90 tabs phenazopyridine 100 mg tablet 100 mg PO TID PRN pain 6 doses #6 06/08/21 (Pyridium) tabs alendronate 35 mg tablet See Rx Instructions .Route 10/05/21 .COMPLEX #12 tabs simvastatin 20 mg tablet See Rx Instructions .Route 10/05/21 .COMPLEX #90 tabs hydrochlorothiazide 25 mg tablet See Rx Instructions .Route 05/20/22 .COMPLEX #90 tabs Allergies Allergy/AdvReac Type Severity Reaction Status Date / Time naproxen Allergy Intermediate Rash Verified 11/16/21 12:02 Review of Systems Constitutional Constitutional: Reports system reviewed and no additional complaints, except as documented Musculoskeletal Musculoskeletal: Reports system reviewed and no additional complaints, except as documented Integumentary/Breasts Skin/Breast: Reports system reviewed and no additional complaints, except as documented Patient History Medical History Anemia (Unknown) Arthritis of left knee Asymptomatic microscopic hematuria Carotid bruit (Unknown) Chickenpox Constipation Elevated bilirubin Elevated LFTs Esophageal thickening Facial skin lesion Fractures (Unknown) Hematuria (Unknown) Hematuria Hemorrhoids (~2010) History of UTI Hyperlipemia (Unknown) Hypertension (Unknown) Itching Measles Mumps Need for shingles vaccine Osteoarthritis (~2009) Osteopenia (~2017) Post herpetic neuralgia Recurrent urinary tract infection Rib contusion Secondhand smoke exposure Shingles rash Use of cane as ambulatory aid Surgical History History of knee replacement (~2001) Hx of bilateral cataract extraction Family History Child Hypertension Father Hypertension CAD in [place] artery Mother High cholesterol Social History marital status: number of children: 3 household members: none Smoking Status: Never smoker second hand exposure: No alcohol intake: never substance use type: does not use Type(s) of exercise: walking frequency: daily Smoking Status: Never smoker alcohol intake frequency: 0-2 drinks per day Substance Use Type: does not use Exam Initial Vital Signs Initial Vital Signs: Vital Signs Temperature 97.7 F 05/30/22 09:26 Pulse Rate 73 05/30/22 09:26 Respiratory Rate 18 05/30/22 09:26 Blood Pressure 155/68 H 05/30/22 09:26 Pulse Oximetry 99 05/30/22 09:26 Oxygen Delivery Method Room Air 05/30/22 09:26 HENMT Head: normal to inspection and normocephalic Chest Chest: No crepitus and No tenderness Resp Effort & Inspection: normal respiratory effort Back/Spine/Pelvis Cervical Spine: No cervical spinal tenderness Skin General: no rashes or lesions noted Extrem Other: Some movement of the right shoulder but it is limited. Her right elbow and right wrist are unremarkable. Left upper extremities unremarkable. Course Orders Ordered: ED Orders 05/30/22 09:23 XR shoulder RT min 2V Stat Discontinued Medications Acetaminophen (Acetaminophen 325 Mg Tablet) 650 mg PO NOW ONE Stop: 05/30/22 10:39 Vital Signs Vital signs: Vital Signs - 8 hr 05/30/22 09:26 05/30/22 10:09 05/30/22 10:10 Temperature 97.7 F Pulse Rate 73 72 Respiratory Rate 18 Blood Pressure 155/68 H 147/65 H Pulse Oximetry 99 99 Oxygen Delivery Method Room Air 05/30/22 10:10 05/30/22 10:30 05/30/22 10:30 Temperature Pulse Rate 70 70 Respiratory Rate Blood Pressure 151/70 H Pulse Oximetry 99 98 Oxygen Delivery Method Medical Decision Making Imaging Data Extremity x-ray #1: Radiologist's Impression: PROCEDURE:? XR SHOULDER RT MIN 2V ? INDICATIONS:? fall this Am with pain ? TECHNIQUE:? 3 views of the shoulder were acquired.? ? COMPARISON:? None. ? FINDINGS:? ? Bones:? Moderate acromioclavicular and xojb-go-nvhloucy glenohumeral degenerative changes.? No displaced fracture or dislocation. ? Soft tissues:? Small calcifications projected over the axillary soft tissues. ? IMPRESSION:? No displaced fracture or dislocation.? If there is high concern for further derangement, consider MRI evaluation. MDM Narrative Medical decision making narrative: Patient's x-ray shows no signs of fracture or dislocation. She is neurovas cularly intact. Had a discussion with her regarding this. We did discuss that there potentially could be soft tissue injury but there is nothing on the x-rays that would mean that she can not start using her shoulder as tolerated. She was given a sling for comfort but she understands she needs to be out of the sling as much as possible to prevent stiffening of the shoulder. We discussed use of Tylenol for any discomfort. She was given return precautions. She expressed understanding and agreement. Discharge Plan Departure Patient Disposition: Home Clinical Impression: Right shoulder injury Instructions: How to Use a Sling, How To Perform RICE (Rest, Ice, Compress, Elevate) Activity Restrictions/Additional Instructions: The x-ray today's was not show any signs of a fracture or dislocation. The sling is for your comfort. You can take it off to sleep and to shower or as needed as your symptoms improve. You can take Tylenol/acetaminophen for discomfort. You can also ice area. Return to the emergency department for any new symptoms. Prescriptions: No Action Vitamin D3 tablet See Rx Instructions .ROUTE .COMPLEX Rx Instructions: Pt states 2,000 units daily Vitamin B-12 See Rx Instructions .ROUTE .COMPLEX Patient Comments: 2,500 mcg PO QDAY Rx Instructions: 5,000 mcg PO QDAY magnesium oxide 500 mg capsule 500 mg PO DAILY Qty: 30 0RF Rx Instructions: Take 1 tab daily for low magnesium lisinopril 20 mg tablet See Rx Instructions .ROUTE .COMPLEX Qty: 90 0RF Dose Instruction: TAKE ONE TABLET BY MOUTH ONE TIME DAILY for blood pressure Rx Instructions: TAKE ONE TABLET BY MOUTH ONE TIME DAILY for blood pressure simvastatin 20 mg tablet See Rx Instructions .ROUTE .COMPLEX Qty: 90 3RF Dose Instruction: TAKE ONE TABLET BY MOUTH NIGHTLY AT BEDTIME FOR HIGH CHOLESTEROL Rx Instructions: TAKE ONE TABLET BY MOUTH NIGHTLY AT BEDTIME FOR HIGH CHOLESTEROL alendronate 35 mg tablet See Rx Instructions .ROUTE .COMPLEX Qty: 12 3RF Dose Instruction: Take 1 tab BY MOUTH ONCE A WEEK on an empty stomach with a sip of water, remain upright FOR 30 mins AFTER TAKING TABLET Rx Instructions: Take 1 tab BY MOUTH ONCE A WEEK on an empty stomach with a sip of water, remain upright FOR 30 mins AFTER TAKING TABLET hydrochlorothiazide 25 mg tablet See Rx Instructions .ROUTE .COMPLEX Qty: 90 3RF Dose Instruction: take one tablet by mouth every day in the morning for BP Rx Instructions: take one tablet by mouth every day in the morning for BP calcium carbonate 600 mg calcium (1,500 mg) tablet 600 mg PO BID phenazopyridine [Pyridium] 100 mg tablet 100 mg PO TID PRN (Reason: pain) Qty: 6 0RF Rx Instructions: Take 1 tab up to 3x/day as needed for urinary frequency. Referrals: Luisa Pinto ARNP [Primary Care Provider] - Stand Alone Forms: Patient Portal/API
[2022-05-30 09:26] VITALS: BP 155/68; PULSE 73; RESP 18; TEMP 36.5; O2SAT 99; BMI 29.0
[2022-05-30 10:09] VITALS: PULSE 72; O2SAT 99
[2022-05-30 10:10] VITALS: BP 147/65; PULSE 70; O2SAT 99
[2022-05-30 10:30] VITALS: BP 151/70; PULSE 70; O2SAT 98
[2022-05-30] MEDS: ACETAMINOPHEN 325 MG TABLET 650 MG PO (10:44)
== END 2022-05-30 10:59 | disposition home or self-care (01) ==
PROVIDERS: Emergency Provider Emergency Medicine; PCP Nurse Practitioner
DX: S49.91XA Unspecified injury of right shoulder and upper arm, initial encounter (principal); W06.XXXA Fall from bed, initial encounter
CPT/HCPCS: 73030; 99283; 99284

== ENCOUNTER → 2022-06-02 11:35 | Outpatient (CLI) | payer MEDICARE, SELFPAY ==
[2022-05-31 13:35] VITALS: BMI 26.7
[2022-06-02 12:59] LABS: Appearance Urine UA CLEAR; Bilirubin Urine UA 1+ (NEGATIVE); Color Urine UA YELLOW; Glucose Urine UA NEGATIVE (Negative); Ketones Urine UA NEGATIVE (NEGATIVE); Leukocyte Esterase Urine UA NEGATIVE (NEGATIVE); Nitrite Urine UA NEGATIVE (Negative); Occult Blood Urine UA 2+ (Negative); Protein Urine UA NEGATIVE (Negative); Urobilinogen Urine UA 0.2 E.U./dL (0.2)
[2022-06-02 13:01] LABS: Add Manual Diff / Slide Review NO; Basophils Absolute Auto 0 /uL (0-100); Basophils Percent Auto 0.6 % (0-2); Eosinophils Absolute Auto 100 /uL (0-450); Eosinophils Percent Auto 0.8 % (2-4); Hematocrit 35.4 % (36-46); Hemoglobin 11.7 g/dL (12.0-16.0); Lymphocytes Absolute Auto 900 /uL (1100-4500); Lymphocytes Percent Auto 13.7 % (25-40); Mean Corpuscular HGB Conc 33.1 % (30-36); Mean Corpuscular Hemoglobin 31.5 PG (26-34); Monocytes Absolute Auto 1200 /uL (0-900); Monocytes Percent Auto 17.9 % (3-14); Neutrophils Absolute Auto 4400 /uL (1500-7000); Platelet Count 282 X10^3/uL (150-400); Red Blood Cell Count 3.72 X10^6/uL (4.0-5.2); Red Cell Distribution Width 13.6 % (11.6-14.8); White Blood Cell Count 6.6 X10^3/uL (4.5-11.0)
[2022-06-02 13:13] LABS: Alanine Aminotransferase 54 IU/L (<35); Albumin 4.1 g/dL (3.5-5.0); Alkaline Phosphatase 155 U/L (38-126); Aspartate Aminotransferase 66 IU/L (14-36); BUN Creatinine Ratio 26.9 (6-22); Bilirubin Total 0.9 mg/dL (0.2-1.3); Blood Urea Nitrogen 28 mg/dL (7-17); Calcium 10.2 mg/dL (8.4-10.2); Carbon Dioxide 34 mmol/L (22-32); Chloride 97 mmol/L (98-107); Estimated Glomerular Filt Rate 52 mL/min (>60); Glucose 90 mg/dL (80-110); HEMOLYSIS < 15 (0-50); Potassium 3.3 mmol/L (3.4-5.1); Sodium 138 mmol/L (137-145); Total Protein 8.1 g/dL (6.3-8.2)
[2022-06-02 13:15] LABS: Ictotest Urine Negative (Negative)
[2022-06-02 13:17] LABS: Bacteria Urine None Seen; Culture Indicated Urine Cult Not Indicated; RBC Urine 10-30/HPF (0-5/HPF); WBC Urine None Seen (0-5/HPF)
[2022-06-02 13:28] LABS: Free T3, Triiodothyronine Free 3.73 pg/mL (2.77-5.27); Free T4, Direct Thyroxine 1.35 ng/dL (0.78-2.19)
[2022-06-02 13:42] LABS: Thyroid Stimulating Hormone 1.43 uIU/mL (0.47-4.68)
== END ==
PROVIDERS: PCP Nurse Practitioner; Referring Provider Nurse Practitioner; Visit Provider Nurse Practitioner
DX: R41.0 Disorientation, unspecified (principal); R53.83 Other fatigue
CPT/HCPCS: 36415; 80053; 81001; 84439; 84443; 84481; 85025

== ENCOUNTER → 2022-06-10 10:30 | Outpatient (CLI) | payer MEDICARE, SELFPAY ==
[2022-05-31 13:35] VITALS: BMI 26.7
--- NOTE | 2022-06-10 10:32 | DI.CT.S_ITS ---
PROCEDURE: CT ANGIO HEAD INDICATIONS: confusion, fall, memory loss TECHNIQUE: Precontrast 4.5 mm thick angled axial sections acquired from the foramen magnum to the vertex. After the administration of intravenous contrast, 1 mm thick sections acquired through the [place]. Postcontrast 4.5 mm thick sections then re-acquired from the foramen magnum to the vertex. 10 mm thick cwrxrdh-ukoabyvep-qikmiabjpl (MIP) reformats were acquired of the central intracranial vasculature. For radiation dose reduction, the following was used: automated exposure control, adjustment of mA and/or kV according to patient size. COMPARISON: None. FINDINGS: Image quality: Mild streak artifact can be seen through the skull base. Anterior circulation: Intracranial internal carotid arteries demonstrate generalized atherosclerotic calcification and irregularity, with approximately 50% narrowing on each side.. The flow within the paired anterior cerebral arteries is normal and symmetric. The flow within the middle cerebral arteries is normal and symmetric. The anterior communicating artery is not well seen. No aneurysms are seen. Posterior circulation: Focal areas of calcification can be seen involving each V4 segment, with approximately 50% narrowing on each side. The basilar artery is within normal limits. Flow within the posterior cerebral arteries is normal and symmetric. No aneurysms are seen. CSF spaces: Ventricles are normal in size and shape. Basal cisterns are patent. No extra-axial fluid collections. Brain: No midline shift. No intracranial bleeds or masses. Newman-white matter interface appears intact. Skull and face: Calvarium and facial bones appear intact, without suspicious lesions. Sinuses: Visualized sinuses and mastoids are clear. IMPRESSION: Study within normal limits for age, without an acute abnormality seen. No significant intracranial arterial abnormality is seen. Dictated by: Braydon Loco M.D. on 06/10/2022 at 12:30 Approved by: Braydon Loco M.D. on 06/10/2022 at 12:33
--- NOTE | 2022-06-10 10:32 | DI.US.S_ITS ---
PROCEDURE: US ABDOMEN LIMITED INDICATIONS: ELEVATED LIVER FUNCTION TESTS TECHNIQUE: Real-time focused scanning was performed of the abdomen, with image documentation. COMPARISON: [facility], , US ABDOMEN LIMITED, 12/16/2019, 10:37. FINDINGS: Liver is within normal limits measuring 11 cm, without focal mass. Gallbladder and biliary tree are grossly unremarkable. Pancreas is within normal limits as visualized. No ascites. IMPRESSION: Negative examination. Dictated by: Bala Gamboa M.D. on 06/10/2022 at 13:29 Transcribed by: GISSELLE on 06/10/2022 at 13:29 Approved by: Bala Gamboa M.D. on 06/10/2022 at 16:27
--- NOTE | 2022-06-10 10:32 | DI.MRI.S_ITS ---
PROCEDURE: MR SHOULDER RT WO CON INDICATIONS: Right shoulder pain after trauma TECHNIQUE: Noncontrast oblique coronal T2 fast spin echo with fat saturation, oblique sagittal T1 spin echo and T2 fast spin echo with fat saturation, axial T1 spin echo and T2 fast spin echo with fat saturation through the shoulder. COMPARISON: None. FINDINGS: Image quality: Excellent. Rotator cuff: Full-thickness rupture of distal supraspinatus and infraspinatus at their insertions on the humeral head is seen with up to 4.1 cm medial retraction of torn tendon fibers to the level of acromioclavicular joint. Moderate grade partial-thickness tear involving distal subscapularis is also seen. Sagittal images demonstrate moderate supraspinatus and mild infraspinatus muscle atrophy. Bones and bursae: Moderate acromioclavicular joint and glenohumeral joint osteoarthritic changes are seen with joint space narrowing, subchondral sclerosis and marginal osteophyte formation. No fracture or dislocation. Nonspecific subcortical cystic changes are noted in greater tuberosity of humeral head. Moderate to large joint effusion and subacromial subdeltoid bursal fluid is noted. No gross loose bodies. Capsule and soft tissues: Signal abnormality and contour irregularity involving superior anterior labrum at 12 to 2 o'clock position is seen suggestive of superior anterior labral tear. The long head of the biceps tendon appears markedly attenuated near humeral head . The rotator interval appears normal, without fibrosis. The coracohumeral ligament is normal in thickness. IMPRESSION: 1. Full-thickness rupture involving distal supraspinatus and infraspinatus at their insertions on the humeral head with up to 4.1 cm medial retraction of torn tendon fibers to the level of acromioclavicular joint. Moderate grade partial-thickness tear involving superior to mid fibers of distal subscapularis. Moderate supraspinatus muscle atrophy and mild infraspinatus muscle atrophy. 2. Moderate acromioclavicular joint and glenohumeral joint osteoarthritis. No fracture or dislocation. Moderate to large joint effusion and subacromial subdeltoid bursal fluid. No gross loose bodies. 3. Suggestion of superior anterior labral tear at 12 to 2 o'clock position. 4. Moderate grade partial-thickness tear involving proximal intra-articular portion of long head of biceps tendon. Dictated by: Eduardo Carlson M.D. on 06/10/2022 at 15:17 Approved by: Eduardo Carlson M.D. on 06/10/2022 at 15:27
== END ==
PROVIDERS: PCP Nurse Practitioner; Referring Provider Nurse Practitioner; Visit Provider Nurse Practitioner
DX: R79.89 Other specified abnormal findings of blood chemistry (principal); M25.511 Pain in right shoulder; S49.91XA Unspecified injury of right shoulder and upper arm, initial encounter; R41.0 Disorientation, unspecified; R41.3 Other amnesia; S46.811A Strain of other muscles, fascia and tendons at shoulder and upper arm level, right arm, initial encounter; M19.011 Primary osteoarthritis, right shoulder; M25.411 Effusion, right shoulder; S46.111A Strain of muscle, fascia and tendon of long head of biceps, right arm, initial encounter; M62.511 Muscle wasting and atrophy, not elsewhere classified, right shoulder
CPT/HCPCS: 70496; 73221; 76705; Q9967

== ENCOUNTER → 2022-07-16 08:44 | Outpatient (CLI) | payer MEDICARE, SELFPAY ==
[2022-05-31 13:35] VITALS: BMI 26.7
[2022-07-16 10:18] LABS: Add Manual Diff / Slide Review NO; Basophils Absolute Auto 100 /uL (0-100); Basophils Percent Auto 1.2 % (0-2); Eosinophils Absolute Auto 200 /uL (0-450); Hematocrit 33.9 % (36-46); Hemoglobin 11.4 g/dL (12.0-16.0); Lymphocytes Absolute Auto 1300 /uL (1100-4500); Lymphocytes Percent Auto 27.7 % (25-40); Mean Corpuscular HGB Conc 33.7 % (30-36); Mean Corpuscular Hemoglobin 32.4 PG (26-34); Monocytes Absolute Auto 700 /uL (0-900); Neutrophils Absolute Auto 2400 /uL (1500-7000); Neutrophils Percent Auto 52.1 % (50-75); Platelet Count 286 X10^3/uL (150-400); Red Blood Cell Count 3.53 X10^6/uL (4.0-5.2); Red Cell Distribution Width 13.3 % (11.6-14.8); White Blood Cell Count 4.7 X10^3/uL (4.5-11.0)
[2022-07-16 14:41] LABS: Alanine Aminotransferase 16 IU/L (<35); Albumin 3.9 g/dL (3.5-5.0); Albumin Globulin Ratio 1.3 (1.0-2.8); Alkaline Phosphatase 93 U/L (38-126); Aspartate Aminotransferase 27 IU/L (14-36); BUN Creatinine Ratio 24.5 (6-22); Bilirubin Total 0.6 mg/dL (0.2-1.3); Blood Urea Nitrogen 25 mg/dL (7-17); Calcium 9.1 mg/dL (8.4-10.2); Carbon Dioxide 31 mmol/L (22-32); Chloride 101 mmol/L (98-107); Estimated Glomerular Filt Rate 54 mL/min (>60); Globulin 3.1 g/dL (1.7-4.1); Glucose 87 mg/dL (80-110); HEMOLYSIS < 15 (0-50); Potassium 3.8 mmol/L (3.4-5.1); Sodium 139 mmol/L (137-145)
[2022-07-16 15:48] LABS: Vitamin B12 > 1000 pg/mL (239-931)
== END ==
PROVIDERS: PCP Nurse Practitioner; Referring Provider Nurse Practitioner; Visit Provider Nurse Practitioner
DX: D64.9 Anemia, unspecified (principal); R79.89 Other specified abnormal findings of blood chemistry; Z79.899 Other long term (current) drug therapy
CPT/HCPCS: 36415; 80053; 82607; 85025

== ENCOUNTER → 2022-08-06 14:00 | Outpatient (CLI) | payer MEDICARE, SELFPAY ==
[2022-05-31 13:35] VITALS: BMI 26.7
--- NOTE | 2022-08-06 14:05 | DI.ECHO.S_ITS ---
[place] [facility] +---------+ [facility] +---------+ : : [address] : [address] : : : : [id number] : : : : Phone: [phone]---------+ Echocardiogram Report + + :Name: KAVON NICOLE Study Date: 08/06/2022 Height: 64 in : :[facility] ReadingLocation: Weight: 175 lb : : Gender: Female BSA: 1.8 m2 : :: 1935 Age: 86 yrs BP: 119/72 mmHg: :Reason For Study: HYPERTENSION HR: 70 : :Ordering Physician: EZEQUIEL, : :KOFI Performed By: NILDA JEFFERS : :Referring: KOFI NIEVES : + + Interpretation Summary The left ventricle is normal in size and wall thickness. Left ventricular systolic function is normal. The ejection fraction is estimated to be 55-60%. Diastolic parameters suggest a relaxation abnormality of the left ventricle, consistent with probable normal filling pressures. The right ventricle is normal in size and function. The right ventricular systolic pressure is estimated to be at least 22 mmHg based on an estimated right atrial pressure of 3 mm Hg. Both atria are normal in size. Cannot exclude aortic valvular vegetation. There is a filamentous echogenic structure which is small and attached to the left coronary cusp and visible on the aortic side of the valve. Consider screening for endocarditis if clinically suspicious. There is trace aortic regurgitation. There is no other significant valvular heart disease. The ascending aorta is mildly enlarged. Procedure: A two-dimensional transthoracic echocardiogram with color flow and Doppler was performed. The study quality was technically adequate. There is no prior echocardiogram noted for this patient. The patient was in normal sinus rhythm during the exam. Left Ventricle: The left ventricle is normal in size and wall thickness. Left ventricular systolic function is normal. The ejection fraction is estimated to be 55-60%. There are no focal wall motion abnormalities. Diastolic parameters suggest a relaxation abnormality of the left ventricle, consistent with probable normal filling pressures. Right Ventricle: The right ventricle is normal in size and function. Atria: Both atria are normal in size. There is no Doppler evidence for an interatrial shunt. Mitral Valve: The mitral valve leaflets appear normal. There is no evidence of stenosis, fluttering, or prolapse. There is trace mitral regurgitation. Aortic Valve: The aortic valve is trileaflet. The aortic valve opens well. Cannot exclude aortic valvular vegetation. There is a filamentous echogenic structure which is small and attached to the left coronary cusp and visible on the aortic side of the valve. Consider screening for endocarditis if clinically suspicious. There is no aortic valve stenosis. There is trace aortic regurgitation. Tricuspid Valve: The tricuspid valve is normal in structure and function. The right ventricular systolic pressure is estimated to be at least 22 mmHg based on an estimated right atrial pressure of 3 mm Hg. Pulmonic Valve: The pulmonic valve leaflets are thin and pliable; valve motion is normal. There is mild pulmonic regurgitation. There is no other significant valvular heart disease. Great Vessels: The aortic root is normal size. The ascending aorta is mildly enlarged. The IVC is of normal diameter and collapses greater than 50% with a sniff. This suggests a low right atrial pressure of 3 mm Hg. Pericardium/ Pleura There is no pericardial effusion. There is no pleural effusion. MMode/2D Measurements & Calculations LVIDd: 3.7 cm LVOT diam: 1.9 cm LVIDs: 2.2 cm Ao root diam: 3.5 cm FS: 40.5 % asc Aorta Diam: 3.6 cm IVSd: 0.90 cm LVPWd: 0.80 cm LV lopez. diameter/BSA (cm/m^2): 2.0 LV sys. diameter/BSA (cm/m^2): 1.2 LA A2 area: 16.4 cm2 RA long axis: 4.6 cm LA A4 area: 12.7 cm2 LA length (vol): 4.8 cm LA vol: 37.0 ml LA vol index: 20.0 ml/m2 LVLs ap4: 6.0 cm LVLd ap2: 7.3 cm LVLs ap2: 6.3 cm TAPSE_phl: 1.7 cm Doppler Measurements & Calculations Ao V2 max: 137.0 cm/sec LVOT Max Quinton: 82.2 cm/sec Ao V2 mean: 98.9 cm/sec LV V1 max P.7 mmHg Ao max P.0 mmHg LV V1 VTI: 20.0 cm Ao mean P.0 mmHg LUIS A(I,D): 1.9 cm2 Ao V2 VTI: 29.1 cm LUIS A(V,D): 1.7 cm2 sev ratio: 0.69 LUIS A indexed to BSA (cm^2/m^2): 1.1 MV E max quinton: 63.4 cm/sec TR max quinton: 218.0 cm/sec MV A max quinton: 104.0 cm/sec TR max P.0 mmHg MV E/A: 0.61 PA V2 max: 61.4 cm/sec Med Peak E' Quinton: 4.3 cm/sec PA V2 mean: 43.5 cm/sec E/E' med: 14.9 PA mean P.0 mmHg Lat Peak E' Quinton: 7.7 cm/sec PA pr(Accel): 15.5 mmHg E/E' lat: 8.2 E/e' average: 11.6 MV dec time: 0.34 sec SV(LVOT): 56.7 ml AV VR_phl: 0.60 LUIS A(VTI)/BSA_phl: 1.1 MV P1/2t-pr_phl: 101.0 msec Reading Physician:04:27 PM
--- NOTE | 2022-08-06 14:20 | DI.DEXA.S_ITS ---
Bone Density Report Name: KAVON NICOLE Age: 86 Sex: Female Ethnicity: White Date of : 1935 Indication: osteopenia; prior fracture; Referring Provider: KOFI NIEVES Study: Bone densitometry was performed. Exam Date: August 06, 2022 Accession number: [id number] Bone Density: Region BMD T-score Z-score Classification AP Spine(L1, L3, L4) 1.278 2.0 4.9 Normal Femoral Neck (Left) 0.652 -1.8 0.8 Osteopenia Total Hip (Left) 0.865 -0.6 1.7 Normal Femoral Neck (Right) 0.711 -1.2 1.3 Osteopenia Total Hip (Right) 0.858 -0.7 1.6 Normal Total Hip Mean 0.861 -0.7 1.7 Normal World Health Organization criteria for BMD impression classify patients as: Normal (T-score at or above -1.0), Osteopenia (T-score between -1.0 and -2.5), or Osteoporosis (T-score at or below -2.5). 10-year Fracture Risk(1): Major Osteoporotic Fracture 20% Hip Fracture 5.3% Reported Risk Factors: [place] (), Neck BMD=0.652, BMI=26.6, previous fracture (1) FRAX(R) Version 3.08. Fracture probability calculated for an untreated patient. Fracture probability may be lower if the patient has received treatment. Previous Exams: -- Region Exam Age BMD T-score BMD Change BMD Change Date g/cm2 vs Baseline vs Previous -- AP Spine (L1,L3-L4) 08/06/2022 86 1.278 2.0 -0.031 (-2.3%)# -0.031 (-2.3%)# 05/27/2020 84 1.308 2.3 Total Hip(Left) 08/06/2022 86 0.865 -0.6 0.068 (8.6%)# 0.068 (8.6%)# 05/27/2020 84 0.796 -1.2 Total Hip(Right) 08/06/2022 86 0.858 -0.7 0.080 (10.3%)# 0.080 (10.3%)# 05/27/2020 84 0.777 -1.3 -- *Denotes significance at 95% confidence level, LSC for AP Spine = 0.022 g/cm2, LSC for Total Hip = 0.027 g/cm2 # Denotes dissimilar scan types or analysis methods Impression: The patient has low bone mass, based on the Left Femoral Neck T-score. The patient has an estimated ten-year risk of hip fracture of 5.3% and an estimated ten-year risk of major fracture of 20%, based on the WHO FRAX algorithm. The patient has risk factors, including: previous fracture. No significant bone loss was observed. Discussion: BONE DENSITY IS LOW AT ONE OR MORE SKELETAL SITES. THE PATIENT'S BMD AND CLINICAL RISK FACTORS CONTRIBUTE TO THIS PATIENT'S HIGH RISK OF FRACTURE. This patient's lowest T-score is low at one or more skeletal sites. It meets the World Health Organization's (WHO) criteria for ?low bone mass? (T-score between -1.0 and -2.5). The patient's 10-year risk of hip fracture and 10 year risk of a major osteoporotic fracture as calculated by FRAX exceeds the threshold where pharmacological therapy is recommended by the National Osteoporosis Foundation (NOF). However, all treatment decisions require clinical judgment and consideration of individual patient factors, including patient preferences, comorbidities, previous drug use, risk factors not captured in the FRAX model (e.g., frailty, falls, vitamin D deficiency, increased bone turnover, interval significant decline in bone density) and possible under or overestimation of fracture risk by FRAX. The patient should follow a healthful lifestyle (good nutrition with adequate calcium and vitamin D, and appropriate weight-bearing exercise). Follow-Up: Consider a repeat BMD and Vertebral Fracture Assessment (VFA) exam in 2 years or sooner if medically necessary, to reassess this patient's status. Reported by: JOSE MAXWELL M.D. on 08/06/2022 2:33:00 PM.
== END ==
PROVIDERS: PCP Nurse Practitioner; Referring Provider Nurse Practitioner; Visit Provider Nurse Practitioner
DX: M81.0 Age-related osteoporosis without current pathological fracture (principal); I10 Essential (primary) hypertension; I51.7 Cardiomegaly; M85.88 Other specified disorders of bone density and structure, other site
CPT/HCPCS: 77080; 93005; 93306

== ENCOUNTER → 2022-08-10 13:23 | Outpatient (CLI) | payer MEDICARE, SELFPAY ==
[2022-05-31 13:35] VITALS: BMI 26.7
[2022-08-10 15:02] LABS: Add Manual Diff / Slide Review NO; Basophils Absolute Auto 100 /uL (0-100); Basophils Percent Auto 1.1 % (0-2); Eosinophils Absolute Auto 200 /uL (0-450); Eosinophils Percent Auto 2.8 % (2-4); Hematocrit 36.3 % (36-46); Hemoglobin 12.1 g/dL (12.0-16.0); Lymphocytes Absolute Auto 1400 /uL (1100-4500); Lymphocytes Percent Auto 22.6 % (25-40); Mean Corpuscular HGB Conc 33.3 % (30-36); Mean Corpuscular Hemoglobin 32.2 PG (26-34); Mean Corpuscular Volume 96.7 fL (80-100); Monocytes Absolute Auto 800 /uL (0-900); Monocytes Percent Auto 13.4 % (3-14); Neutrophils Absolute Auto 3600 /uL (1500-7000); Neutrophils Percent Auto 60.1 % (50-75); Platelet Count 242 X10^3/uL (150-400); Red Blood Cell Count 3.75 X10^6/uL (4.0-5.2); Red Cell Distribution Width 13.6 % (11.6-14.8)
[2022-08-10 15:15] LABS: Microalbumin Urine Random < 0.6 mg/dL (0-1.6)
[2022-08-10 15:29] LABS: C-Reactive Protein Quant < 0.5 mg/dL (<1.0); Creatine Kinase 49 U/L (30-135)
[2022-08-10 15:32] LABS: Erythrocyte Sedimentation Rate 63 MM/HR (0-20)
== END ==
PROVIDERS: PCP Nurse Practitioner; Referring Provider Registered Nurse Diabetes Educator; Visit Provider Registered Nurse Diabetes Educator
DX: R93.1 Abnormal findings on diagnostic imaging of heart and coronary circulation (principal); D64.9 Anemia, unspecified; E78.5 Hyperlipidemia, unspecified; I10 Essential (primary) hypertension; M85.80 Other specified disorders of bone density and structure, unspecified site; R79.89 Other specified abnormal findings of blood chemistry; Z79.899 Other long term (current) drug therapy
CPT/HCPCS: 36415; 82043; 82550; 82570; 85025; 85651; 86140

== ENCOUNTER → 2022-08-12 08:20 | Outpatient (CLI) | payer MEDICARE, SELFPAY ==
[2022-05-31 13:35] VITALS: BMI 26.7
== END ==
PROVIDERS: PCP Nurse Practitioner; Referring Provider Nurse Practitioner; Visit Provider Nurse Practitioner
DX: R93.1 Abnormal findings on diagnostic imaging of heart and coronary circulation (principal)
CPT/HCPCS: 36415; 87040

== ENCOUNTER → 2022-09-09 16:03 | Outpatient (CLI) | payer MEDICARE, SELFPAY ==
[2022-05-31 13:35] VITALS: BMI 26.7
== END ==
PROVIDERS: PCP Nurse Practitioner; Referring Provider Internal Medicine Cardiovascular Disease; Visit Provider Internal Medicine Cardiovascular Disease
DX: I35.9 Nonrheumatic aortic valve disorder, unspecified (principal)
CPT/HCPCS: 36415; 87040

== ENCOUNTER → 2022-09-29 08:36 | Outpatient (CLI) | payer MEDICARE, SELFPAY ==
[2022-05-31 13:35] VITALS: BMI 26.7
[2022-09-29 09:40] LABS: Add Manual Diff / Slide Review NO; Basophils Absolute Auto 0 /uL (0-100); Eosinophils Absolute Auto 100 /uL (0-450); Eosinophils Percent Auto 2.1 % (2-4); Hematocrit 35.1 % (36-46); Hemoglobin 11.9 g/dL (12.0-16.0); Lymphocytes Absolute Auto 1400 /uL (1100-4500); Lymphocytes Percent Auto 33.8 % (25-40); Mean Corpuscular HGB Conc 33.8 % (30-36); Mean Corpuscular Hemoglobin 32.2 PG (26-34); Mean Corpuscular Volume 95.2 fL (80-100); Monocytes Absolute Auto 600 /uL (0-900); Monocytes Percent Auto 15.5 % (3-14); Neutrophils Absolute Auto 1900 /uL (1500-7000); Neutrophils Percent Auto 47.6 % (50-75); Platelet Count 239 X10^3/uL (150-400); Red Blood Cell Count 3.68 X10^6/uL (4.0-5.2); Red Cell Distribution Width 12.8 % (11.6-14.8); White Blood Cell Count 4.1 X10^3/uL (4.5-11.0)
[2022-09-29 10:29] LABS: Alanine Aminotransferase 18 IU/L (<35); Albumin 3.9 g/dL (3.5-5.0); Albumin Globulin Ratio 1.2 (1.0-2.8); Alkaline Phosphatase 85 U/L (38-126); Aspartate Aminotransferase 33 IU/L (14-36); BUN Creatinine Ratio 29.6 (6-22); Bilirubin Total 0.7 mg/dL (0.2-1.3); Blood Urea Nitrogen 29 mg/dL (7-17); Calcium 9.7 mg/dL (8.4-10.2); Carbon Dioxide 34 mmol/L (22-32); Chloride 99 mmol/L (98-107); Cholesterol 206 mg/dL (140-199); Estimated Glomerular Filt Rate 56 mL/min (>60); Globulin 3.2 g/dL (1.7-4.1); Glucose 90 mg/dL (80-110); HDL Cholesterol 60 mg/dL (40-60); HEMOLYSIS 18 (0-50); LDL Cholesterol Calculated 122 mg/dL (<100); Sodium 138 mmol/L (137-145); Total Protein 7.1 g/dL (6.3-8.2); Triglycerides 119 mg/dL (35-150)
== END ==
PROVIDERS: PCP Nurse Practitioner; Referring Provider Nurse Practitioner; Visit Provider Nurse Practitioner
DX: D64.9 Anemia, unspecified (principal); I10 Essential (primary) hypertension; E78.5 Hyperlipidemia, unspecified; M85.80 Other specified disorders of bone density and structure, unspecified site; R79.89 Other specified abnormal findings of blood chemistry; Z79.899 Other long term (current) drug therapy
CPT/HCPCS: 36415; 80053; 80061; 83735; 85025

== ENCOUNTER → 2022-12-21 10:45 | Outpatient (CLI) | payer MEDICARE, SELFPAY ==
[2022-05-31 13:35] VITALS: BMI 26.7
== END ==
PROVIDERS: PCP Nurse Practitioner; Visit Provider Physician Assistant
DX: R30.0 Dysuria (principal)
CPT/HCPCS: 87086

== ENCOUNTER → 2023-01-08 11:35 | Outpatient (CLI) | payer MEDICARE, SELFPAY ==
[2022-05-31 13:35] VITALS: BMI 26.7
== END ==
PROVIDERS: PCP Nurse Practitioner; Visit Provider Nurse Practitioner Family
DX: N89.8 Other specified noninflammatory disorders of vagina (principal)
CPT/HCPCS: 87086; 87210

== ENCOUNTER → 2023-02-23 12:37 | Outpatient (CLI) | payer MEDICARE, SELFPAY ==
[2022-05-31 13:35] VITALS: BMI 26.7
--- NOTE | 2023-02-23 12:39 | DI.ECHO.S_ITS ---
[place] +---------+ Hospital +---------+ : : [address] : [address] : : : : [id number] : : : : Phone: [phone]---------+ Echocardiogram Report + + :Name: KAVON NICOLE Study Date: 02/23/2023 Height: 64 in : :[facility] ReadingLocation: Weight: 180 lb : : Gender: Female BSA: 1.9 m2 : :: 1935 Age: 87 yrs BP: 130/69 mmHg: :Reason For Study: VEGETATION OF HREAT VALVE NOTED ON PREVIOUS : :EXAM : :Ordering Physician: EZEQUIEL, : :KOFI Performed By: Daylin Kim : :Referring: KOFI NIEVES : + + Interpretation Summary 1) Normal left ventricular thickness, size, wall motion, and systolic function (EF 55-60%). 2) Normal right ventricular size and function. 3) Small linear echogenicity on the aortic valve (aortic side). 4) No significant valvular stenosis or regurgitation. 5) Compared to the Echo done 08/06/2022, no significant change. Procedure: A two-dimensional transthoracic echocardiogram with color flow and Doppler was performed. The study quality was technically adequate. Comparison is made with the echocardiogram of 08/06/2022. The patient was in sinus rhythm with heart rates between 64-82 bpm during the exam. Left Ventricle: Proximal septal thickening is noted. The left ventricle is normal in size. The ejection fraction is estimated to be 55-60%. Left ventricular systolic function appears normal without focal wall motion abnormalities. Right Ventricle: The right ventricle is normal in size and function. Atria: The left atrial size is normal. Right atrial size is normal. The atrial septum is aneurysmal. Mitral Valve: The mitral valve leaflets appear normal. There is no evidence of stenosis, fluttering, or prolapse. There is mild mitral annular calcification. There is trace mitral regurgitation. Aortic Valve: The aortic valve is trileaflet. The aortic valve opens well. Small linear echogenicity on the aortic valve (aortic side). There is no aortic valve stenosis. There is mild aortic regurgitation. Tricuspid Valve: The tricuspid valve leaflets are thin and pliable. There is mild tricuspid regurgitation. The right ventricular systolic pressure is estimated to be at least 21 mmHg based on an estimated right atrial pressure of 3 mm Hg. Pulmonic Valve: The pulmonic valve leaflets are thin and pliable; valve motion is normal. There is mild pulmonic regurgitation. Great Vessels: The aortic root is normal size. The dimensions of the ascending aorta are normal. The IVC is of normal diameter and collapses greater than 50% with a sniff. This suggests a low right atrial pressure of 3 mm Hg. Pericardium/ Pleura There is no pericardial effusion. There is no pleural effusion. MMode/2D Measurements & Calculations LVIDd: 4.3 cm LVOT diam: 2.2 cm LVIDs: 3.0 cm Ao root diam: 3.5 cm FS: 29.6 % asc Aorta Diam: 3.8 cm EPSS: 1.2 cm IVSd: 0.91 cm LVPWd: 0.97 cm LV lopez. diameter/BSA (cm/m^2): 2.3 LV sys. diameter/BSA (cm/m^2): 1.6 LA A2 area: 23.0 cm2 RA long axis: 5.0 cm LA A4 area: 14.7 cm2 RA area: 16.2 cm2 LA length (vol): 4.9 cm RA vol: 44.4 ml LA vol: 58.5 ml RA : 23.7 ml/m2 LA vol index: 31.3 ml/m2 IVC diam: 1.4 cm RVD1 (basal): 4.0 cm RVD2 (mid): 3.0 cm TAPSE: 1.9 cm Doppler Measurements & Calculations Ao V2 max: 170.8 cm/sec LVOT Max Quinton: 88.4 cm/sec Ao V2 mean: 118.7 cm/sec LV V1 max P.1 mmHg Ao max P.7 mmHg LV V1 VTI: 21.0 cm Ao mean P.4 mmHg LUIS A(I,D): 2.2 cm2 Ao V2 VTI: 35.3 cm LUIS A(V,D): 1.9 cm2 sev ratio: 0.60 LUIS A indexed to BSA (cm^2/m^2): 1.2 MV E max quinton: 66.8 cm/sec TR max quinton: 214.7 cm/sec MV A max quinton: 100.5 cm/sec TR max P.4 mmHg MV E/A: 0.66 PA V2 max: 76.8 cm/sec Med Peak E' Quinton: 4.9 cm/sec PA V2 mean: 56.0 cm/sec E/E' med: 13.6 PA mean P.4 mmHg Lat Peak E' Quinton: 6.7 cm/sec PA pr(Accel): 32.8 mmHg E/E' lat: 9.9 E/e' average: 11.8 MV dec time: 0.26 sec SV(LISA): 76.9 ml Reading Physician:04:23 PM
== END ==
PROVIDERS: PCP Nurse Practitioner; Referring Provider Nurse Practitioner; Visit Provider Nurse Practitioner
DX: I33.0 Acute and subacute infective endocarditis (principal); I08.3 Combined rheumatic disorders of mitral, aortic and tricuspid valves
CPT/HCPCS: 93306

== ENCOUNTER → 2023-03-08 13:17 | Outpatient (CLI) | payer MEDICARE, SELFPAY ==
[2022-05-31 13:35] VITALS: BMI 26.7
[2023-03-08 14:18] LABS: Add Manual Diff / Slide Review NO; Basophils Absolute Auto 0 /uL (0-100); Basophils Percent Auto 0.6 % (0-2); Eosinophils Absolute Auto 0 /uL (0-450); Eosinophils Percent Auto 0.4 % (2-4); Hematocrit 35.6 % (36-46); Hemoglobin 12.3 g/dL (12.0-16.0); Lymphocytes Absolute Auto 1200 /uL (1100-4500); Mean Corpuscular HGB Conc 34.4 % (30-36); Mean Corpuscular Hemoglobin 32.8 PG (26-34); Mean Corpuscular Volume 95.3 fL (80-100); Monocytes Absolute Auto 900 /uL (0-900); Monocytes Percent Auto 12.6 % (3-14); Neutrophils Absolute Auto 4900 /uL (1500-7000); Neutrophils Percent Auto 69.4 % (50-75); Platelet Count 278 X10^3/uL (150-400); Red Blood Cell Count 3.74 X10^6/uL (4.0-5.2); Red Cell Distribution Width 13.1 % (11.6-14.8)
[2023-03-08 14:35] LABS: HEMOLYSIS < 15 (0-50); Iron 120 ug/dL (37-170)
[2023-03-08 14:38] LABS: Alanine Aminotransferase 16 IU/L (<35); Albumin 4.3 g/dL (3.5-5.0); Albumin Globulin Ratio 1.2 (1.0-2.8); Alkaline Phosphatase 94 U/L (38-126); Aspartate Aminotransferase 35 IU/L (14-36); BUN Creatinine Ratio 26.9 (6-22); Bilirubin Total 0.8 mg/dL (0.2-1.3); Blood Urea Nitrogen 28 mg/dL (7-17); Calcium 10.4 mg/dL (8.4-10.2); Carbon Dioxide 30 mmol/L (22-32); Chloride 99 mmol/L (98-107); Estimated Glomerular Filt Rate 52 mL/min (>60); Globulin 3.7 g/dL (1.7-4.1); Glucose 97 mg/dL (80-110); HEMOLYSIS < 15 (0-50); Potassium 3.6 mmol/L (3.4-5.1); Sodium 138 mmol/L (137-145)
[2023-03-08 14:45] LABS: Percent Iron Saturation 35 % (15-50); Total Iron Binding Capacity 346 ug/dL (265-497); Transferrin 305 mg/dL (206-381)
[2023-03-08 14:52] LABS: Free T3, Triiodothyronine Free 3.42 pg/mL (2.77-5.27); Free T4, Direct Thyroxine 1.13 ng/dL (0.78-2.19)
[2023-03-08 15:05] LABS: Thyroid Stimulating Hormone 1.28 uIU/mL (0.47-4.68)
[2023-03-08 15:25] LABS: Vitamin B12 974 pg/mL (239-931)
[2023-03-08 15:44] LABS: Creatinine Urine Random 163.8 mg/dL
[2023-03-08 15:47] LABS: Microalbumi Creatinin Ratio Ur 5.4 ug/mg CR (<30); Microalbumin Urine Random 0.9 mg/dL (0-1.6)
== END ==
PROVIDERS: PCP Nurse Practitioner; Referring Provider Internal Medicine Cardiovascular Disease; Visit Provider Internal Medicine Cardiovascular Disease
DX: I35.9 Nonrheumatic aortic valve disorder, unspecified (principal); D64.9 Anemia, unspecified; R79.89 Other specified abnormal findings of blood chemistry; M85.80 Other specified disorders of bone density and structure, unspecified site; I10 Essential (primary) hypertension; Z79.899 Other long term (current) drug therapy
CPT/HCPCS: 36415; 80053; 82043; 82570; 82607; 83540; 83550; 84439; 84443; 84481; 85025; 87040

== ENCOUNTER → 2023-05-20 07:45 | Outpatient (CLI) | payer MEDICARE, SELFPAY ==
[2022-05-31 13:35] VITALS: BMI 26.7
[2023-05-20 08:10] LABS: Appearance Urine UA CLEAR; Bilirubin Urine UA NEGATIVE (NEGATIVE); Color Urine UA YELLOW; Glucose Urine UA NEGATIVE (Negative); Ketones Urine UA NEGATIVE (NEGATIVE); Leukocyte Esterase Urine UA NEGATIVE (NEGATIVE); Nitrite Urine UA NEGATIVE (Negative); Occult Blood Urine UA 2+ (Negative); Protein Urine UA NEGATIVE (Negative); Urobilinogen Urine UA 0.2 E.U./dL (0.2)
[2023-05-20 08:22] LABS: pH Urine UA 7.5 (4.5-8.0)
[2023-05-20 08:48] LABS: Bacteria Urine Moderate (10-30); Culture Indicated Urine Cult Not Indicated; RBC Urine 1-5/HPF (0-5/HPF); Squamous Epithelial Cell Urine 5-10 /HPF (0-5/HPF); Urine Volume 10mL (spun); WBC Urine None Seen (0-5/HPF)
== END ==
PROVIDERS: PCP Nurse Practitioner; Visit Provider Nurse Practitioner Family
DX: R39.15 Urgency of urination (principal)
CPT/HCPCS: 81001

== ENCOUNTER → 2023-05-27 18:10 | Outpatient (CLI) | payer MEDICARE, SELFPAY ==
[2022-05-31 13:35] VITALS: BMI 26.7
== END ==
PROVIDERS: PCP Nurse Practitioner; Visit Provider Nurse Practitioner Family
DX: R10.9 Unspecified abdominal pain (principal)
CPT/HCPCS: 87077; 87086; 87186

== ENCOUNTER → 2023-09-13 09:41 | Outpatient (CLI) | payer MEDICARE, SELFPAY ==
[2022-05-31 13:35] VITALS: BMI 26.7
[2023-09-13 11:06] LABS: Add Manual Diff / Slide Review NO; Basophils Absolute Auto 0 /uL (0-100); Eosinophils Absolute Auto 100 /uL (0-450); Eosinophils Percent Auto 3.1 % (2-4); Hematocrit 36.4 % (36-46); Hemoglobin 12.3 g/dL (12.0-16.0); Lymphocytes Absolute Auto 1000 /uL (1100-4500); Lymphocytes Percent Auto 23.3 % (25-40); Mean Corpuscular HGB Conc 33.8 % (30-36); Mean Corpuscular Hemoglobin 32.3 PG (26-34); Mean Corpuscular Volume 95.3 fL (80-100); Monocytes Absolute Auto 700 /uL (0-900); Monocytes Percent Auto 15.4 % (3-14); Neutrophils Absolute Auto 2400 /uL (1500-7000); Neutrophils Percent Auto 57.2 % (50-75); Platelet Count 219 X10^3/uL (150-400); Red Blood Cell Count 3.82 X10^6/uL (4.0-5.2); Red Cell Distribution Width 13.1 % (11.6-14.8); White Blood Cell Count 4.3 X10^3/uL (4.5-11.0)
[2023-09-13 11:28] LABS: Alanine Aminotransferase 14 IU/L (<35); Albumin Globulin Ratio 1.1 (1.0-2.8); Alkaline Phosphatase 83 U/L (38-126); Aspartate Aminotransferase 31 IU/L (14-36); BUN Creatinine Ratio 26.6 (6-22); Bilirubin Total 0.7 mg/dL (0.2-1.3); Blood Urea Nitrogen 29 mg/dL (7-17); Calcium 9.5 mg/dL (8.4-10.2); Carbon Dioxide 34 mmol/L (22-32); Chloride 103 mmol/L (98-107); Cholesterol 186 mg/dL (140-199); Estimated Glomerular Filt Rate 49 mL/min (>60); Globulin 3.5 g/dL (1.7-4.1); Glucose 95 mg/dL (80-110); HDL Cholesterol 50 mg/dL (40-60); HEMOLYSIS < 15 (0-50); LDL Cholesterol Calculated 108 mg/dL (<100); Magnesium 1.9 mg/dL (1.6-2.3); Potassium 3.8 mmol/L (3.4-5.1); Sodium 140 mmol/L (137-145); Total Protein 7.5 g/dL (6.3-8.2); Triglycerides 141 mg/dL (35-150)
[2023-09-13 12:51] LABS: Free T3, Triiodothyronine Free 3.87 pg/mL (2.77-5.27); Free T4, Direct Thyroxine 0.98 ng/dL (0.78-2.19)
[2023-09-13 12:59] LABS: Creatinine Urine Random 191.12 mg/dL
[2023-09-13 13:03] LABS: Microalbumin Urine Random 0.7 mg/dL (0-1.6)
[2023-09-13 13:04] LABS: Thyroid Stimulating Hormone 1.44 uIU/mL (0.47-4.68)
== END ==
PROVIDERS: PCP Nurse Practitioner; Referring Provider Nurse Practitioner; Visit Provider Nurse Practitioner
DX: D64.9 Anemia, unspecified (principal); E78.5 Hyperlipidemia, unspecified; R79.89 Other specified abnormal findings of blood chemistry; M85.80 Other specified disorders of bone density and structure, unspecified site; I10 Essential (primary) hypertension; T50.2X5A Adverse effect of carbonic-anhydrase inhibitors, benzothiadiazides and other diuretics, initial encounter; Z79.899 Other long term (current) drug therapy
CPT/HCPCS: 36415; 80053; 80061; 82043; 82570; 83735; 84439; 84443; 84481; 85025

== ENCOUNTER → 2024-03-01 10:47 | Outpatient (CLI) | payer MEDICARE, SELFPAY ==
[2022-05-31 13:35] VITALS: BMI 26.7
[2024-03-01 11:04] LABS: Appearance Urine UA CLEAR; Bilirubin Urine UA NEGATIVE (NEGATIVE); Color Urine UA YELLOW; Glucose Urine UA NEGATIVE (Negative); Ketones Urine UA NEGATIVE (NEGATIVE); Leukocyte Esterase Urine UA NEGATIVE (NEGATIVE); Nitrite Urine UA NEGATIVE (Negative); Occult Blood Urine UA 2+ (Negative); Protein Urine UA NEGATIVE (Negative); Specific Gravity Urine UA 1.015 (1.000-1.035); Urobilinogen Urine UA 0.2 E.U./dL (0.2)
[2024-03-01 11:14] LABS: Bacteria Urine Few (2-10); RBC Urine 10-30/HPF (0-5/HPF); Squamous Epithelial Cell Urine 1-5 /HPF (0-5/HPF); Urine Volume 10mL (spun); WBC Urine 1-5/HPF (0-5/HPF); pH Urine UA 7.5 (4.5-8.0)
[2024-03-01 11:15] LABS: Culture Indicated Urine Cult Not Indicated
== END ==
PROVIDERS: PCP Nurse Practitioner; Visit Provider Physician Assistant
DX: R35.0 Frequency of micturition (principal); R31.9 Hematuria, unspecified
CPT/HCPCS: 81001; 87086

== ENCOUNTER → 2024-03-02 10:56 | Outpatient (CLI) | payer MEDICARE, SELFPAY ==
[2022-05-31 13:35] VITALS: BMI 26.7
--- NOTE | 2024-03-02 10:58 | DI.RAD.S_ITS ---
PROCEDURE: XR LUMBAR SPINE 2-3V INDICATIONS: back/right hip pain x 1 week TECHNIQUE: 3 views of the lumbar spine were acquired. COMPARISON: None. FINDINGS: Bones: 5 [id number]-kakpfko vertebrae are present. There is wtjl-gj-jwrioquk levoscoliosis of thoracolumbar spine with apex at T12 level and Rick angle measures 22.5?. Loss of disc height, degenerative endplate changes and bilateral facet arthrosis throughout lumbar spine is seen. 8 mm anterolisthesis of L4 on L5 is seen. 7 mm retrolisthesis of L2 on L3 is also noted. There is 4 mm retrolisthesis of L1 and L2.. No vertebral body compression fractures. No suspicious bony lesions. Soft tissues: Overlying bowel gas pattern is normal. No suspicious soft tissue calcifications. 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 Scoliosis and spondylolisthesis in thoracic and lumbar spine as described above. No acute vertebral body compression fracture. Dictated by: Eduardo Carlson M.D. on 03/02/2024 at 13:23 Approved by: Eduardo Carlson M.D. on 03/02/2024 at 13:26
--- NOTE | 2024-03-02 10:58 | DI.RAD.S_ITS ---
PROCEDURE: XR HIP W PEL IF DONE RT 2V INDICATIONS: back/right hip pain x 1 week TECHNIQUE: AP pelvis with lateral view(s) of the right hip(s). COMPARISON: None. FINDINGS: Bones: No fractures or dislocations. 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 No evidence of avascular necrosis of femoral head. Pelvic ring appears intact. No suspicious bony lesions. Moderate degenerative disc disease in visualized lower lumbar spine is seen. Soft tissues: The visualized bowel gas pattern is normal. No suspicious soft tissue calcifications. IMPRESSION: Asymmetric severe right hip joint osteoarthritis. No acute fracture or dislocation. No evidence of avascular necrosis. Dictated by: Eduardo Carlson M.D. on 03/02/2024 at 13:22 Approved by: Eduardo Carlson M.D. on 03/02/2024 at 13:23
== END ==
PROVIDERS: PCP Nurse Practitioner; Referring Provider Physician Assistant; Visit Provider Physician Assistant
DX: M25.551 Pain in right hip (principal); M16.0 Bilateral primary osteoarthritis of hip; M48.061 Spinal stenosis, lumbar region without neurogenic claudication; M51.369 Other intervertebral disc degeneration, lumbar region without mention of lumbar back pain or lower extremity pain; M51.34 Other intervertebral disc degeneration, thoracic region; M41.9 Scoliosis, unspecified; M43.14 Spondylolisthesis, thoracic region; M43.16 Spondylolisthesis, lumbar region
CPT/HCPCS: 72100; 73502

== ENCOUNTER → 2024-03-20 12:23 | Outpatient (CLI) | payer MEDICARE, SELFPAY ==
[2022-05-31 13:35] VITALS: BMI 26.7
--- NOTE | 2024-03-20 12:24 | DI.ECHO.S_ITS ---
[place] +---------+ Hospital : : [address] : : [place] : : [id number] : : Phone: [phone] Echocardiogram Report + + :Name: KAVON NICOLE Study Date: 03/20/2024 Height: 64 in : :[facility] ReadingLocation: Weight: 170 lb : : Gender: Female BSA: 1.8 m2 : :: 1935 Age: 88 yrs BP: 145/94 mmHg: :Reason For Study: AORTIC VALVE DISORDER : :Ordering Physician: ELBA, : :JONATHON Performed By: Steven Mckee : :Referring: JONATHON VILLASENOR : + + Interpretation Summary 1) Normal left ventricular thickness and size with low normal systolic function (EF 50-55%). 2) Normal right ventricular size and function. 3) Small linear echogenicity on the aortic valve (aortic side) is not well seen on this study. 4) No significant valvular stenosis or regurgitation. 5) Compared to the Echo done 02/23/2023, LVEF has decreased slightly from 55- 60% to 50-55% on this study. Procedure: A two-dimensional transthoracic echocardiogram with color flow and Doppler was performed. The study quality was technically good. Comparison is made with the echocardiogram of 02/23/2023. The patient was in normal sinus rhythm during the exam. Left Ventricle: The left ventricle is normal in size. There is normal left ventricular wall thickness. There is mild proximal septal thickening noted. There is no ventricular septal defect visualized. The ejection fraction is estimated to be 50-55%. There are no focal wall motion abnormalities. Right Ventricle: The right ventricle is normal in size and function. Atria: The left atrium is moderately dilated. The right atrium is mildly dilated. There is no Doppler evidence for an interatrial shunt. Mitral Valve: The mitral valve leaflets appear normal. There is no evidence of stenosis, fluttering, or prolapse. There is mild mitral annular calcification. There is trace mitral regurgitation. Aortic Valve: The aortic valve is trileaflet. The aortic valve opens well. The aortic valve is mildly calcified. Small linear echogenicity on the aortic valve (aortic side) is not well seen on this study. There is trace aortic regurgitation. Tricuspid Valve: The tricuspid valve is normal in structure and function. There is trace tricuspid regurgitation. The right ventricular systolic pressure is estimated to be at least 18 mmHg based on an estimated right atrial pressure of 3 mm Hg. Pulmonic Valve: The pulmonic valve is normal in structure and function. There is no pulmonic valvular regurgitation. Great Vessels: The aortic root is normal size. The ascending aorta is at the upper limits of normal in size. The pulmonary artery is normal size. The IVC is of normal diameter and collapses greater than 50% with a sniff. This suggests a low right atrial pressure of 3 mm Hg. Pericardium/ Pleura There is no pericardial effusion. There is no pleural effusion. MMode/2D Measurements & Calculations LVIDd: 4.0 cm LVOT diam: 2.3 cm LVIDs: 2.8 cm Ao root diam: 3.5 cm FS: 29.5 % asc Aorta Diam: 4.0 cm EPSS: 1.0 cm Ao Arch Diam (Prox Trans): 2.0 cm IVSd: 1.1 cm LVPWd: 0.97 cm LV lopez. diameter/BSA (cm/m^2): 2.2 LV sys. diameter/BSA (cm/m^2): 1.6 LA A2 area: 19.6 cm2 RA long axis: 5.3 cm LA A4 area: 22.1 cm2 RA area: 15.7 cm2 LA length (vol): 5.7 cm RA vol: 39.4 ml LA vol: 64.7 ml RA : 21.6 ml/m2 LA vol index: 35.5 ml/m2 IVC diam: 1.3 cm RVD1 (basal): 3.5 cm RVD2 (mid): 2.6 cm TAPSE: 2.7 cm Doppler Measurements & Calculations Ao V2 max: 164.5 cm/sec LVOT Max Quinton: 84.2 cm/sec Ao V2 mean: 113.0 cm/sec LV V1 max P.8 mmHg Ao max P.8 mmHg LV V1 VTI: 19.4 cm Ao mean P.6 mmHg LUIS A(I,D): 2.1 cm2 Ao V2 VTI: 37.0 cm LUIS A(V,D): 2.1 cm2 sev ratio: 0.52 LUIS A indexed to BSA (cm^2/m^2): 1.2 MV E max quinton: 59.7 cm/sec TR max quinton: 193.4 cm/sec MV A max quinton: 86.4 cm/sec TR max P.0 mmHg MV E/A: 0.69 PA V2 max: 49.8 cm/sec Med Peak E' Quinton: 4.0 cm/sec PA V2 mean: 30.3 cm/sec E/E' med: 15.1 PA mean P.45 mmHg Lat Peak E' Quinton: 7.0 cm/sec PA pr(Accel): 27.6 mmHg E/E' lat: 8.5 E/e' average: 11.8 MV dec time: 0.27 sec SV(LVOT): 79.1 ml Reading Physician:04:34 PM
== END ==
PROVIDERS: PCP Family Medicine; Referring Provider Internal Medicine Cardiovascular Disease; Visit Provider Internal Medicine Cardiovascular Disease
DX: I34.81 Nonrheumatic mitral (valve) annulus calcification
CPT/HCPCS: 93306

== ENCOUNTER → 2024-03-28 08:11 | Outpatient (CLI) | payer MEDICARE, SELFPAY ==
[2022-05-31 13:35] VITALS: BMI 26.7
[2024-03-28 08:46] LABS: Add Manual Diff / Slide Review NO; Basophils Absolute Auto 100 /uL (0-100); Basophils Percent Auto 1.2 % (0-2); Eosinophils Absolute Auto 500 /uL (0-450); Eosinophils Percent Auto 10.5 % (2-4); Hematocrit 37.9 % (36-46); Hemoglobin 12.6 g/dL (12.0-16.0); Lymphocytes Absolute Auto 1100 /uL (1100-4500); Lymphocytes Percent Auto 21.4 % (25-40); Mean Corpuscular HGB Conc 33.3 % (30-36); Monocytes Absolute Auto 1100 /uL (0-900); Monocytes Percent Auto 20.3 % (3-14); Neutrophils Absolute Auto 2400 /uL (1500-7000); Neutrophils Percent Auto 46.6 % (50-75); Platelet Count 272 X10^3/uL (150-400); Red Blood Cell Count 3.94 X10^6/uL (4.0-5.2); Red Cell Distribution Width 13.4 % (11.6-14.8); White Blood Cell Count 5.2 X10^3/uL (4.5-11.0)
[2024-03-28 08:56] LABS: Appearance Urine UA CLEAR; Bilirubin Urine UA NEGATIVE (NEGATIVE); Color Urine UA YELLOW; Glucose Urine UA NEGATIVE (Negative); Ketones Urine UA NEGATIVE (NEGATIVE); Leukocyte Esterase Urine UA TRACE (NEGATIVE); Nitrite Urine UA NEGATIVE (Negative); Occult Blood Urine UA 3+ (Negative); Protein Urine UA NEGATIVE (Negative); Urobilinogen Urine UA 0.2 E.U./dL (0.2)
[2024-03-28 08:57] LABS: Urine Volume 10mL (spun)
[2024-03-28 09:03] LABS: HEMOLYSIS < 15 (0-50); Iron 77 ug/dL (37-170)
[2024-03-28 09:06] LABS: Alanine Aminotransferase 22 IU/L (<35); Albumin Globulin Ratio 1.4 (1.0-2.8); Alkaline Phosphatase 94 U/L (38-126); Aspartate Aminotransferase 36 IU/L (14-36); BUN Creatinine Ratio 21.9 (6-22); Bilirubin Total 0.7 mg/dL (0.2-1.3); Blood Urea Nitrogen 21 mg/dL (7-17); Calcium 9.5 mg/dL (8.4-10.2); Carbon Dioxide 33 mmol/L (22-32); Chloride 103 mmol/L (98-107); Estimated Glomerular Filt Rate 57 mL/min (>60); Globulin 2.8 g/dL (1.7-4.1); Glucose 100 mg/dL (80-110); HEMOLYSIS < 15 (0-50); Potassium 4.1 mmol/L (3.4-5.1); Sodium 139 mmol/L (137-145); Total Protein 6.8 g/dL (6.3-8.2)
[2024-03-28 09:14] LABS: Percent Iron Saturation 26 % (15-50); Total Iron Binding Capacity 299 ug/dL (265-497); Transferrin 276 mg/dL (206-381)
[2024-03-28 09:15] LABS: Bacteria Urine None Seen; Culture Indicated Urine Specimen Cultured; RBC Urine 10-30/HPF (0-5/HPF); Squamous Epithelial Cell Urine 5-10 /HPF (0-5/HPF); WBC Urine 10-30/HPF (0-5/HPF)
[2024-03-28 09:52] LABS: Vitamin B12 > 1000 pg/mL (239-931)
== END ==
PROVIDERS: Nurse Practitioner; PCP Family Medicine; Referring Provider Family Medicine; Visit Provider Family Medicine
DX: D64.9 Anemia, unspecified (principal); R79.89 Other specified abnormal findings of blood chemistry; M85.80 Other specified disorders of bone density and structure, unspecified site; E78.5 Hyperlipidemia, unspecified; I10 Essential (primary) hypertension; R31.29 Other microscopic hematuria; N39.0 Urinary tract infection, site not specified
CPT/HCPCS: 36415; 80053; 81001; 82607; 83540; 83550; 85025; 87077; 87086; 87186

== ENCOUNTER → 2024-10-01 11:28 | Outpatient (CLI) | payer MEDICARE, SELFPAY ==
[2022-05-31 13:35] VITALS: BMI 26.7
== END ==
PROVIDERS: PCP Family Medicine; Visit Provider Urology
DX: R31.29 Other microscopic hematuria (principal); R31.21 Asymptomatic microscopic hematuria
CPT/HCPCS: 51798; 81002; 87086; 99213

== ENCOUNTER → 2025-01-11 10:57 | Outpatient (CLI) | payer MEDICARE, SELFPAY ==
[2022-05-31 13:35] VITALS: BMI 26.7
--- NOTE | 2025-01-11 11:00 | DI.RAD.S_ITS ---
PROCEDURE: XR SHOULDER RT MIN 2V INDICATIONS: shoulder pain TECHNIQUE: Three views of the right shoulder were acquired. COMPARISON: [facility], CR, XR SHOULDER RT MIN 2V, 05/30/2022, 9:58. FINDINGS: Bones: There are no osseous abnormalities. Acromioclavicular and glenohumeral joints: Moderate degeneration of both joints. Soft tissues: No soft tissue swelling, calcification or mass. IMPRESSION: Moderate degeneration Dictated by: Brent Sanchez M.D. on 01/14/2025 at 12:25 Approved by: Brent Sanchez M.D. on 01/14/2025 at 12:26
== END ==
PROVIDERS: PCP Family Medicine; Referring Provider Nurse Practitioner Family; Visit Provider Nurse Practitioner Family
DX: M19.011 Primary osteoarthritis, right shoulder (principal); M25.519 Pain in unspecified shoulder
CPT/HCPCS: 73030